=== PATIENT | male | born 1950 | race African-American/Black ===

== ENCOUNTER 2020-10-02 03:08 | Inpatient (IN) | payer OTHER, SELFPAY ==
--- OUTSIDE RECORDS SUMMARY | 2020-10-02 03:11 | XMS REPORT | Continuity of Care Document ---
:1950 Author Organization [facility] t Address [address] [place] [address] Care Team Providers Name Role Phone MD MIK Primary Care Physician Roger ANDREWS Attending Clinician Unavailable Doctor Unassigned, Name Attending Clinician Unavailable Torrie BLANCO Attending Clinician Urvashi SIERRA Attending Clinician Jabari SIERRA, K Attending Clinician Tavo SIERRA, C Attending Clinician Dominguez SIERRA, Nargis Attending Clinician Danyell SIERRA Attending Clinician Urvashi SIERRA Admitting Clinician Problems Condition Condition Condition Status Onset Resolution Last Treating Co mments Source Name Details Category Date Date Treatment Clinician Date Contusion Problem Active ALEX [facility] - Patient [facility] Allergies, Adverse Reactions, Alerts This patient has no known allergies or adverse reactions. Social History Social Habit Start Date Stop Date Quantity Comments Source Sex Assigned At [birth year] Male ALEX Arango. Roger ukes - 00:00:00 00:00:00 Patients [facility] Medications This patient has no known medications. Vital Signs Vital Name Observation Time Observation Value Comments Source Oxygen saturation by 2020-07-12 22:54:00 100 /min ALEX Fung - Pulse oximetry Patients [facility] Weight 2020-07-12 20:29:00 172 [lb_av] [facility] - Patients [facility] BMI (Body Mass 2020-07-12 20:29:00 26.2 kg/m2 [facility] - Index) Patients [facility] Procedures Procedure Date / Time Performed Performing Clinician Kallie e Computed tomography of 2020-07-12 00:00:00 ALEX Flannery - brain without Patients [facility] radi[facility]aque contrast [facility] Plan of Care Planned Activity Planned Date Details Comments Source Instructions Concussion/Head Injury [facility] Chelo Flannery - - Adult Patients [facility] Encounters Start End Encounter Admission Attending Care Care Encounter Source Date/Time Date/Time Type Type Clinicians Facility Department ID 2020-07-12 2020-07-12 [id number] 20:30:00 23:58:00 Emergency AARON Patients 78 Chandana es - Room [facility] 2020-05-23 2020-05-23 Orders Doctor GURWINDER [id number] 00:00:00 00:00:00 Only Unassigned, KAMALJIT [id number] [facility] 4.2.7.2.686 [id number] 2020-05-09 2020-05-09 Transition Tito Brownlee [id number] 00:00:00 00:00:00 of Care Yamileth Beltre [id number] [place] [id number] [id number] 2020-04-15 2020-05-08 [facility] 1.2.840. 114 [id number] 17:20:00 18:01:00 Encounter Sharri Barbozay 350.1.13 .10 Keith Vo [facility] 4.2.7.2.68 6 Sirena Mix [id number] 2020-04-21 2020-04-21 Multidisci Darinel Child [id number] 00:00:00 00:00:00 plinary KAMALJIT [id number] [facility] [id number] Results Test Description Test Time Test Comments Results Result Sour e Comments CT BRAIN WO 2020-07-12 21:38:00 [facility] : 1950 Sex: M [facility] [address] [place] [address] Patient Name: TROY FITZGERALD MR #: [id number] : 1950 Age/Sex: 70/M Req #: [id number] Adm Physician: Ordered by: AARON ANDREWS MD Report #: [id number] Location: Room/Bed: Procedure: [id number] CT/CT BRAIN WO Exam Date: 07/12/20 Exam Time: 2103 REPORT STATUS: Signed Exam: Head CT without contrast History: Trauma, fall Comparison studies: None Technique: Axial images were obtained from the skull base to the vertex. Coronal and sagittal images reconstructed from the axial data. Dose modulation, iterative reconstruction, and/or weight based adjustment of the mA/kV was utilized to reduce the radiation dose to as low as reasonably achievable. Radiation dose: Total DLP: 947 mGy*cm. Estimated effective dose: DLP x 0.015 Intravenous contrast: None Findings: Scalp and bones: Surgical changes of prior right parietal craniotomy. No acute fracture. Destructive lytic lesion. Confluent sclerotic changes with associated elbow expansion present within the bilateral sphenoid bones which extend along the mcrae of the sphenoid sinuses and sphenoid sinus septum, middle cranial fossa and into the basisphenoid clivus. Similar sclerotic changes are also present along the mcrae of the partially imaged maxillary sinuses. Brain sulci: Moderately prominent. Ventricles: Moderate compensatory dilatation. No hydrocephalus. Extra-axial spaces: No masses, no fluid collection. Parenchyma: Ill-defined and mildly confluent hypodensities in the supratentorial white matter are nonspecific but are most compatible with chronic microvascular ischemic changes. No masses, acute hemorrhage, acute or chronic vascular insults. Sellar/suprasellar region: No abnormalities. Craniocervical junction: Patent foramen magnum. No Chiari one malformation. Incidental findings: Atherosclerotic calcifications in the carotid siphons. IMPRESSION: No acute abnormalities. Chronic findings: 1. Moderate generalized parenchymal volume loss. 2. Mildly confluent supratentorial microvascular ischemic changes. 3. Prior right parietal craniotomy. 4. Confluent sclerotic changes in the central and middle skull base and partially imaged maxillae. Differential includes osseous metastatic disease or possibly fibrous dysplasia. In the absence of prior imaging for comparison to document stability, recommend nuclear medicine bone scan to further evaluate. Signed by: Dr. Agus Turner M.D. on 07/12/2020 9:56 PM Dictated By: AGUS TURNER MD 55 Transcribed By: FARZANEH on 07/12/202155 COPY TO: AARON ANDREWS MD
[2020-10-02 04:09] LABS: Absolute Lymphocytes (CBC) 1.7 K/uL (0.7-4.9); Basophils % 1.3 % (0-1.3); Hematocrit 35.5 % (39.6-49.0); MPV 8.6 fL (7.6-11.3); RBC Red Blood Cell Count 4.47 M/uL (4.33-5.43)
[2020-10-02 04:38] LABS: Protime INR 1.3
[2020-10-02 04:45] LABS: BUN Blood Urea Nitrogen 19 mg/dL (7-18); Bicarbonate 32 mmol/L (21-32); Glucose Level 190 mg/dL (74-106); Potassium 3.5 mmol/L (3.5-5.1); Sodium Level 135 mmol/L (136-145)
[2020-10-02] MEDS ORDERED: NA CHLORIDE 0.9% 1,000 ML ONE (04:49)
--- NOTE | 2020-10-02 05:29 | ER ---
Nurse's Notes [facility] Name: Abilio Torrez Jr Age: 70 yrs Sex: Male : 1950 Arrival Date: 10/02/2020 Time: 03:09 Bed 6 Private MD: Diagnosis: Pneumonia, unspecified organism-Multifocal Presentation: 10/02 03:12 Chief complaint: Patient states: Sent from [facility] for bleeding around sf his tracheostomy. No other complaints. Coronavirus screen: Client denies travel out of the [place] in the last 14 days. At this time, the client does not indicate any symptoms associated with coronavirus-19. Ebola Screen: Patient negative for fever greater than or equal to 101.5 degrees Fahrenheit, and additional compatible Ebola Virus Disease symptoms Patient denies exposure to infectious person. Patient denies travel to an Ebola-affected area in the 21 days before illness onset. No symptoms or risks identified at this time. Initial Sepsis Screen: Does the patient meet any 2 criteria? HR > 90 bpm. No. Patient's initial sepsis screen is negative. Does the patient have a suspected source of infection? Yes: Productive cough/pneumonia. Risk Assessment: Do you want to hurt yourself or someone else? Patient reports no desire to harm self or others. Onset of symptoms was October 02, 2020. 03:12 Method Of Arrival: EMS: [facility] 03:12 Acuity: STEFANI 3 sf Triage Assessment: 03:12 General: Appears in no apparent distress. comfortable, unkempt, Behavior is calm, sf cooperative. Pain: Denies pain. EENT: No signs and/or symptoms were reported regarding the EENT system. Neuro: No deficits noted. Level of Consciousness is awake, alert, Oriented to person, place, time, situation. Cardiovascular: No deficits noted. Patient's skin is warm and dry. Respiratory: Reports cough that is productive, Airway via trache Trachea midline Respiratory effort is even, unlabored, Respiratory pattern is regular, symmetrical. GI: No signs and/or symptoms were reported involving the gastrointestinal system. : No signs and/or symptoms were reported regarding the genitourinary system. Historical: - Allergies: 03:26 No Known Allergies; sf - Home Meds: 03:26 acetaminophen 325 mg Oral tab 2 tabs every 8 hours as needed [Active]; acetylcysteine sf 200 mg/mL (20 %) miscellaneous soln 3 mL 3 times per day [Active]; doxazosin 4 mg oral tab 1 tab once daily [Active]; famotidine 20 mg Oral tab 1 tab every 12 hours [Active]; guaifenesin 100 mg/5 mL Oral liqd 10 mL every 4 hours [Active]; DuoNeb 0.5 mg-3 mg(2.5 mg base)/3 mL Inhl nebu 3 mL every 4 hours as needed [Active]; Miralax 17 gram/dose Oral powd once daily [Active]; multivitamin oral tab daily [Active]; scopolamine transdermal transdermal 1 patch every 72 hours [Active]; senna 8.6 mg oral tab 1 tabs twice a day [Active]; sodium chloride 7 % inhalation nebu 4 mL twice a day [Active]; - PMHx: 03:26 Laryngeal CA; Squamous cell carcinoma; BPH; COPD; Hypertension; Cirrhosis; sf - PSHx: 03:26 Unable to obtain; sf - Immunization history:: Adult Immunizations up to date. - Social history:: Smoking status: Patient/guardian denies using tobacco, Patient/guardian denies using alcohol, street drugs, IV drugs. - Family history:: not pertinent. - Hospitalizations: : No recent hospitalization is reported. Screenin:12 Abuse screen: Denies threats or abuse. Nutritional screening: No deficits noted. ea Tuberculosis screening: No symptoms or risk factors identified. Fall Risk None identified. Assessment: 03:12 Reassessment: SEE TRIAGE ASSESSMENT. sf 04:10 Reassessment: Patient appears in no apparent distress at this time. No changes from sf previously documented assessment. Patient and/or family updated on plan of care and expected duration. Pain level reassessed. Patient is alert, oriented x 3, equal unlabored respirations, skin warm/dry/pink. 05:00 Reassessment: Patient appears in no apparent distress at this time. No changes from sf previously documented assessment. Patient and/or family updated on plan of care and expected duration. Pain level reassessed. Patient is alert, oriented x 3, equal unlabored respirations, skin warm/dry/pink. Patient denies pain at this time. 05:32 Reassessment: Patient appears in no apparent distress at this time. No changes from sf previously documented assessment. Patient and/or family updated on plan of care and expected duration. Pain level reassessed. Patient is alert, oriented x 3, equal unlabored respirations, skin warm/dry/pink. Patient denies pain at this time. 05:37 Reassessment: Called lab to add on Liver Function test to blood already in lab. sf 06:10 Reassessment: Patient appears in no apparent distress at this time. No changes from previously documented assessment. Patient and/or family updated on plan of care and expected duration. Pain level reassessed. Patient is alert, oriented x 3, equal unlabored respirations, skin warm/dry/pink. 07:00 Reassessment: Patient appears in no apparent distress at this time. Patient and/or hb family updated on plan of care and expected duration. Pain level reassessed. Patient is alert, oriented x 3, equal unlabored respirations, skin warm/dry/pink. 08:00 Reassessment: Patient appears in no apparent distress at this time. Patient and/or hb family updated on plan of care and expected duration. Pain level reassessed. Patient is alert, oriented x 3, equal unlabored respirations, skin warm/dry/pink. 09:00 Reassessment: Patient appears in no apparent distress at this time. Patient and/or hb family updated on plan of care and expected duration. Pain level reassessed. Patient is alert, oriented x 3, equal unlabored respirations, skin warm/dry/pink. Vital Signs: 03:10 BP 95 / 61; Pulse 96; Resp 18; Pulse Ox 93% ; sf 03:12 Pulse 106; Resp 18; Temp 98.8; Pulse Ox 98% ; Weight 82.55 kg; Height 6 ft. 0 in. sf (182.88 cm); Pain 0/10; 04:00 BP 89 / 65; Pulse 89; Resp 18; Pulse Ox 99% ; sf 04:04 BP 93 / 71; sf 04:20 BP 87 / 67; Pulse 89; Resp 18; Pulse Ox 98% ; sf 04:55 BP 98 / 69; Pulse 95; Resp 18; Pulse Ox 96% ; sf 05:00 BP 117 / 83; Pulse 82; Resp 18; Pulse Ox 99% ; sf 05:20 BP 107 / 62; Pulse 78; Resp 18; Pulse Ox 100% ; sf 07:30 BP 106 / 74; Pulse 90; Resp 18; Pulse Ox 97% ; hb 08:30 BP 106 / 70; Pulse 82; Resp 17; Pulse Ox 97% on R/A; hb 09:20 BP 104 / 66; Pulse 77; Resp 16; Temp 97.9; Pulse Ox 98% on R/A; Pain 0/10; hb 10:00 BP 106 / 67; ss 10:34 BP 103 / 68; Pulse 77; Resp 16; Pulse Ox 97% on R/A; hb 03:12 Body Mass Index 24.68 (82.55 kg, 182.88 cm) sf 10:34 post sterile trach suctioning, 50mL white/yellow/thick sputum removed, pt reports "feel hb better". ED Course: 03:09 Patient arrived in ED. cl3 03:10 Max Cornell MD is Attending Physician. rn 03:11 Jaison Rubio, FRANCIS is Primary Nurse. sf 03:12 Patient has correct armband on for positive identification. Placed in gown. Bed in low sf position. Call light in reach. Side rails up X2. Pulse ox on. NIBP on. Door closed. Noise minimized. Visitors limited. Lights dimmed. Verbal reassurance given. 03:13 Arm band placed on right wrist. Patient placed in an exam room, on a stretcher, on ea pulse oximetry. 03:14 Triage completed. sf 03:30 X-ray(s) taken. sf 03:34 XRAY Chest (1 view) Sent. sf 03:35 Suctioned via trachea - moderate amount thick yellow sputum by respiratory. sf 03:45 Initial lab(s) drawn, by ia, sent to lab. First set of blood cultures drawn by ia, Respiratory culture obtained via tracheostomy suctioning by respiratory and sent to lab. Inserted saline lock: 20 gauge in left forearm, using aseptic technique. Blood collected. 03:47 XRAY Chest (1 view) In Process Unspecified. EDMS 04:00 CBC with Diff Sent. sf 04:00 Basic Metabolic Panel Sent. sf 04:15 Second set of blood cultures drawn by ia. Inserted saline lock: 20 gauge in right sf forearm, using aseptic technique. Blood collected. 04:29 Blood Culture Adult (2) Sent. sf 04:34 CT Chest Wo Con Sent. sf 05:00 CT Chest Wo Con In Process Unspecified. EDMS 05:00 COVID-19 : Document "Date of Symptom Onset" if Symptomatic. Sent. sf 05:00 COVID swab sent to lab. sf 05:26 No provider procedures requiring assistance completed. Patient admitted, IV remains in sf place. 05:28 Bam Lincoln DO is Hospitalizing Provider. rn 07:11 Report given to FRANCIS Rodgers and FRANCIS Jackson. sf Administered Medications: 04:34 Drug: Sodium Chloride 0.9% 1000 ml Route: IVPB; Site: left forearm; sf 05:32 Follow up: IV Status: Completed infusion; IV Intake: 1000ml sf 05:32 Follow up: Response: No adverse reaction sf 05:36 Drug: LevaQUIN 750 mg Volume: 150 ml; Route: IVPB; Infused Over: 90 mins; Site: left sf forearm; 07:08 Follow up: IV Status: Completed infusion; IV Intake: 150ml sf Intake: 05:32 IV: 1000ml; Total: 1000ml. sf 07:08 IV: 150ml; Total: 1150ml. sf Outcome: 05:28 Decision to Hospitalize by Provider. rn 10:37 Patient left the ED. ss Signatures: Dispatcher [employer] EDMS Max Cornell MD MD rn Smirch, Shelby, RN RN Ana Maria Lucas RN RN hb Antunez, Elena, RN RN ea Lewis, Charde cl3 Jaison Rubio RN RN sf Corrections: (The following items were deleted from the chart) 04:09 03:12 BP 149 / 132; Pulse 106bpm; Resp 18bpm; Pulse Ox 98%; Temp 98.8F; 82.55 kg; sf Height 6 ft. 0 in.; BMI: 24.6; Pain 0/10; sf 05:39 05:38 IV Status: Completed infusion; IV Intake: 1000ml [facility] 05:39 05:38 Response: No adverse reaction sf 09:45 09:39 BP 104 / 66; Pulse 77bpm; Resp 16bpm; Pulse Ox 98% RA; Temp 97.9F; Pain 0/10; hb hb
--- NOTE | 2020-10-02 05:29 | EDPHYS ---
Physician Documentation [facility] Name: Abilio Torrez Jr Age: 70 yrs Sex: Male : 1950 Arrival Date: 10/02/2020 Time: 03:09 Bed 6 Private MD: ED Physician Max Cornell HPI: 10/02 03:20 This 70 yrs old Black Male presents to ER via EMS with complaints of cough. rn 03:20 The patient or guardian reports cough, that is intermittent, described as mild, with rn productive sputum, that is white. Onset: The symptoms/episode began/occurred just prior to arrival. Severity of symptoms: At their worst the symptoms were mild, in the emergency department the symptoms have improved. Modifying factors: The symptoms are alleviated by nothing, the symptoms are aggravated by nothing. The patient has experienced similar episodes in the past. The patient has not recently seen a physician. Per EMS report, senior living noted blood and mucous from tracheostomy, EMS suctioned and patient improved, no further bleeding noted. Per report was small amount. NO fever. Patient reports now feels fine. No recent change or manipulation of tracheostomy tube. No known trauma. Patient denies pain.. Historical: - Allergies: 03:26 No Known Allergies; sf - Home Meds: 03:26 acetaminophen 325 mg Oral tab 2 tabs every 8 hours as needed [Active]; acetylcysteine sf 200 mg/mL (20 %) miscellaneous soln 3 mL 3 times per day [Active]; doxazosin 4 mg oral tab 1 tab once daily [Active]; famotidine 20 mg Oral tab 1 tab every 12 hours [Active]; guaifenesin 100 mg/5 mL Oral liqd 10 mL every 4 hours [Active]; DuoNeb 0.5 mg-3 mg(2.5 mg base)/3 mL Inhl nebu 3 mL every 4 hours as needed [Active]; Miralax 17 gram/dose Oral powd once daily [Active]; multivitamin oral tab daily [Active]; scopolamine transdermal transdermal 1 patch every 72 hours [Active]; senna 8.6 mg oral tab 1 tabs twice a day [Active]; sodium chloride 7 % inhalation nebu 4 mL twice a day [Active]; - PMHx: 03:26 Laryngeal CA; Squamous cell carcinoma; BPH; COPD; Hypertension; Cirrhosis; sf - PSHx: 03:26 Unable to obtain; sf - Immunization history:: Adult Immunizations up to date. - Social history:: Smoking status: Patient/guardian denies using tobacco, Patient/guardian denies using alcohol, street drugs, IV drugs. - Family history:: not pertinent. - Hospitalizations: : No recent hospitalization is reported. ROS: 03:20 Constitutional: Negative for fever, chills Eyes: Negative for injury, pain, redness, rn and discharge, ENT: Negative for injury, pain, and discharge, Neck: Negative for injury, pain, and swelling, Cardiovascular: Negative for chest pain, palpitations, and edema, Respiratory: Negative for shortness of breath,wheezing, and pleuritic chest pain, Abdomen/GI: Negative for abdominal pain, nausea, vomiting, diarrhea, and constipation, Back: Negative for injury and pain, MS/Extremity: Negative for injury and deformity, Skin: Negative for injury, rash, and discoloration, Neuro: Negative for headache, weakness, numbness, tingling, and seizure. Exam: 03:20 Constitutional: Thin male, no acute distress Head/Face: Normocephalic, atraumatic. rn Neck: + midline tracheostomy tube, clear/white sputum, no blood, no active bleeding at site. Cardiovascular: Regular rate and rhythm. No pulse deficits. Respiratory: No increased work of breathing, no retractions or nasal flaring. Abdomen/GI: soft, non-tender Skin: Warm, dry MS/ Extremity: Pulses equal, no cyanosis. Neuro: Awake and alert, GCS 15 Vital Signs: 03:10 BP 95 / 61; Pulse 96; Resp 18; Pulse Ox 93% ; sf 03:12 Pulse 106; Resp 18; Temp 98.8; Pulse Ox 98% ; Weight 82.55 kg; Height 6 ft. 0 in. sf (182.88 cm); Pain 0/10; 04:00 BP 89 / 65; Pulse 89; Resp 18; Pulse Ox 99% ; sf 04:04 BP 93 / 71; sf 04:20 BP 87 / 67; Pulse 89; Resp 18; Pulse Ox 98% ; sf 04:55 BP 98 / 69; Pulse 95; Resp 18; Pulse Ox 96% ; sf 05:00 BP 117 / 83; Pulse 82; Resp 18; Pulse Ox 99% ; sf 05:20 BP 107 / 62; Pulse 78; Resp 18; Pulse Ox 100% ; sf 07:30 BP 106 / 74; Pulse 90; Resp 18; Pulse Ox 97% ; hb 08:30 BP 106 / 70; Pulse 82; Resp 17; Pulse Ox 97% on R/A; hb 09:20 BP 104 / 66; Pulse 77; Resp 16; Temp 97.9; Pulse Ox 98% on R/A; Pain 0/10; hb 10:00 BP 106 / 67; ss 10:34 BP 103 / 68; Pulse 77; Resp 16; Pulse Ox 97% on R/A; hb 03:12 Body Mass Index 24.68 (82.55 kg, 182.88 cm) sf 10:34 post sterile trach suctioning, 50mL white/yellow/thick sputum removed, pt reports "feel hb better". MDM: 03:10 Patient medically screened. rn 04:15 ED course: Virtual radiology rpeorts right line on cxr possibly pneumothorax vs skin rn fold, recommend further imaging, ordered ct scan of chest. . 05:18 Differential Diagnosis: Bronchitis Upper Respiratory Infection Viral Syndrome rn Pneumonia. Data reviewed: vital signs, nurses notes, lab test result(s), radiologic studies, CT scan, plain films, and as a result, I will admit patient. Counseling: I had a detailed discussion with the patient and/or guardian regarding: the historical points, exam findings, and any diagnostic results supporting the discharge/admit diagnosis, lab results, radiology results, the need for further work-up and treatment in the hospital. Admission orders: after a detailed discussion of the patient's condition and case, the admit orders are written by me. ED course: Pt with likely early pneumonia, increased secretions, borderline BP. CT does not show pneumothorax so likely just skin fold on CXR. Will obs to hospitalist service. . 10/02 03:11 Order name: CBC with Diff rn 10/02 03:11 Order name: Basic Metabolic Panel rn 10/02 03:11 Order name: Protime (+inr); Complete Time: 04:42 rn 10/02 03:11 Order name: Ptt, Activated; Complete Time: 04:42 rn 10/02 03:11 Order name: Procalcitonin; Complete Time: 05:33 rn 10/02 03:11 Order name: CBC with Automated Diff; Complete Time: 04:35 EDMS 10/02 03:11 Order name: Basic Metabolic Panel EDMS 10/02 03:12 Order name: Blood Culture Adult (2) rn 10/02 03:12 Order name: Sputum Culture rn 10/02 03:12 Order name: Blood Culture EDMS 10/02 04:36 Order name: COVID-19 : Document "Date of Symptom Onset" if Symptomatic. rn 10/02 05:37 Order name: Liver (Hepatic) Function EDMS 10/02 03:10 Order name: XRAY Chest (1 view) rn 10/02 03:11 Order name: IV Start; Complete Time: 04:00 rn 10/02 03:12 Order name: Suction; Complete Time: 03:36 rn 10/02 04:06 Order name: CT Chest Wo Con rn 10/02 06:16 Order name: SARS-COV-2 RT PCR EDMS Administered Medications: 04:34 Drug: Sodium Chloride 0.9% 1000 ml Route: IVPB; Site: left forearm; sf 05:32 Follow up: IV Status: Completed infusion; IV Intake: 1000ml sf 05:32 Follow up: Response: No adverse reaction sf 05:36 Drug: LevaQUIN 750 mg Volume: 150 ml; Route: IVPB; Infused Over: 90 mins; Site: left sf forearm; 07:08 Follow up: IV Status: Completed infusion; IV Intake: 150ml sf Disposition: 10/02/20 05:28 Hospitalization ordered by Bam Lincoln for Inpatient Admission. Preliminary diagnosis is Pneumonia, unspecified organism - Multifocal. - Bed requested for Telemetry/MedSurg (Inpatient). - Status is Inpatient Admission. ss - Condition is Stable. - Problem is new. - Symptoms have improved. Signatures: Dispatcher [employer] EDDE Max Cornell MD MD rn Martinez, Eric em1 Renetta Perrin RN RN ss Blayne Alvarez, AIR TABLE OPERATOR-C AIR TABLE OPERATOR-Cla1 Nelson Strickland, FRANCIS RN Jaison Cat RN RN sf Corrections: (The following items were deleted from the chart) 05:16 04:37 CORONAVIRUS ordered. EDDE EDMS 05:36 05:34 HEPATIC FUNCTION+C.LAB.BRZ ordered. EDDE EDMS 07:16 05:28 Hospitalization Ordered by Bam Lincoln DO for Inpatient Admission. Preliminary em1 diagnosis is Pneumonia, unspecified organism - Multifocal. Bed requested for Telemetry/MedSurg (Inpatient). Status is Inpatient Admission. Condition is Stable. Problem is new. Symptoms have improved. rn 09:00 07:16 10/02/2020 05:28 Hospitalization Ordered by Bam Lincoln DO for Inpatient ja1 Admission. Preliminary diagnosis is Pneumonia, unspecified organism - Multifocal. Bed requested for [facility] ER HOLD. Status is Inpatient Admission. Condition is Stable. Problem is new. Symptoms have improved. em1 10:37 09:00 10/02/2020 05:28 Hospitalization Ordered by Bam Lincoln DO for Inpatient ss Admission. Preliminary diagnosis is Pneumonia, unspecified organism - Multifocal. Bed requested for Telemetry/MedSurg (Inpatient). Status is Inpatient Admission. Condition is Stable. Problem is new. Symptoms have improved. ja1
--- NOTE | 2020-10-02 05:36 | P.HP ---
Certification for Inpatient Patient admitted to: Observation With expected LOS: <2 Midnights Patient will require the following post-hospital care: None Practitioner: I am a practitioner with admitting privileges, knowledge of patient current condition, hospital course, and medical plan of care. Services: Services provided to patient in accordance with Admission requirements found in Title 42 Section 412.3 of the Code of Federal Regulations Patient History Date of Service: 10/02/20 Primary Care Provider: residential physician Reason for admission: Multifocal pneumonia, hypotension History of Present Illness: 70-year-old male with history of laryngeal cancer status post tracheostomy and PEG tube, hypertension, cirrhosis, COPD presents emergency department for low blood pressure and difficulty breathing. Patient with copious secretions from tracheostomy tube requiring frequent suctioning and blood pressure of 80/40 at the custodial, blood pressure has remained relatively low throughout ED course. Labs significant for white blood cell count 6.6 sodium 135 glucose [address] chest significant for emphysema with superimposed multifocal pneumonia with greatest burden of the right lower lobe, mucus plugging present in the posterior right basal bronchials and intermediate pulmonary nodules present interspersed with infiltrate up to 1 cm could be related to infection recommend noncontrast CT at 3-[address] noncontrast at 18-24 months and nodules do not resolve. Patient remains relatively hypotensive with copious secretions from tracheostomy site, ED provider wishes to admit for pneumonia. Allergies No Known Allergies Allergy (Unverified 08/28/14 15:19) - Past Medical/Surgical History -: Laryngeal cancer status post tracheostomy/PEG tube -: Hypertension -: Cirrhosis of the liver -: COPD -: Tracheostomy -: PEG tube Psychosocial/ Personal History: Patient currently resides in [facility]ial - Family History Father Notes: Extremely difficult understand patient, unable to obtain at this time. - Social History Smoking Status: Former smoker Alcohol use: No CD- Drugs: No Caffeine use: No Place of Residence: [facility] Review of Systems 10-point ROS is otherwise unremarkable Respiratory: Cough, Shortness of Breath, Sputum, As per HPI Physical Examination - Physical Exam General: Alert, In no apparent distress, Oriented x3 HEENT: Atraumatic, Normocephalic, Other (Mucous membranes dry) Respiratory: Clear to auscultation bilaterally, Diminished, Crackles/rales Cardiovascular: Regular rate/rhythm, Normal S1 S2 Capillary refill: <2 Seconds Gastrointestinal: Normal bowel sounds, Soft and benign Musculoskeletal: No contractures, No erythema, No tenderness Integumentary: No significant lesion, No tenderness/swelling, No erythema Neurological: Normal tone, Sensation intact, Cranial nerves 3-12 intact - Studies Laboratory Data (last 24 hrs) 10/02/20 03:45: PT 15.0 H, INR 1.30, APTT 49.4 H 10/02/20 03:45: Sodium 135 L, Potassium 3.5, BUN 19 H, Creatinine 0.65, Glucose 190 H 10/02/20 03:45: WBC 6.60, Hgb 11.2 L, Hct 35.5 L, Plt Count 343 Assessment and Plan - Plan Assessment Dyspnea, increased sputum production related to multifocal pneumonia complicated by history of laryngeal cancer with tracheostomy Dysphagia status post PEG tube placement Hypertension History of cirrhosis COPD Plan Dyspnea, increased sputum production related to multifocal pneumonia complicated by history of laryngeal cancer with tracheostomy: Blood and sputum cultures obtained, continue with IV Levaquin at this time. Patient requiring frequent suctioning from tracheostomy tube, will provide this as necessary. COVID test pending at this time. DVT prophylaxis Lovenox 40 mg subcutaneous once daily. Dysphagia status post PEG tube placement: Continue tube feedings, site appears healthy without redness swelling or drainage. Will consult dietary. Hypertension: Obtain and continue home meds History of cirrhosis: LFTs pending at this time. COPD: Documented history of COPD, patient unaware of diagnosis. Will provide patient with nebs/steroids. Discharge Plan: Home Plan to discharge in: 24 Hours - Advance Directives Does patient have a Living Will: No Does patient have a Durable POA for Healthcare: No - Code Status/Comfort Care Code Status Assessed: Yes (Full code) Critical Care: No Time Spent Managing Pts Care (In Minutes): 55
[2020-10-02] MEDS ORDERED: Levofloxacin 750mg IV 750 MG/150 ML BAG IV ONE (05:47)
[2020-10-02 05:49] LABS: ALT/SGPT 31 U/L (12-78); AST/SGOT 25 U/L (15-37); Albumin 2.6 g/dL (3.4-5.0); Alkaline Phosphatase 76 U/L (45-117); Bilirubin Direct 0.1 mg/dL (0-0.2); Bilirubin Total 0.3 mg/dL (0.2-1.0); Protein, Total 8.1 g/dL (6.4-8.2)
--- NOTE | 2020-10-02 10:11 | RAD REPORT ---
EXAM DESCRIPTION: CT - Thorax Wo Jose - 10/02/2020 6:01 am COMPARISON: Chest radiograph October 02, 2020 CLINICAL HISTORY: [facility] MAIN questionable pneumothorax on cxr TECHNIQUE: CT images through the chest without IV contrast. Multiplanar reformats. Automated expos ure control was utilized on this examination as a dose lowering technique. CT CHEST FINDINGS: Heart and mediastinum: Heart size is normal. Moderate multivessel calcified atherosclerosi s. Chronically calcified hilar and mediastinal lymph nodes are noted. Thyroid gland: Visualized portions are normal. Lungs: Emphysema is present. There are superimposed tree-in-bud nodularity and groundglass opacities in the posterior right upper, right middle, and in the lower lobes. A few chronic calcified granuloma s are noted. Pulmonary nodular opacities measure up to 1.0 cm (right upper lobe on series 201 image 3 0). This are indeterminate and could be related to the acute infection. Airways: Tracheostomy tube in place. Mucous plugging is noted in the posterior right basal bronchiole s. No bronchiectasis. Pleura: No pneumothorax. No significant pleural effusion. Subphrenic structures: Calcified granulomas are noted in the liver and spleen. A PEG tube is in place . Musculoskeletal and soft tissues: Thoracic spondylosis is present. Chronic posterior left eighth rib fracture. IMPRESSION: 1. Emphysema with superimposed multifocal pneumonia with the greatest burden in the righ t lower lobe. Imaging features can be seen with COVID-19 pneumonia, though are nonspecific and can oc cur with a variety of infectious and noninfectious processes 2. Mucous plugging is present in the posterior right basal bronchioles. 3. Indeterminate pulmonary nodules are present, interspersed with infiltrate. These measure up to 1.0 cm and could be related to infection. Recommend a non-contrast Chest CT at 3-6 months, then another non-contrast Chest CT at 18-24 months if nodules do not resolve. 4. Moderate atherosclerosis. Electronically signed by: Albert Melissa MD 10/02/2020 5:17 AM CDT Due to temporary technical issues with the PACS/Fluency reporting system, reports are being signed by the in house radiologists without review as a courtesy to insure prompt reporting. The interpreting radiologist is fully responsible for the content of the report.
--- NOTE | 2020-10-02 10:13 | RAD REPORT ---
EXAM DESCRIPTION: RAD - Chest Single View - 10/02/2020 3:47 am ADDENDUM #1 THIS REPORT CONTAINS FINDINGS THAT MAY BE CRITICAL TO PATIENT CARE: The findings were communicated via telephone conference with Dr. Cornell on 10/02/2020 4:15 AM CDT. The r esults were acknowledged and understood. lectronically signed by: Albert Melissa MD 10/02/2020 4:15 AM CDT End of Addendum EXAM DESCRIPTION: Chest Radiography COMPARISON: Chest radiograph April 15, 2020 report only CLINICAL HISTORY: [facility] MAIN COUGH FINDINGS: A single AP view of the chest demonstrates a normal cardiomediastinal silhouette. Tracheos mikhail tube in place. No pleural effusion. There is a line along the right lateral pleura. Mild bilateral perihilar opaciti es are present. Degenerative changes of the shoulders. IMPRESSION: 1. A line along the right lateral pleural could represent small pneumothorax, skin folds , or overlying sheets. Recommend repeat radiograph. 2. Mild bilateral perihilar opacities favor early infection or mild edema. Electronically signed by: Albert Melissa MD 10/02/2020 3:58 AM CDT Due to temporary technical issues with the PACS/Fluency reporting system, reports are being signed by the in house radiologists without review as a courtesy to insure prompt reporting. The interpreting radiologist is fully responsible for the content of the report.
[2020-10-02] MEDS ORDERED: ONDANSETRON 4 MG/2 ML VIAL IV PRN (11:01)
[2020-10-02] MEDS: IPRATROPIUM BROM 0.5MG/2.5ML NEB SCH ×3 (11:01→20:20)
[2020-10-02] MEDS: ALBUTEROL 2.5 MG/3 ML NEB SOL NEB SCH ×3 (11:01→20:20)
[2020-10-02] MEDS: NA CHLORIDE 0.9% 1,000 ML IV SCH ×2 (11:20→21:15)
[2020-10-02] MEDS: METHYLPREDNISOLONE 40 MG INJ IV SCH ×2 (11:26→16:53)
[2020-10-02] MEDS: ENOXAPARIN 40 MG/0.4 ML SQ SCH (11:26)
[2020-10-02 12:10] VITALS: BMI 16.9
--- NOTE | 2020-10-02 13:56 | P.CNS ---
Date of Consult: 10/02/20 Primary Care Provider: [facility] physician Chief Complaint: Multifocal pneumonia, hypotension History of Present Illness: Patient is 70 years of age with a history of laryngeal cancer status post tracheostomy and a PEG tube multiple other medical problems including hypertension cirrhosis COPD admitted with low pressure difficulty breathing copious secretions admitted with the possibility of pneumonia he is doing a little better still less some cough congestion Allergies No Known Allergies Allergy (Verified 10/02/20 11:29) - Past Medical/Surgical History Diabetic: No -: Laryngeal cancer status post tracheostomy/PEG tube -: Hypertension -: Cirrhosis of the liver -: COPD -: Tracheostomy -: PEG tube Psychosocial/ Personal History: Patient currently resides in [facility] - Family History Father Notes: Extremely difficult understand patient, unable to obtain at this time. - Social History Smoking Status: Current every day smoker Alcohol use: No CD- Drugs: No Caffeine use: No Place of Residence: [facility] Review of Systems General: Weakness Respiratory: Cough, Shortness of Breath Physical Examination Temp Pulse Resp BP Pulse Ox 97.6 F 84 16 107/59 L 95 10/02/20 12:00 10/02/20 12:00 10/02/20 12:00 10/02/20 12:00 10/02/20 12:00 General: Alert, Moderate distress Respiratory: Expiratory wheezes Cardiovascular: No edema, Regular rate/rhythm Gastrointestinal: Normal bowel sounds, Soft and benign Laboratory Data (last 24 hrs) 10/02/20 05:34: Total Bilirubin Cancelled, AST Cancelled, ALT Cancelled, Alkaline Phosphatase Cancelled 10/02/20 03:45: PT 15.0 H, INR 1.30, APTT 49.4 H 10/02/20 03:45: Sodium 135 L, Potassium 3.5, BUN 19 H, Creatinine 0.65, Glucose 190 H, Total Bilirubin 0.3, AST 25, ALT 31, Alkaline Phosphatase 76 10/02/20 03:45: WBC 6.60, Hgb 11.2 L, Hct 35.5 L, Plt Count 343 - Problems (1) Pneumonia Current Visit: Yes Status: Acute Plan: Patient is 70 years of age multiple medical problems laryngeal cancer tracheostomy PEG tube admitted with shortness of breath hypotension as currently stable final signs are all stable minimal changes on the CT scan in the right lower lobe mild microcytosis probably the worsening of his COPD the add steroids bronchodilator change can have antibiotics via PEG tube stable evaluate for discharge tomorrow room-air saturation is satisfactory I am not sure what bronchodilators is on at home in her home medication and is CA nebulize bronchodilators he poly needs a long-acting bronchodilator at home benefit from [facility] Qualifiers: Pneumonia type: due to unspecified organism
--- NOTE | 2020-10-02 15:08 | P.PN ---
Subjective Date of Service: 10/02/20 Primary Care Provider: [facility] physician Chief Complaint: Multifocal pneumonia, hypotension Subjective: Improving Physical Examination - Vital Signs Temperature: 97.6 F Blood Pressure: 107/59 Pulse: 84 Respirations: 16 Pulse Ox (%): 95 - Studies Laboratory Data (last 24 hrs) 10/02/20 05:34: Total Bilirubin Cancelled, AST Cancelled, ALT Cancelled, Alkaline Phosphatase Cancelled 10/02/20 03:45: PT 15.0 H, INR 1.30, APTT 49.4 H 10/02/20 03:45: Sodium 135 L, Potassium 3.5, BUN 19 H, Creatinine 0.65, Glucose 190 H, Total Bilirubin 0.3, AST 25, ALT 31, Alkaline Phosphatase 76 10/02/20 03:45: WBC 6.60, Hgb 11.2 L, Hct 35.5 L, Plt Count 343 Microbiology Data (last 24 hrs): 10/02/20 03:45 Sputum Sputum Gram Stain - Final Assessment & Plan Discharge Plan: [facility] Plan to discharge in: Greater than 2 days Physician Review Additional Text: Physical exam: Patient alert. Cooperative. Heart: Regular rate and rhythm Lungs: With increase wheezing. Copious amounts of sputum production from trac heostomy. Abdomen: Soft nontender nondistended Extremities: Muscle wasting noted. Assessment Dyspnea, increased sputum production related to multifocal pneumonia complicated by history of laryngeal cancer with tracheostomy Dysphagia status post PEG tube placement Hypertension History of cirrhosis COPD Plan Dyspnea, increased sputum production related to multifocal pneumonia complicated by history of laryngeal cancer with tracheostomy: Continue IV antibiotic therapy. Continue with pulmonology recommendations. We will add medication for COPD. Continue IV steroids. Continue frequent suctioning from tracheostomy. Continue snf medication. DVT prophylaxis in place. Anticipate improvement over the next 48 hours. Dysphagia status post PEG tube placement: Continue tube feedings, site appears healthy without redness swelling or drainage. Will consult dietary to address daily needs. Hypertension: We will verify snf medication History of cirrhosis: LFTs unremarkable. We will monitor this closely.. COPD: Pulmonology recommends that the patient will require COPD medication at discharge. Continue with current plan of care. Time Spent Managing Pts Care (In Minutes): 55
[2020-10-02] MEDS ORDERED: DOCUSATE NA/SENNA CONC 1 TAB PO PRN (15:48)
[2020-10-02] MEDS ORDERED: SCOPOLAMINE HYDROBROMIDE PATCH TD SCH (16:00)
[2020-10-02] MEDS: ACETYLCYST 20% 4 ML VIAL IH SCH (20:00)
[2020-10-02] MEDS: ARFORMOTEROL TARTRATE 15 MCG/2 ML VIAL.NEB NEB SCH (20:20)
[2020-10-02] MEDS ORDERED: DOCUSATE SODIUM PO SCH (21:00)
[2020-10-02] MEDS ORDERED: SENNOSIDES PO SCH (21:00)
[2020-10-02] MEDS ORDERED: ACETYLCYSTEINE 200 MG/ML NEB SCH (21:00)
[2020-10-03] MEDS: METHYLPREDNISOLONE 40 MG INJ IV SCH ×2 (00:59→09:28)
[2020-10-03] MEDS: JEVITY 1.5 CAL LIQUID 1,000 ML BOT FT SCH ×3 (00:59→12:00)
[2020-10-03] MEDS: ALBUTEROL 2.5 MG/3 ML NEB SOL NEB SCH ×2 (01:30→07:22)
[2020-10-03] MEDS: IPRATROPIUM BROM 0.5MG/2.5ML NEB SCH ×2 (01:30→07:22)
[2020-10-03 05:48] LABS: Absolute Lymphocytes (CBC) 0.9 K/uL (0.7-4.9); Basophils % 0.4 % (0-1.3); Hematocrit 34.3 % (39.6-49.0); Lymphocytes % 12.8 % (15.3-44.8); MPV 8.2 fL (7.6-11.3); RBC Red Blood Cell Count 4.32 M/uL (4.33-5.43)
[2020-10-03] MEDS ORDERED: Levofloxacin500mg IV 500 MG/100 ML BAG IV SCH (06:00)
[2020-10-03 07:17] LABS: ALT/SGPT 23 U/L (12-78); AST/SGOT 18 U/L (15-37); Albumin 2.3 g/dL (3.4-5.0); Alkaline Phosphatase 62 U/L (45-117); BUN Blood Urea Nitrogen 17 mg/dL (7-18); Bicarbonate 31 mmol/L (21-32); Bilirubin Total 0.3 mg/dL (0.2-1.0); Ferritin 843.7 ng/mL (26-388); Glucose Level 104 mg/dL (74-106); HDL Cholesterol 63 mg/dL (40-60); LDL Cholesterol, Calculated 88 (<130); Magnesium 2.1 mg/dL (1.8-2.4); Potassium 4.3 mmol/L (3.5-5.1); Protein, Total 7.3 g/dL (6.4-8.2); Sodium Level 139 mmol/L (136-145); Transferrin 193 mg/dL (200-360)
[2020-10-03] MEDS: ACETYLCYST 20% 4 ML VIAL IH SCH (07:22)
[2020-10-03] MEDS: ARFORMOTEROL TARTRATE 15 MCG/2 ML VIAL.NEB NEB SCH (07:22)
[2020-10-03 08:36] VITALS: O2SAT 92
--- NOTE | 2020-10-03 08:37 | RAD REPORT ---
EXAM DESCRIPTION: RAD - Chest Pa And Lat (2 Views) - 10/03/2020 7:10 am CLINICAL HISTORY: follow up pneumonia COMPARISON: CT chest October 02, portable chest October 02 TECHNIQUE: Frontal and lateral views of the chest were obtained. FINDINGS: The lungs are extensively fibrotic as a baseline. Flattened diaphragm and increased retro sternal space noted. Patient has a trach tube in place. Increased interstitial opacification at each lung base consistent with superimposed pneumonia. Pattern is not substantially different from compari son imaging. Heart size is normal and central vasculature is within normal limits. No pleural effusi on or pneumothorax seen. No acute bony finding noted. No aortic abnormality. IMPRESSION: Lung base pneumonia superimposed on prominent COPD. Chest findings are not substantially different from prior day imaging.
[2020-10-03] MEDS ORDERED: HOME MED 1 EA UNK (Multivitamin [Multivitamin] Tablet) PO SCH (09:00)
[2020-10-03] MEDS ORDERED: MULTIVITAMIN TAB PO SCH (09:00)
[2020-10-03] MEDS ORDERED: POLYETHYL GLY 3350 17 GM/DOSE PO SCH (09:00)
[2020-10-03] MEDS ORDERED: DOXAZOSIN 4 MG TAB PO SCH (09:00)
--- NOTE | 2020-10-03 09:09 | P.DS ---
Admission Date: 10/02/20 Discharge Date: 10/03/20 Primary Care Provider: custodial physician Disposition: TRANSFER TO [facility] Discharge Condition: GOOD Reason for Admission: Multifocal pneumonia, hypotension Consultations: Pulmonary-Dr. Graham Procedures: COVID: Negative CT scan: FINDINGS: Heart and mediastinum: Heart size is normal. Moderate multivessel calcified atherosclerosis. Chronically calcified hilar and mediastinal lymph nodes are noted. Thyroid gland: Visualized portions are normal. Lungs: Emphysema is present. There are superimposed tree-in-bud nodularity and groundglass opacities in the posterior right upper, right middle, and in the lower lobes. A few chronic calcified granulomas are noted. Pulmonary nodular opacities measure up to 1.0 cm (right upper lobe on series 201 image 30). This are indeterminate and could be related to the acute infection. Airways: Tracheostomy tube in place. Mucous plugging is noted in the posterior right basal bronchioles. No bronchiectasis. Pleura: No pneumothorax. No significant pleural effusion. Subphrenic structures: Calcified granulomas are noted in the liver and spleen. A PEG tube is in place. Musculoskeletal and soft tissues: Thoracic spondylosis is present. Chronic posterior left eighth rib fracture. IMPRESSION: 1. Emphysema with superimposed multifocal pneumonia with the greatest burden in the right lower lobe. Imaging features can be seen with COVID-19 pneumonia, though are nonspecific and can occur with a variety of infectious and noninfectious processes 2. Mucous plugging is present in the posterior right basal bronchioles. 3. Indeterminate pulmonary nodules are present, interspersed with infiltrate. These measure up to 1.0 cm and could be related to infection. Recommend a non- contrast Chest CT at 3-6 months, then another non-contrast Chest CT at 18-24 months if nodules do not resolve. 4. Moderate atherosclerosis. Follow up CXR: COMPARISON: CT chest October 02, portable chest October 02 TECHNIQUE: Frontal and lateral views of the chest were obtained. FINDINGS: The lungs are extensively fibrotic as a baseline. Flattened diaphragm and increased retrosternal space noted. Patient has a trach tube in place. Increased interstitial opacification at each lung base consistent with superimposed pneumonia. Pattern is not substantially different from comparison imaging. Heart size is normal and central vasculature is within normal limits. No pleural effusion or pneumothorax seen. No acute bony finding noted. No aortic abnormality. IMPRESSION: Lung base pneumonia superimposed on prominent COPD. Chest findings are not substantially different from prior day imaging. Medical Problem List: Dyspnea, increased sputum production related to multifocal pneumonia complicated by history of laryngeal cancer with tracheostomy and COPD Dysphagia status post PEG tube placement CT scan showing indeterminate pulmonary nodules History of cirrhosis GERD Mild protein malnutrition BPH Brief History of Present Illness: 70-year-old male with history of laryngeal cancer status post tracheostomy and PEG tube, hypertension, cirrhosis, COPD presents emergency department for low blood pressure and difficulty breathing. Patient with copious secretions from tracheostomy tube requiring frequent suctioning and blood pressure of 80/40 at the skilled nursing, blood pressure has remained relatively low throughout ED course. Labs significant for white blood cell count 6.6 sodium 135 glucose [address] chest significant for emphysema with superimposed multifocal pneumonia with greatest burden of the right lower lobe, mucus plugging present in the posterior right basal bronchials and intermediate pulmonary nodules present interspersed with infiltrate up to 1 cm could be related to infection. Patient was admitted for further evaluation and treatment. Hospital Course: Patient presented with dyspnea, increased sputum production. Patient found to have multifocal pneumonia with greatest burden in the right lower lobe. Mucus plugging also noted to the posterior right basal bronchials. Indeterminate pulmonary nodules noted on CT scan. Patient responded well to IV antibiotic therapy and steroids. Pulmonology was consulted. Frequent suctioning from the tracheostomy was performed. Patient with history of laryngeal cancer now with tracheostomy in place. Sputum culture obtained. Blood culture so far negative. Repeat chest x-ray shows no significant changes. Patient does not require any oxygen currently. COPD medication was started. At discharge the patient will continue with Levaquin 500 mg daily for 7 days. Sputum cultures will need to be followed up on. At discharge for his COPD, the patient may continue with Trelegy one puff daily, albuterol/Atrovent 1 unit dose every 4 hours as needed for shortness of breath, and acetylcystiene 1 unit dose 3 times a day. Patient also may continue with scopolamine patch every 72 hours. The patient will also continue with prednisone 20 mg 1 pill twice daily for 7 days then 1 pill once daily for 7 days. At discharge will need to make sure that his tracheostomy is suctioned frequently at the skilled nursing. Recommend follow-up with pulmonology in 1 week to follow-up his hospitalization. Recommend to recheck chest x-ray in 2 to 4 weeks to monitor resolution. It is also recommended that the patient have a repeat CT chest in 3 to 6 months to monitor the pulmonary nodules. Patient with history of cirrhosis. This appears stable. This can be followed as an outpatient. Patient likely with GERD. At discharge patient may continue with Pepcid 20 mg twice daily. Patient patient with history of dysphagia. Now with PEG tube. This is likely related to his laryngeal cancer. At discharge patient may continue with his current PEG tube feedsJevity 1.5. 237 mL every 6 hours. Patient is n.p.o. Patient with mild protein malnutrition. Will recommend thiamine 100 mg daily and folic acid 1 mg daily to be started at discharge. Patient may continue with his multivitamin daily. Will recommend dietary to further monitor and adjust his PEG tube feeds to make sure patient gets adequate nutrition. This can be done and followed at the skilled nursing. Patient with BPH. At discharge he will continue with his current medicationCardura 4 mg daily. Vital Signs/Physical Exam: Temp Pulse Resp BP Pulse Ox 98.5 F 93 H 16 103/53 L 97 10/03/20 08:00 10/03/20 08:00 10/03/20 08:00 10/03/20 08:00 10/03/20 08:00 General: Alert, In no apparent distress, Oriented x3, Cooperative HEENT: Atraumatic Neck: Supple Respiratory: Expiratory wheezes (Occasional), Other (Better air movement bilateral.) Cardiovascular: Normal pulses, Regular rate/rhythm Gastrointestinal: Normal bowel sounds, Soft and benign, Non-distended, No tenderness, No masses, No rebound, No guarding Neurological: Normal speech, Normal strength at 5/5 x4 extr, Normal tone, Normal affect Laboratory Data at Discharge: WBC 6.90 K/uL (4.3-10.9) 10/03/20 05:29 Hgb 10.9 g/dL (13.6-17.9) L 10/03/20 05:29 Hct 34.3 % (39.6-49.0) L 10/03/20 05:29 Plt Count 355 K/uL (152-406) 10/03/20 05:29 PT 15.0 SECONDS (9.5-12.5) H 10/02/20 03:45 INR 1.30 10/02/20 03:45 APTT 49.4 SECONDS (24.3-36.9) H 10/02/20 03:45 Sodium 139 mmol/L (136-145) 10/03/20 05:29 Potassium 4.3 mmol/L (3.5-5.1) 10/03/20 05:29 BUN 17 mg/dL (7-18) 10/03/20 05:29 Creatinine 0.59 mg/dL (0.55-1.3) 10/03/20 05:29 Glucose 104 mg/dL (74-106) 10/03/20 05:29 Magnesium 2.1 mg/dL (1.8-2.4) 10/03/20 05:29 Total Bilirubin 0.3 mg/dL (0.2-1.0) 10/03/20 05:29 AST 18 U/L (15-37) 10/03/20 05:29 ALT 23 U/L (12-78) 10/03/20 05:29 Alkaline Phosphatase 62 U/L (45-117) 10/03/20 05:29 Triglycerides 58 mg/dL (<150) 10/03/20 05:29 Cholesterol 163 mg/dL (<200) 10/03/20 05:29 HDL Cholesterol 63 mg/dL (40-60) H 10/03/20 05:29 Cholesterol/HDL Ratio 2.59 10/03/20 05:29 Home Medications: RX: Acetaminophen 650 mg FT BID PRN 10/02/20 RX: Acetylcysteine 3 ml NEB TID 10/02/20 RX: Doxazosin [Cardura*] 4 mg FT DAILY 10/02/20 RX: Famotidine 20 mg FT Q12H 10/02/20 RX: Guaifenesin [Cough Syrup] 10 ml FT Q4HP PRN 10/02/20 RX: Ipratropium/Albuterol Sulfate [Iprat-Albut 0.5-3(2.5) mg/3 ml] 3 ml IH Q4HP PRN 10/02/20 RX: Multivitamin 1 tab FT DAILY 10/02/20 RX: Polyethylene Glycol 3350 [Miralax] 17 gm FT DAILYPRN PRN 10/02/20 RX: Scopolamine [Transderm-Scop] 1 patch TD Q72H 10/02/20 RX: Sennosides/Docusate Sodium [Senna Plus 8.6-50 mg Softgel] 8.6 mg FT Q12HP PRN 10/02/20 RX: Sodium Chloride For Inhalation [Hyper-Kana] 4 ml IH BID 10/02/20 Fluticasone/Umeclidin/Vilanter [Trelegy Ellipta 100-62.5-25] 1 each IH DAILY #1 blst.w.dev 10/03/20 Levofloxacin [Levaquin] 500 mg FT DAILY #7 tablet 10/03/20 RX: Folic Acid 1 mg FT DAILY #90 tablet 10/03/20 RX: Thiamine HCl 100 mg FT DAILY #90 tablet 10/03/20 RX: predniSONE [Prednisone*] 20 mg FT SEECOM #21 tab 10/03/20 New Medications: RX: Folic Acid 1 mg FT DAILY #90 tablet Levofloxacin [Levaquin] 500 mg FT DAILY #7 tablet RX: predniSONE [Prednisone*] 20 mg FT SEECOM #21 tab RX: Thiamine HCl 100 mg FT DAILY #90 tablet Fluticasone/Umeclidin/Vilanter [Trelegy Ellipta 100-62.5-25] 1 each IH DAILY #1 blst.w.dev Physician Discharge Instructions: Patient presented with dyspnea, increased sputum production. Patient found to have multifocal pneumonia with greatest burden in the right lower lobe. Mucus plugging also noted to the posterior right basal bronchials. Indeterminate pulmonary nodules noted on CT scan. Patient responded well to IV antibiotic therapy and steroids. Pulmonology was consulted. Frequent suctioning from the tracheostomy was performed. Patient with history of laryngeal cancer now with tracheostomy in place. Sputum culture obtained. Blood culture so far negative. Repeat chest x-ray shows no significant changes. Patient does not require any oxygen currently. COPD medication was started. At discharge the patient will continue with Levaquin 500 mg daily for 7 days. Sputum cultures will need to be followed up on. At discharge for his COPD, the patient may continue with Trelegy one puff daily, albuterol/Atrovent 1 unit dose every 4 hours as needed for shortness of breath, and acetylcystiene 1 unit dose 3 times a day. Patient also may continue with scopolamine patch every 72 hours. The patient will also continue with prednisone 20 mg 1 pill twice daily for 7 days then 1 pill once daily for 7 days. At discharge will need to make sure that his tracheostomy is suctioned frequently at the skilled nursing. Recommend follow-up with pulmonology in 1 week to follow-up his hospitalization. Recommend to recheck chest x-ray in 2 to 4 weeks to monitor resolution. It is also recommended that the patient have a repeat CT chest in 3 to 6 months to monitor the pulmonary nodules. Patient with history of cirrhosis. This appears stable. This can be followed as an outpatient. Patient likely with GERD. At discharge patient may continue with Pepcid 20 mg twice daily. Patient patient with history of dysphagia. Now with PEG tube. This is likely related to his laryngeal cancer. At discharge patient may continue with his current PEG tube feedsJevity 1.5. 237 mL every 6 hours. Patient is n.p.o. Patient with mild protein malnutrition. Will recommend thiamine 100 mg daily and folic acid 1 mg daily to be started at discharge. Patient may continue with his multivitamin daily. Will recommend dietary to further monitor and adjust his PEG tube feeds to make sure patient gets adequate nutrition. This can be done and followed at the skilled nursing. Patient with BPH. At discharge he will continue with his current medicationCardura 4 mg daily. Diet: PEG feeds Activity: Fall precautions Followup: Unknown,U [Primary Care Provider] - Time spent managing pt's care (in minutes): 55
[2020-10-03] MEDS: NA CHLORIDE 0.9% 1,000 ML IV SCH (09:27)
[2020-10-03] MEDS: ENOXAPARIN 40 MG/0.4 ML SQ SCH (09:28)
[2020-10-03] MEDS ORDERED: DOXAZOSIN 2 MG TAB ONE (09:37)
[2020-10-03 13:27] VITALS: BP 99/64
[2020-10-03 13:53] VITALS: TEMP 98
== END 2020-10-03 14:48 | DRG 194 ==
LOC: ER 03:08 → ERHOLD 05:38 → 2ND 09:46 → OBSVTOIN 11:43
PROVIDERS: ADMIT Family Medicine; ATTEND Family Medicine
DX: J18.9 Pneumonia, unspecified organism (principal); J44.0 Chronic obstructive pulmonary disease with (acute) lower respiratory infection; E44.1 Mild protein-calorie malnutrition; Z68.1 Body mass index [BMI] 19.9 or less, adult; K21.9 Gastro-esophageal reflux disease without esophagitis; I10 Essential (primary) hypertension; N40.0 Benign prostatic hyperplasia without lower urinary tract symptoms; Z79.899 Other long term (current) drug therapy; Z93.0 Tracheostomy status; Z87.891 Personal history of nicotine dependence; Z79.52 Long term (current) use of systemic steroids; Z85.21 Personal history of malignant neoplasm of larynx; Z20.822 Contact with and (suspected) exposure to COVID-19
CPT/HCPCS: 36415; 71045; 71046; 71250; 80048; 80053; 80061; 80076; 82607; 82728; 83036; 83540; 83735; 84145; 84439; 84443; 84466; 85025; 85610; 85730; 87040; 87070; 87077; 87186; 87205; 94640; 96365; 96367; 99284; G0378; J1650; J2920; J7030; J7605; U0003

== ENCOUNTER 2020-10-24 11:12 | Inpatient (IN) | payer OTHER, SELFPAY ==
--- OUTSIDE RECORDS SUMMARY | 2020-10-24 11:14 | XMS REPORT | Continuity of Care Document ---
:1950 Author Organization [facility] t Address [address] [place] [address] Care Team Providers Name Role Phone MD MIK Primary Care Physician Roger ANDREWS Attending Clinician Unavailable Doctor Unassigned, Name Attending Clinician Unavailable Torrie BLANCO Attending Clinician Urvashi SIERRA Attending Clinician Jabari SIERRA, K Attending Clinician Tavo SIERRA, C Attending Clinician Nargis Mix MD Attending Clinician Danyell SIERRA Attending Clinician Urvashi SIERRA Admitting Clinician Problems Condition Condition Condition Status Onset Resolution Last Treating Co mments Source Name Details Category Date Date Treatment Clinician Date Contusion Problem Active [facility] Patient [facility] Allergies, Adverse Reactions, Alerts This patient has no known allergies or adverse reactions. Social History Social Habit Start Date Stop Date Quantity Comments Source Sex Assigned At [address] [facility] - 00:00:00 00:00:00 Patients [facility] Medications This patient has no known medications. Vital Signs Vital Name Observation Time Observation Value Comments Source Oxygen saturation by 2020-07-12 22:54:00 100 /min [facility] - Pulse oximetry Patients [facility] Weight 2020-07-12 20:29:00 172 [lb_av] [facility] - Patients [facility] BMI (Body Mass 2020-07-12 20:29:00 26.2 kg/m2 [facility] - Index) Patients [facility] Procedures Procedure Date / Time Performed Performing Clinician Kallie mcmillan Computed tomography of 2020-07-12 00:00:00 [facility] - brain without Patients Medical radiopaque contrast Center Plan of Care Planned Activity Planned Date Details Comments Source Instructions Concussion/Head Injury [facility] - - Adult Patients [facility] Encounters Start End Encounter Admission Attending Care Care Encounter Source Date/Time Date/Time Type Type Clinicians Facility Department ID 2020-07-12 2020-07-12 Departed 1 DARRYL [facility] [id number] [facility] 20:30:00 23:58:00 Emergency AARON Patients [address] - Room [facility] 2020-05-23 2020-05-23 Orders Doctor GURWINDER [id number] 00:00:00 00:00:00 Only Unassigned, KAMALJIT [id number] [facility] [id number] [id number] 2020-05-09 2020-05-09 Transition Tito Brownlee [id number] 00:00:00 00:00:00 of Care Yamileth Beltre [id number] [place] [id number] [id number] 2020-04-15 2020-05-08 [facility] Suhail Landin 1.2.840. 114 [id number] 17:20:00 18:01:00 Encounter Jabari Sharrihillary Hernandezy [id number] .10 [facility] 4.2.7[facility]2.68 6 Sirena Mix [id number] 2020-04-21 2020-04-21 Multidisci Darinel Child [id number] 00:00:00 00:00:00 plinary KAMALJIT [id number] [facility] [id number] [id number] Results Test Description Test Time Test Comments Results Result Sourc e Comments CT BRAIN WO 2020-07-12 21:38:00 [facility] : 1950 Sex: M [facility] [address] [place] [address] Patient Name: TROY FITZGERALD MR #: [id number] : 1950 Age/Sex: 70/M Req #: [id number] Adm Physician: Ordered by: AARON ANDREWS MD Report #: [id number] Location: Room/Bed: Procedure: [id number] CT/CT BRAIN WO Exam Date: 07/12/20 Exam [...]
--- NOTE | 2020-10-24 11:58 | EDPHYS ---
Physician Documentation [facility] Name: Abilio Torrez Jr Age: 70 yrs Sex: Male : 1950 Arrival Date: 10/24/2020 Time: 11:12 Bed 14 Private MD: ED Physician Ajith Jerome HPI: 10/24 11:28 This 70 yrs old Black Male presents to ER via EMS with complaints of Shortness Of diane Breath. 11:28 The patient has shortness of breath at rest. Onset: The symptoms/episode began/occurred diane 2 day(s) ago. Duration: The symptoms are continuous, and are steadily getting worse. The patient's shortness of breath is aggravated by coughing, supine position, is alleviated by elevating head, nebulizer treatment, rest, sitting up, application of supplemental oxygen. Associated signs and symptoms: Pertinent positives: productive cough. Severity of symptoms: At their worst the symptoms were moderate in the emergency department the symptoms are worse. The patient has experienced similar episodes in the past, multiple times. Historical: - Allergies: : No Known Allergies; bp - Home Meds: : acetaminophen 325 mg Oral tab 2 tabs every 8 hours as needed [Active]; acetylcysteine bp 200 mg/mL (20 %) miscellaneous soln 3 mL 3 times per day [Active]; doxazosin 4 mg Oral tab 1 tab once daily [Active]; famotidine 20 mg Oral tab 1 tab every 12 hours [Active]; senna 8.6 mg Oral tab 1 tabs twice a day [Active]; DuoNeb 0.5 mg-3 mg(2.5 mg base)/3 mL Inhl nebu 3 mL every 4 hours as needed [Active]; scopolamine transdermal 1 patch every 72 hours [Active]; Miralax 17 gram/dose Oral powd once daily [Active]; - PMHx: : Laryngeal CA; squamous cell carcinoma; Hypertension; COPD; Cirrhosis; BPH; bp - Immunization history:: Adult Immunizations up to date. - Social history:: Smoking status: unknown. - Family history:: not pertinent. ROS: 11:28 Constitutional: Negative for fever, chills, and weight loss, Eyes: Negative for injury, diane pain, redness, and discharge, ENT: Negative for injury, pain, and discharge, Neck: Negative for injury, pain, and swelling, Cardiovascular: Negative for chest pain, palpitations, and edema, Abdomen/GI: Negative for abdominal pain, nausea, vomiting, diarrhea, and constipation, Back: Negative for injury and pain, : Negative for injury, bleeding, discharge, and swelling, MS/Extremity: Negative for injury and deformity, Skin: Negative for injury, rash, and discoloration, Neuro: Negative for headache, weakness, numbness, tingling, and seizure, Psych: Negative for depression, anxiety, suicide ideation, homicidal ideation, and hallucinations, Allergy/Immunology: Negative for hives, rash, and allergies, Endocrine: Negative for neck swelling, polydipsia, polyuria, polyphagia, and marked weight changes. 11:28 Respiratory: Positive for cough, shortness of breath, at rest. Exam: 11:28 Constitutional: This is a well developed, well nourished patient who is awake, alert, diane and in no acute distress. Head/Face: Normocephalic, atraumatic. Eyes: Pupils equal round and reactive to light, extra-ocular motions intact. Lids and lashes normal. Conjunctiva and sclera are non-icteric and not injected. Cornea within normal limits. Periorbital areas with no swelling, redness, or edema. Neck: Trachea midline, no thyromegaly or masses palpated, and no cervical lymphadenopathy. Supple, full range of motion without nuchal rigidity, or vertebral point tenderness. No Meningismus. Chest/axilla: Normal chest wall appearance and motion. Nontender with no deformity. No lesions are appreciated. Cardiovascular: Regular rate and rhythm with a normal S1 and S2. No gallops, murmurs, or rubs. Normal PMI, no JVD. No pulse deficits. Abdomen/GI: Soft, non-tender, with normal bowel sounds. No distension or tympany. No guarding or rebound. No evidence of tenderness throughout. Back: No spinal tenderness. No costovertebral tenderness. Full range of motion. Skin: Warm, dry with normal turgor. Normal color with no rashes, no lesions, and no evidence of cellulitis. MS/ Extremity: Pulses equal, no cyanosis. Neurovascular intact. Full, normal range of motion. Neuro: Awake and alert, GCS 15, oriented to person, place, time, and situation. Cranial nerves II-XII grossly intact. Motor strength 5/5 in all extremities. Sensory grossly intact. Cerebellar exam normal. Normal gait. Psych: Awake, alert, with orientation to person, place and time. Behavior, mood, and affect are within normal limits. 11:28 ENT: Posterior pharynx: Airway: normal, no evidence of obstruction, trach with secretions, heavy. 12:47 ECG was reviewed by the Attending Physician. [facility] Vital Signs: 11:13 BP 98 / 60; Pulse 100; Resp 24; Temp 98.9; Pulse Ox 89% on 3 lpm NC; bp MDM: 11:19 Patient medically screened. diane 11:31 Differential diagnosis: Anemia asthma, Bronchitis CHF exacerbation, Chronic Obstructive diane Pulmonary Disease pneumonia. Antibiotic administration: zosyn and vancomycin. The patient's Wells Deep Vein Thrombosis Score was calculated as follows: Imm/Surg in last 4 wks (1.5 Pts) Total Score: 0-2 Pts- Low Risk. The patient's pulmonary embolism risk score was calculated as follows: patient has experienced immobilization or surgery in the last four weeks (1.5 Pts) Total Score: 0-2 points. This patient was found to be at low risk for a pulmonary embolism by using the Well's assessment criteria. Immunization status: Pneumococcal vaccine: Influenza vaccine: Data reviewed: vital signs, nurses notes, lab test result(s), EKG, radiologic studies, plain films. Data interpreted: case monitor: rate is 100 beats/min, rhythm is regular, Pulse oximetry: on 50% oxygen by face mask, is 89 %. Test interpretation: by ED physician or midlevel provider: ECG, plain radiologic studies. Counseling: I had a detailed discussion with the patient and/or guardian regarding: the historical points, exam findings, and any diagnostic results supporting the discharge/admit diagnosis, lab results, radiology results, the need for further work-up and treatment in the hospital. 10/24 11:28 Order name: Basic Metabolic Panel; Complete Time: 13:58 [facility] 10/24 11:28 Order name: CBC with Diff; Complete Time: 13:32 [facility] 10/24 11:28 Order name: LFT's; Complete Time: 13:58 [facility] 10/24 11:28 Order name: Magnesium; Complete Time: 13:58 [facility] 10/24 11:28 Order name: NT PRO-BNP; Complete Time: 13:58 [facility] 10/24 11:28 Order name: PT-INR; Complete Time: 13:58 [facility] 10/24 11:28 Order name: Troponin (emerg Dept Use Only); Complete Time: 13:58 10/24 11:28 Order name: Blood Culture Adult (2) 10/24 11:28 Order name: Sputum Culture [facility] 10/24 11:28 Order name: Lactate; Complete Time: 13:58 [facility] 10/24 13:00 Order name: SARS-COV-2 RT PCR; Complete Time: 13:07 EDKS 10/24 13:01 Order name: Comprehensive Metabolic Panel EDKS 10/24 13:01 Order name: Comprehensive Metabolic Panel EDKS 10/24 11:28 Order name: XRAY Chest (1 view); Complete Time: 12:35 [facility] 10/24 13:01 Order name: Lipid Profile [facility] 10/24 13:01 Order name: Lipid Profile [facility] 10/24 13:01 Order name: Magnesium EDMS 10/24 13:01 Order name: Magnesium EDMS 10/24 13:01 Order name: NT PRO-BNP EDKS 10/24 13:01 Order name: NT PRO-BNP EDKS 10/24 13:01 Order name: Protime (+INR) EDMS 10/24 13:01 Order name: Protime (+INR) EDMS 10/24 13:01 Order name: PTT, Activated Partial Thromb EDMS 10/24 13:01 Order name: PTT, Activated Partial Thromb EDMS 10/24 13:02 Order name: CBC with Automated Diff EDMS 10/24 13:02 Order name: CBC with Automated Diff EDMS 10/24 11:28 Order name: EKG; Complete Time: 11:29 10/24 11:28 Order name: Cardiac monitoring; Complete Time: 11:50 10/24 11:28 Order name: EKG - Nurse/Tech; Complete Time: 12:45 10/24 11:28 Order name: IV Saline Lock; Complete Time: 12:45 10/24 11:28 Order name: Labs collected and sent; Complete Time: 12:45 10/24 11:28 Order name: O2 Per Protocol; Complete Time: 11:50 10/24 11:28 Order name: O2 Sat Monitoring; Complete Time: 11:50 [facility] 10/24 13:01 Order name: Heart Healthy EDMS EC:47 Rate is 112 beats/min. Rhythm is regular. QRS [place] is Normal. CA interval is normal. diane QRS interval is normal. QT interval is normal. No Q waves. T waves are Normal. No ST changes noted. Clinical impression: Sinus tachycardia and No evidence of ischemia. Interpreted by me. Reviewed by me. Administered Medications: 12:00 Drug: NS 0.9% 1000 ml Route: IV; Rate: 125 ml/hr; Site: right forearm; bp 12:00 Drug: Zosyn 3.375 grams Route: IVPB; Infused Over: 60 mins; Site: right forearm; bp 13:19 Follow up: IV Status: Completed infusion bp 12:00 Drug: Xopenex (levalbuterol) 3.75 mg Route: Inhalation; bp 12:00 Drug: AtroVENT (ipratropium) Aerosol 0.5 mg Route: Inhalation; bp 12:00 Drug: Pepcid (famotidine) 20 mg Route: IVP; Site: right forearm; bp 13:19 Follow up: Response: No adverse reaction bp 13:00 Drug: vancoMYCIN 1 grams Route: IVPB; Infused Over: 2 hrs; Site: right forearm; bp 14:02 Drug: NS 0.9% 1000 ml Route: IV; Rate: 1 bolus; Site: right forearm; bp Disposition: 10/24/20 11:57 Hospitalization ordered by Josephine Ceja for Inpatient Admission. Preliminary diagnosis are Dyspnea, Tracheostomy status, Tracheostomy complications, Hypoxemia, Pneumonia, unspecified organism - aspiration, Chronic obstructive pulmonary disease, unspecified. - Bed requested for Telemetry/MedSurg (Inpatient). - Status is Inpatient Admission. bp - Condition is Fair. - Problem is new. - Symptoms have worsened. Signatures: Dispatcher [employer] EDKS Violette Sommer RN RN Ajith Conti MD MD cha Peltier, Brian, RN RN bp Corrections: (The following items were deleted from the chart) 12:08 11:29 CORONAVIRUS+.LAB.BRZ ordered. [facility] 14:14 11:57 Hospitalization Ordered by Josephine Ceja MD for Inpatient Admission. Preliminary dw diagnosis is Dyspnea; Tracheostomy status; Tracheostomy complications; Hypoxemia; Pneumonia, unspecified organism - aspiration; Chronic obstructive pulmonary disease, unspecified. Bed requested for Telemetry/MedSurg (Inpatient). Status is Inpatient Admission. Condition is Fair. Problem is new. Symptoms have worsened. diane 15:08 14:14 10/24/2020 11:57 Hospitalization Ordered by Josephine Ceja MD for Inpatient bp Admission. Preliminary diagnosis is Dyspnea; Tracheostomy status; Tracheostomy complications; Hypoxemia; Pneumonia, unspecified organism - aspiration; Chronic obstructive pulmonary disease, unspecified. Bed requested for Telemetry/MedSurg (Inpatient). Status is Inpatient Admission. Condition is Fair. Problem is new. Symptoms have worsened. dw
--- NOTE | 2020-10-24 11:58 | ER ---
Nurse's Notes [facility] Name: Abilio Torrez Jr Age: 70 yrs Sex: Male : 1950 Arrival Date: 10/24/2020 Time: 11:12 Bed 14 Private MD: Diagnosis: Dyspnea;Tracheostomy status;Tracheostomy complications;Hypoxemia;Pneumonia, unspecified organism-aspiration;Chronic obstructive pulmonary disease, unspecified Presentation: 10/24 11:13 Chief complaint: EMS states: [facility] STATES SECRETIONS ARE THICKER THAN NORMAL. bp Coronavirus screen: At this time, the client does not indicate any symptoms associated with coronavirus-19. Ebola Screen: No symptoms or risks identified at this time. Initial Sepsis Screen: Does the patient meet any 2 criteria? HR > 90 bpm. No. Patient's initial sepsis screen is negative. Does the patient have a suspected source of infection? Yes: Productive cough/pneumonia. Risk Assessment: Do you want to hurt yourself or someone else? Patient reports no desire to harm self or others. Onset of symptoms is unknown. 11:13 Method Of Arrival: EMS: [facility] bp 11:13 Acuity: STEFANI 3 bp Triage Assessment: :23 General: Appears in no apparent distress. comfortable, slender, Behavior is bp cooperative, appropriate for age, anxious, drowsy. Pain:. EENT: Tympanic membrane TRACH WITH TRACH COLLAR TO 3L O2. Neuro: Level of Consciousness is awake, obeys commands, Oriented to Appropriate for age. Cardiovascular: Rhythm is sinus rhythm. Respiratory: Breath sounds are diminished in right middle lobe and right lower lobe. GI: No signs and/or symptoms were reported involving the gastrointestinal system. : No signs and/or symptoms were reported regarding the genitourinary system. Derm: No deficits noted. Musculoskeletal: No deficits noted. Historical: - Allergies: : No Known Allergies; bp - Home Meds: : acetaminophen 325 mg Oral tab 2 tabs every 8 hours as needed [Active]; acetylcysteine bp 200 mg/mL (20 %) miscellaneous soln 3 mL 3 times per day [Active]; doxazosin 4 mg Oral tab 1 tab once daily [Active]; famotidine 20 mg Oral tab 1 tab every 12 hours [Active]; senna 8.6 mg Oral tab 1 tabs twice a day [Active]; DuoNeb 0.5 mg-3 mg(2.5 mg base)/3 mL Inhl nebu 3 mL every 4 hours as needed [Active]; scopolamine transdermal 1 patch every 72 hours [Active]; Miralax 17 gram/dose Oral powd once daily [Active]; - PMHx: 11:23 Laryngeal CA; squamous cell carcinoma; Hypertension; COPD; Cirrhosis; BPH; bp - Immunization history:: Adult Immunizations up to date. - Social history:: Smoking status: unknown. - Family history:: not pertinent. Screenin:23 Abuse screen: Denies threats or abuse. Denies injuries from another. Nutritional bp screening: No deficits noted. Tuberculosis screening: No symptoms or risk factors identified. Fall Risk None identified. Assessment: 11:23 General: SEE TRIAGE NOTE. bp Vital Signs: 11:13 BP 98 / 60; Pulse 100; Resp 24; Temp 98.9; Pulse Ox 89% on 3 lpm NC; bp ED Course: 11:12 Patient arrived in ED. ds1 11:13 Pete Nagel, FRANCIS is Primary Nurse. bp 11:14 Triage completed. bp 11:19 Ajith Jerome MD is Attending Physician. diane 11:23 Patient has correct armband on for positive identification. Bed in low position. Call bp light in reach. Side rails up X2. 11:36 Arm band placed on. Antipyretics given from triage as ordered by an ER provider. bp 11:55 Josephine Ceja MD is Hospitalizing Provider. diane 12:03 XRAY Chest (1 view) In Process Unspecified. EDMS 14:39 No provider procedures requiring assistance completed. Patient admitted, IV remains in bp place. Administered Medications: 12:00 Drug: NS 0.9% 1000 ml Route: IV; Rate: 125 ml/hr; Site: right forearm; bp 12:00 Drug: Zosyn 3.375 grams Route: IVPB; Infused Over: 60 mins; Site: right forearm; bp 13:19 Follow up: IV Status: Completed infusion bp 12:00 Drug: Xopenex (levalbuterol) 3.75 mg Route: Inhalation; bp 12:00 Drug: AtroVENT (ipratropium) Aerosol 0.5 mg Route: Inhalation; bp 12:00 Drug: Pepcid (famotidine) 20 mg Route: IVP; Site: right forearm; bp 13:19 Follow up: Response: No adverse reaction bp 13:00 Drug: vancoMYCIN 1 grams Route: IVPB; Infused Over: 2 hrs; Site: right forearm; bp 14:02 Drug: NS 0.9% 1000 ml Route: IV; Rate: 1 bolus; Site: right forearm; bp Outcome: 11:57 Decision to Hospitalize by Provider. diane 14:40 Admitted to Tele accompanied by tech, via wheelchair, with chart, Report called to bp ROSAMARIA BLANCO 14:40 Condition: stable 14:40 Instructed on the need for admit. 15:08 Patient left the ED. bp Signatures: Dispatcher [employer] Ajith Bobo MD MD cha Sanford, Demi ds1 Pete Nagel, RN RN bp
[2020-10-24] MEDS ORDERED: ALBUTEROL 2.5 MG/3 ML NEB SOL ONE ×2 (12:18→15:10)
[2020-10-24] MEDS ORDERED: LEVALBUTEROL 1.25 MG/3 ML NEB ONE (12:18)
[2020-10-24] MEDS ORDERED: NA CHLORIDE 0.9% 1,000 ML ONE (12:19)
[2020-10-24] MEDS ORDERED: FAMOTIDINE 20 MG/2 ML VIAL IV ONE (12:19)
[2020-10-24] MEDS ORDERED: PIPER/TAZO/NS 3.375gm 3.375 GM/100 ML BAG ONE (12:19)
[2020-10-24] MEDS ORDERED: IPRATROPIUM BROM 0.5MG/2.5ML ONE ×2 (12:19→15:10)
--- NOTE | 2020-10-24 12:22 | RAD REPORT ---
EXAM DESCRIPTION: Ramon Single View10/24/2020 12:03 pm CLINICAL HISTORY: Cough COMPARISON: October 03, 2020 FINDINGS: Worsening in right basilar lung opacities. Additional bilateral interstitial opacities probably are mostly chronic. The heart is normal size. Tr acheostomy tube noted. Heart is normal size IMPRESSION: Worsening in right basilar lung opacities likely pneumonia
[2020-10-24] MEDS ORDERED: ACETAMINOPHEN 500 MG TAB PO PRN (12:58)
[2020-10-24] MEDS ORDERED: ONDANSETRON 4 MG/2 ML VIAL IV PRN (12:58)
[2020-10-24] MEDS ORDERED: VANCOMYCIN/NS 1 gm 1 GM/250 ML BAG IVPB ONE (13:00)
[2020-10-24] MEDS: NA CHLORIDE 0.9% 1,000 ML IV SCH (13:00)
[2020-10-24 13:21] LABS: Absolute Lymphocytes (CBC) 1.6 K/uL (0.7-4.9); Basophils % 0.5 % (0-1.3); Hematocrit 40.1 % (39.6-49.0); Lymphocytes % 16.8 % (15.3-44.8); MPV 8.7 fL (7.6-11.3); RBC Red Blood Cell Count 4.95 M/uL (4.33-5.43)
[2020-10-24 13:31] LABS: Protime INR 1.25
[2020-10-24 13:40] LABS: ALT/SGPT 41 U/L (12-78); AST/SGOT 21 U/L (15-37); Albumin 2.7 g/dL (3.4-5.0); Alkaline Phosphatase 71 U/L (45-117); BUN Blood Urea Nitrogen 18 mg/dL (7-18); Bicarbonate 30 mmol/L (21-32); Bilirubin Direct 0.2 mg/dL (0-0.2); Bilirubin Total 0.5 mg/dL (0.2-1.0); Glucose Level 107 mg/dL (74-106); Magnesium 2.2 mg/dL (1.8-2.4); NT PRO-BNP 216 pg/mL (<125); Potassium 3.7 mmol/L (3.5-5.1); Protein, Total 7.7 g/dL (6.4-8.2); Sodium Level 137 mmol/L (136-145); Troponin (Emerg Dept Use Only) < 0.02 ng/mL (0.0-0.045)
[2020-10-24] MEDS ORDERED: AZITHROMYCIN IV 500 MG in NA CHLORIDE 0.9% 250 ML IVPB SCH ×4 (14:00)
[2020-10-24] MEDS: IPRATROPIUM BROM 0.5MG/2.5ML NEB SCH ×2 (14:50→21:35)
[2020-10-24] MEDS: ALBUTEROL 2.5 MG/3 ML NEB SOL NEB SCH ×2 (14:50→21:35)
[2020-10-24] MEDS ORDERED: CEFTRIAXONE/SWI 1gm 1 GM/10 ML SYR IVP SCH ×2 (15:00→21:00)
--- NOTE | 2020-10-24 15:11 | P.HP ---
Certification for Inpatient Patient admitted to: Inpatient With expected LOS: >2 Midnights Patient will require the following post-hospital care: None Practitioner: I am a practitioner with admitting privileges, knowledge of patient current condition, hospital course, and medical plan of care. Services: Services provided to patient in accordance with Admission requirements found in Title 42 Section 412.3 of the Code of Federal Regulations Patient History Date of Service: 10/24/20 Reason for admission: Nosocomial acquired pneumonia History of Present Illness: Pt is a 70-year-old gentleman who [facility] at the [facility]. He came into the emergency room because he has been coughing & congestion. Patient lives at a [facility]. He has laryngeal cancer and status post tracheostomy. Patient has continued to lose some weight. He has recently been admitted for similar issues about a week and half ago. She was start on IV antibiotic therapy. Cl inically he is not improving. He came into the emergency room for further evaluation. Allergies No Known Allergies Allergy (Verified 10/02/20 11:29) Home Medications: Acetaminophen 650 mg FT BID PRN 10/02/20 Acetylcysteine 3 ml NEB TID 10/02/20 Doxazosin [Cardura*] 4 mg FT DAILY 10/02/20 Famotidine 20 mg FT Q12H 10/02/20 Guaifenesin [Cough Syrup] 10 ml FT Q4HP PRN 10/02/20 Ipratropium/Albuterol Sulfate [Iprat-Albut 0.5-3(2.5) mg/3 ml] 3 ml IH Q4HP PRN 10/02/20 Multivitamin 1 tab FT DAILY 10/02/20 Polyethylene Glycol 3350 [Miralax] 17 gm FT DAILYPRN PRN 10/02/20 Scopolamine [Transderm-Scop] 1 patch TD Q72H 10/02/20 Sennosides/Docusate Sodium [Senna Plus 8.6-50 mg Softgel] 8.6 mg FT Q12HP PRN 10/02/20 Sodium Chloride For Inhalation [Hyper-Kana] 4 ml IH BID 10/02/20 Fluticasone/Umeclidin/Vilanter [Trelegy Ellipta 100-62.5-25] 1 each IH DAILY #1 blst.w.dev 10/03/20 Folic Acid 1 mg FT DAILY #90 tablet 10/03/20 Levofloxacin [Levaquin] 500 mg FT DAILY #7 tablet 10/03/20 Thiamine HCl 100 mg FT DAILY #90 tablet 10/03/20 predniSONE [Prednisone*] 20 mg FT SEECOM #21 tab 10/03/20 - Past Medical/Surgical History Has patient received pneumonia vaccine in the past: Yes Diabetic: No -: Laryngeal cancer status post tracheostomy/PEG tube -: Hypertension -: Cirrhosis of the liver -: COPD -: Tracheostomy -: PEG tube Psychosocial/ Personal History: Patient currently resides in [facility] - Family History Father Notes: Extremely difficult understand patient, unable to obtain at this time. - Social History Alcohol use: No CD- Drugs: No Caffeine use: No Review of Systems 10-point ROS is otherwise unremarkable Physical Examination - Vital Signs Temperature: 101 F Blood Pressure: 100/60 Pulse: 80 Respirations: 22 Pulse Ox (%): 90 - Physical Exam General: Alert, In no apparent distress, Oriented x3 HEENT: Atraumatic, Normocephalic Neck: Other (Trach in place with secretions) Respiratory: Diminished, Expiratory wheezes Cardiovascular: Regular rate/rhythm, Normal S1 S2, No murmurs Gastrointestinal: Normal bowel sounds, Soft and benign, Non-distended Musculoskeletal: No clubbing, No swelling Neurological: Normal gait, Sensation intact, Cranial nerves 3-12 intact, Abnormal strength Lymphatics: No axilla or inguinal lymphadenopathy - Studies Laboratory Data (last 24 hrs) 10/24/20 12:15: PT 14.4 H, INR 1.25 10/24/20 12:15: WBC 9.80, Hgb 12.6 L, Hct 40.1, Plt Count 363 10/24/20 12:15: Sodium 137, Potassium 3.7, BUN 18, Creatinine 0.62, Glucose 107 H, Magnesium 2.2, Total Bilirubin 0.5, AST 21, ALT 41, Alkaline Phosphatase 71 Assessment & Plan - Problems (Diagnosis) (1) Nosocomial pneumonia Current Visit: Yes Status: Acute (2) Laryngeal cancer Current Visit: Yes Status: Acute (3) HTN (hypertension) Current Visit: Yes Status: Acute (4) Cirrhosis of liver Current Visit: Yes Status: Acute - Plan 1. Continue with IV antibiotics 2. Awaiting sputum and blood culture 3. Repeat chest x-ray 4. Will proceed with CT scan of the chest if pneumonia 5. Trach collar 6. Continue with nebs as needed 7. O2 per protocol 8. Continue with gentle hydration 9. Repeat labs including CBC and renal function in a.m. 10. GI and DVT prophylaxis Discharge Plan: Home Plan to discharge in: Greater than 2 days - Advance Directives Does patient have a Living Will: No Does patient have a Durable POA for Healthcare: No - Code Status/Comfort Care Code Status Assessed: Yes Code Status: Full Code Critical Care: No Time Spent Managing PTS Care (In Minutes): 45
[2020-10-24] MEDS: Levofloxacin500mg IV 500 MG/100 ML BAG IV SCH (17:58)
[2020-10-24] MEDS: PIPER/TAZO/NS 3.375gm 3.375 GM/100 ML BAG IVPB SCH (17:58)
[2020-10-24] MEDS: ENOXAPARIN 40 MG/0.4 ML SQ SCH (17:58)
[2020-10-24] MEDS ORDERED: PNEUMOCOCCAL VACCINE 0.5 ML IMVAC ONE (20:00)
[2020-10-24] MEDS ORDERED: POTASSIUM CL SA 10 MEQ TAB PO ONE (21:00)
[2020-10-24] MEDS: SMZ./TMP. 800/160 MG TABLET PO SCH (21:06)
[2020-10-25] MEDS: PIPER/TAZO/NS 3.375gm 3.375 GM/100 ML BAG IVPB SCH ×3 (01:07→17:03)
[2020-10-25] MEDS: IPRATROPIUM BROM 0.5MG/2.5ML NEB SCH ×4 (02:03→20:00)
[2020-10-25] MEDS: ALBUTEROL 2.5 MG/3 ML NEB SOL NEB SCH ×4 (02:03→20:00)
[2020-10-25 06:00] LABS: Absolute Lymphocytes (CBC) 0.9 K/uL (0.7-4.9); Basophils % 0.2 % (0-1.3); Hematocrit 36.6 % (39.6-49.0); Lymphocytes % 5.8 % (15.3-44.8); MPV 8.4 fL (7.6-11.3); RBC Red Blood Cell Count 4.58 M/uL (4.33-5.43)
[2020-10-25 06:10] LABS: Protime INR 1.61
[2020-10-25 06:18] LABS: ALT/SGPT 31 U/L (12-78); AST/SGOT 14 U/L (15-37); Albumin 2.5 g/dL (3.4-5.0); Alkaline Phosphatase 70 U/L (45-117); BUN Blood Urea Nitrogen 14 mg/dL (7-18); Bicarbonate 30 mmol/L (21-32); Bilirubin Total 0.7 mg/dL (0.2-1.0); Glucose Level 96 mg/dL (74-106); HDL Cholesterol 70 mg/dL (40-60); LDL Cholesterol, Calculated 82 (<130); NT PRO-BNP 515 pg/mL (<125); Potassium 4.6 mmol/L (3.5-5.1); Protein, Total 7.1 g/dL (6.4-8.2); Sodium Level 140 mmol/L (136-145)
--- NOTE | 2020-10-25 07:58 | EKG ---
Test Date: 2020-10-24 Test Time: 12:36:12 Educational Adviser: BP MEASUREMENT RESULTS: Intervals: Rate: 112 TN: QRSD: 100 QT: 378 QTc: 515 [place]: P: TN: QRS: -70 T: 67 INTERPRETIVE STATEMENTS: Accelerated Junctional rhythm with occasional premature ventricular complexes Left axis deviation Abnormal ECG Compared to ECG 08/28/2014 13:50:20 Accelerated junctional rhythm now present Ventricular premature complex(es) now present Left-axis deviation now present Sinus rhythm no longer present Left anterior fascicular block no longer present Electronically Signed On 10-25-20 07:56:41 CDT by Romel Benitez
[2020-10-25] MEDS: NA CHLORIDE 0.9% 1,000 ML IV SCH (09:00)
[2020-10-25 09:28] LABS: Blood Morphology Comment NOT SEEN (NOT SEEN); Platelet Estimate ADEQ
[2020-10-25] MEDS: ENOXAPARIN 40 MG/0.4 ML SQ SCH (10:00)
[2020-10-25] MEDS: SMZ./TMP. 800/160 MG TABLET PO SCH ×2 (10:00→21:03)
[2020-10-25] MEDS ORDERED: HYDROCORTISONE SUC 100 MG INJ IV ONE (14:05)
--- NOTE | 2020-10-25 14:06 | P.PN ---
Subjective Date of Service: 10/25/20 Patient clinically doing well with no new complaints. Symptoms are improved. Still with a lot of congestion. Review of Systems 10-point ROS is otherwise unremarkable Physical Examination - Vital Signs Temperature: 97.0 F Blood Pressure: 105/58 Pulse: 81 Respirations: 16 Pulse Ox (%): 99 - Physical Exam General: Alert, In no apparent distress HEENT: Atraumatic, PERRLA, EOMI Neck: Supple, JVD not distended Respiratory: Clear to auscultation bilaterally, Normal air movement Cardiovascular: Regular rate/rhythm, Normal S1 S2 Gastrointestinal: Normal bowel sounds, No tenderness Musculoskeletal: No tenderness Integumentary: No rashes Neurological: Normal speech, Normal tone, Normal affect Lymphatics: No axilla or inguinal lymphadenopathy - Studies Medications List Reviewed: Yes Assessment & Plan - Problems (Diagnosis) (1) Nosocomial pneumonia Current Visit: Yes Status: Acute (2) Laryngeal cancer Current Visit: Yes Status: Acute (3) HTN (hypertension) Current Visit: Yes Status: Acute (4) Cirrhosis of liver Current Visit: Yes Status: Acute - Plan 1. Continue with IV antibiotics 2. Awaiting sputum and blood culture 3. Repeat chest x-ray 4. Will proceed with CT scan of the chest if pneumonia 5. Trach collar 6. Continue with nebs as needed 7. O2 per protocol 8. Continue with gentle hydration 9. Repeat labs including CBC and renal function in a.m. 10. GI and DVT prophylaxis - Advance Directives Does patient have a Living Will: No Does patient have a Durable POA for Healthcare: No - Code Status/Comfort Care Code Status: Full Code
[2020-10-25] MEDS ORDERED: SCOPOLAMINE HYDROBROMIDE PATCH TD ONE (15:00)
[2020-10-25 16:23] VITALS: BMI 14.2
[2020-10-25] MEDS: Levofloxacin500mg IV 500 MG/100 ML BAG IV SCH (17:02)
[2020-10-26] MEDS: PIPER/TAZO/NS 3.375gm 3.375 GM/100 ML BAG IVPB SCH ×3 (00:45→19:43)
[2020-10-26] MEDS: IPRATROPIUM BROM 0.5MG/2.5ML NEB SCH ×4 (01:45→20:18)
[2020-10-26] MEDS: ALBUTEROL 2.5 MG/3 ML NEB SOL NEB SCH ×4 (01:45→20:18)
[2020-10-26] MEDS: NA CHLORIDE 0.9% 1,000 ML IV SCH (04:59)
[2020-10-26 06:16] LABS: Absolute Lymphocytes (CBC) 1.2 K/uL (0.7-4.9); Basophils % 0.1 % (0-1.3); Hematocrit 35.6 % (39.6-49.0); Lymphocytes % 10.9 % (15.3-44.8); MPV 8.4 fL (7.6-11.3); RBC Red Blood Cell Count 4.42 M/uL (4.33-5.43)
[2020-10-26 06:21] LABS: BUN Blood Urea Nitrogen 12 mg/dL (7-18); Bicarbonate 28 mmol/L (21-32); Glucose Level 75 mg/dL (74-106); Magnesium 2.2 mg/dL (1.8-2.4); NT PRO-BNP 775 pg/mL (<125); Phosphorus 3.4 mg/dL (2.5-4.9); Potassium 4.6 mmol/L (3.5-5.1); Sodium Level 140 mmol/L (136-145)
--- NOTE | 2020-10-26 08:33 | RAD REPORT ---
EXAM DESCRIPTION: Ramon Single View10/26/2020 6:50 am CLINICAL HISTORY: Chest pain COMPARISON: October 24 FINDINGS: Worsening left basilar opacities. No significant change right lung opacities. Dextrocardia. Heart is normal size. Tracheostomy tube place IMPRESSION: Worsening in left basilar no significant change in right pulmonary opacities likely pne umonia
[2020-10-26] MEDS: SMZ./TMP. 800/160 MG TABLET PO SCH ×2 (09:48→21:36)
[2020-10-26] MEDS: ENOXAPARIN 40 MG/0.4 ML SQ SCH (09:48)
[2020-10-26] MEDS ORDERED: HYDROCORTISONE SUC 100 MG INJ IV ONE (15:40)
[2020-10-26] MEDS ORDERED: NA CHLORIDE 0.9% 500 ML IV ONE (15:40)
[2020-10-26] MEDS: Levofloxacin500mg IV 500 MG/100 ML BAG IV SCH (18:19)
[2020-10-27] MEDS: PIPER/TAZO/NS 3.375gm 3.375 GM/100 ML BAG IVPB SCH ×2 (00:29→09:00)
[2020-10-27] MEDS: NA CHLORIDE 0.9% 1,000 ML IV SCH (00:30)
[2020-10-27] MEDS: IPRATROPIUM BROM 0.5MG/2.5ML NEB SCH ×4 (02:00→20:50)
[2020-10-27] MEDS: ALBUTEROL 2.5 MG/3 ML NEB SOL NEB SCH ×4 (02:00→20:50)
--- NOTE | 2020-10-27 06:30 | P.PN ---
Date of Service: 10/26/20 Subjective Patient continued to improve with no new complaints. Blood pressure is a little on the low side. Review of Systems 10-point ROS is otherwise unremarkable Physical Examination - Vital Signs Reviewed - Physical Exam General: Alert, In no apparent distress Respiratory: Clear to auscultation bilaterally, Normal air movement Cardiovascular: Regular rate/rhythm, Normal S1 S2 Gastrointestinal: Normal bowel sounds, No tenderness Neurological: Normal speech, Normal tone, Normal affect Assessment & Plan - Problems (Diagnosis) (1) Nosocomial pneumonia Current Visit: Yes Status: Acute (2) Laryngeal cancer Current Visit: Yes Status: Acute (3) HTN (hypertension) Current Visit: Yes Status: Acute (4) Cirrhosis of liver Current Visit: Yes Status: Acute - Plan Continue with plan of care as mentioned below: 1. Continue with IV antibiotics 2. Awaiting sputum and blood culture 3. Repeat chest x-ray 4. Will proceed with CT scan of the chest if pneumonia 5. Trach collar 6. Continue with nebs as needed 7. O2 per protocol 8. Continue with gentle hydration 9. Repeat labs including CBC and renal function in a.m. 10. GI and DVT prophylaxis - Advance Directives Does patient have a Living Will: No Does patient have a Durable POA for Healthcare: No - Code Status/Comfort Care Code Status: Full Code
[2020-10-27 06:48] LABS: Absolute Lymphocytes (CBC) 1.3 K/uL (0.7-4.9); Basophils % 0.6 % (0-1.3); Hematocrit 32.5 % (39.6-49.0); Lymphocytes % 14.6 % (15.3-44.8); MPV 8.8 fL (7.6-11.3); RBC Red Blood Cell Count 4.06 M/uL (4.33-5.43)
[2020-10-27 06:49] LABS: BUN Blood Urea Nitrogen 13 mg/dL (7-18); Bicarbonate 25 mmol/L (21-32); Glucose Level 86 mg/dL (74-106); NT PRO-BNP 532 pg/mL (<125); Potassium 4.2 mmol/L (3.5-5.1); Sodium Level 140 mmol/L (136-145)
--- NOTE | 2020-10-27 08:48 | RAD REPORT ---
EXAM DESCRIPTION: RAD - Chest Single View - 10/27/2020 6:33 am CLINICAL HISTORY: pneumonia Chest pain. COMPARISON: Chest Single View dated 10/26/2020; Chest Single View dated 10/24/2020; Chest Pa And Lat ( 2 Views) dated 10/03/2020; Chest Single View dated 10/02/2020 FINDINGS: Portable technique limits examination quality. Emphysematous changes are present throughout the lungs with little overall change in the right lung b ase opacity. Mild improvement in the left lung base infiltrate is seen. The heart is upper limit norm al in size with a tortuous thoracic aorta. Tracheostomy tube is stable in position approximately 2 cm above the level of the aortic arch. IMPRESSION: Mild to moderate improvement in left lung base pneumonia.
[2020-10-27] MEDS: SMZ./TMP. 800/160 MG TABLET PO SCH ×2 (09:00→22:04)
[2020-10-27] MEDS: ENOXAPARIN 40 MG/0.4 ML SQ SCH (09:00)
[2020-10-27 09:03] LABS: Anisocytosis 1+; Blood Morphology Comment NOTED (NOT SEEN); Platelet Estimate ADEQ
[2020-10-27] MEDS ORDERED: DOCUSATE NA/SENNA CONC 1 TAB FT PRN (13:13)
--- NOTE | 2020-10-27 13:21 | P.PN ---
Subjective Date of Service: 10/27/20 Primary Care Provider: care home Chief Complaint: Nosocomial acquired pneumonia Subjective: Improving Physical Examination - Vital Signs Temperature: 97.8 F Blood Pressure: 106/52 Pulse: 80 Respirations: 20 Pulse Ox (%): 93 - Studies Medications List Reviewed: Yes Assessment & Plan Discharge Plan: Jail Plan to discharge in: 24 Hours Physician Review Additional Text: Physical exam: Patient alert, cooperative. Neck: Trach appears stable. Heart: Regular rate and rhythm Lungs: Slight crackles to the left base. Patient does not appear in any distress. Abdomen: Soft nontender nondistended. PEG tube in place. 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 Continue with Bactrim as this was sensitive in the past. Culture positive for Acinotobacter on October 02. Will consult pulmonology for further recommendation. Chest x-ray shows improvement. Continue to monitor the patient closely. Suspect aspiration pneumonia with dysphagia. We will keep the patient n.p.o. at this time. We will have speech evaluate swallowing. Dietary consulted to address daily needs. Advance care minutes addressed in detail. Patient will go back to the detention at discharge. Patient full code. Home medications reviewed and restarted. Patient continues to show improvement. Likely discharge as early as tomorrow back to the detention. Time Spent Managing Pts Care (In Minutes): 55
[2020-10-27] MEDS: ACETYLCYST 20% 4 ML VIAL IH SCH ×2 (14:23→20:50)
[2020-10-27] MEDS: D5 0.9 NS 1,000 ML IV SCH (14:27)
[2020-10-27] MEDS ORDERED: SCOPOLAMINE HYDROBROMIDE PATCH TD ONE (15:00)
[2020-10-27] MEDS: SODIUM CHLORIDE FOR INHALATION IH SCH (21:00)
[2020-10-27] MEDS: [UNRECOGNIZED DRUG - OTHER] IH SCH (21:00)
[2020-10-27] MEDS: FAMOTIDINE 20 MG TAB FT SCH (22:04)
[2020-10-28] MEDS: IPRATROPIUM BROM 0.5MG/2.5ML NEB SCH ×2 (02:20→07:46)
[2020-10-28] MEDS: ALBUTEROL 2.5 MG/3 ML NEB SOL NEB SCH ×2 (02:20→07:46)
[2020-10-28 06:02] LABS: Absolute Lymphocytes (CBC) 1.5 K/uL (0.7-4.9); Basophils % 0.6 % (0-1.3); Hematocrit 34.3 % (39.6-49.0); Lymphocytes % 28.6 % (15.3-44.8); MPV 8.3 fL (7.6-11.3); RBC Red Blood Cell Count 4.23 M/uL (4.33-5.43)
[2020-10-28 06:04] LABS: BUN Blood Urea Nitrogen 8 mg/dL (7-18); Bicarbonate 26 mmol/L (21-32); Glucose Level 77 mg/dL (74-106); Potassium 3.9 mmol/L (3.5-5.1); Sodium Level 141 mmol/L (136-145)
[2020-10-28] MEDS: ACETYLCYST 20% 4 ML VIAL IH SCH (07:46)
[2020-10-28] MEDS ORDERED: DOXAZOSIN 2 MG TAB ONE (08:00)
[2020-10-28] MEDS: SMZ./TMP. 800/160 MG TABLET PO SCH (08:41)
[2020-10-28] MEDS: ENOXAPARIN 40 MG/0.4 ML SQ SCH (08:44)
[2020-10-28] MEDS: FAMOTIDINE 20 MG TAB FT SCH (08:44)
[2020-10-28 08:45] VITALS: BP 112/63
[2020-10-28] MEDS: [UNRECOGNIZED DRUG - OTHER] IH SCH (08:45)
[2020-10-28] MEDS: SODIUM CHLORIDE FOR INHALATION IH SCH (08:45)
[2020-10-28] MEDS ORDERED: THIAMINE HCL 100 MG TABLET FT SCH (09:00)
[2020-10-28] MEDS ORDERED: Fluticasone/Umeclidin/Vilanter [Trelegy Ellipta 100-62.5-25] Blst.W.Dev IH SCH (09:00)
[2020-10-28] MEDS ORDERED: MULTIVITAMIN TAB PO SCH (09:00)
[2020-10-28] MEDS ORDERED: POTASSIUM 25 MEQ EFFERV TAB PO ONE (09:00)
[2020-10-28] MEDS ORDERED: FOLIC ACID 1 MG TABLET FT SCH (09:00)
[2020-10-28] MEDS ORDERED: DOXAZOSIN 4 MG TAB FT SCH (09:00)
[2020-10-28] MEDS: D5 0.9 NS 1,000 ML IV SCH (10:00)
[2020-10-28 10:46] VITALS: TEMP 97
[2020-10-28 11:39] VITALS: O2SAT 87
--- NOTE | 2020-10-28 11:49 | P.DS ---
Admission Date: 10/24/20 Discharge Date: 10/28/20 Primary Care Provider: [facility] Disposition: TRANSFER TO PRISON Discharge Condition: GOOD Reason for Admission: Cough, congestion Consultations: Pulmonary-Dr. Graham Procedures: COVID: Negative Follow up CXR: FINDINGS: Portable technique limits examination quality. Emphysematous changes are present throughout the lungs with little overall change in the right lung base opacity. Mild improvement in the left lung base infiltrate is seen. The heart is upper limit normal in size with a tortuous thoracic aorta. Tracheostomy tube is stable in position approximately 2 cm above the level of the aortic arch. IMPRESSION: Mild to moderate improvement in left lung base pneumonia. MDS: Patient exhibited gross, silent aspiration. Recommendation is for the patient to remain n.p.o. Continue with PEG tube nutrition only. 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 Patient presented with increased cough, congestion. Patient with history of laryngeal cancer status post tracheostomy. Tube in place. Patient was admitted recently for similar issues. Patient admitted for IV antibiotic therapy and treatment. Hospital Course: Patient presented with cough, congestion. This was secondary to left base pneumonia. Recurrent aspiration was noted. Patient was treated with IV antibiotic therapy. Patient with prior history of aspiration with prior sputum culture positive for Citrobacter. Patient was evaluated during the course of his stay. This included pulmonology and speech. Dysphagia was suspected. Modified barium swallow showed gross silent aspiration. It was recommended remain n.p.o. Patient will continue with PEG tube feeds only. Pulmonology reviewed recent sputum which showed Pseudomonas and Acintobacter. Pulmonology felt this was colonization of bacteria. The patient was not septic. Pulmonology felt no need for continued antibiotic therapy. This can be monitored closely as an outpatient. If the patient worsens and requires antibiotics patient will require IV antibiotic. At discharge patient will continue with PEG tube feeds as directed. Patient to remain n.p.o. to prevent future aspiration. Recommend recheck chest x-ray in 2 to 4 weeks to monitor resolution. Patient may follow-up with pulmonology as an outpatient in 2 to 4 weeks to follow-up hospitalization. Aspiration precaution in place. Patient with underlying COPD. At discharge patient will continue with oxygen to maintain sats above 93%. Patient on trach collar. Patient will continue with COPD medications including Trelegy 1 puff daily, Atrovent nebs 3 times a day as needed for shortness of breath, Mucomyst nebs 3 times a day, saline nebs 3 times a day. Patient with oxygen per trach collar. Patient with moderate protein malnutrition. Patient will continue with current PEG tube feeds-TwoCal 4 cans/day. As mentioned above patient remains n.p.o. to prevent future aspiration. All nutrition will go through the PEG tube. Dietary at intermediate can continue to follow patient and make further recommendations to ensure adequate nutrition. Patient will continue with multivitamin daily, folic acid daily, and thiamine daily. Patient with BPH. Patient will continue with his current medication Cardura 4 mg daily.. Vital Signs/Physical Exam: Temp Pulse Resp BP Pulse Ox 97 F 81 20 112/63 91 10/28/20 08:00 10/28/20 08:41 10/28/20 08:00 10/28/20 08:41 10/28/20 08:00 General: Alert, In no apparent distress, Oriented x3, Cooperative HEENT: Atraumatic Neck: Supple, Other (Trach in proper alignment) Respiratory: Clear to auscultation bilaterally Cardiovascular: Normal pulses, Regular rate/rhythm Gastrointestinal: Normal bowel sounds, No masses, No rebound, No guarding, Other (PEG tube in place) Neurological: Normal speech, Normal strength at 5/5 x4 extr, Normal tone, Normal affect Laboratory Data at Discharge: WBC 5.30 K/uL (4.3-10.9) D 10/28/20 05:13 Hgb 11.4 g/dL (13.6-17.9) L 10/28/20 05:13 Hct 34.3 % (39.6-49.0) L 10/28/20 05:13 Plt Count 332 K/uL (152-406) D 10/28/20 05:13 PT 18.6 SECONDS (9.5-12.5) H 10/25/20 05:30 INR 1.61 10/25/20 05:30 APTT 47.7 SECONDS (24.3-36.9) H 10/25/20 05:30 Sodium 141 mmol/L (136-145) 10/28/20 05:00 Potassium 3.9 mmol/L (3.5-5.1) 10/28/20 05:00 BUN 8 mg/dL (7-18) 10/28/20 05:00 Creatinine 0.58 mg/dL (0.55-1.3) 10/28/20 05:00 Glucose 77 mg/dL (74-106) 10/28/20 05:00 Phosphorus 3.4 mg/dL (2.5-4.9) 10/26/20 05:43 Magnesium 2.0 mg/dL (1.8-2.4) 10/28/20 05:00 Total Bilirubin 0.7 mg/dL (0.2-1.0) 10/25/20 05:30 AST 14 U/L (15-37) L 10/25/20 05:30 ALT 31 U/L (12-78) 10/25/20 05:30 Alkaline Phosphatase 70 U/L (45-117) 10/25/20 05:30 Triglycerides 61 mg/dL (<150) 10/25/20 05:30 Cholesterol 164 mg/dL (<200) 10/25/20 05:30 HDL Cholesterol 70 mg/dL (40-60) H 10/25/20 05:30 Cholesterol/HDL Ratio 2.34 10/25/20 05:30 Home Medications: Acetaminophen 650 mg FT BID PRN 10/02/20 Acetylcysteine 3 ml NEB TID 10/02/20 Doxazosin [Cardura*] 4 mg FT DAILY 10/02/20 Famotidine 20 mg FT Q12H 10/02/20 Ipratropium/Albuterol Sulfate [Iprat-Albut 0.5-3(2.5) mg/3 ml] 3 ml IH Q4HP PRN 10/02/20 Multivitamin 1 tab FT DAILY 10/02/20 Scopolamine [Transderm-Scop] 1 patch TD Q72H 10/02/20 Sennosides/Docusate Sodium [Senna Plus 8.6-50 mg Softgel] 8.6 mg FT Q12HP PRN 10/02/20 Sodium Chloride For Inhalation [Hyper-Kana] 4 ml IH BID 10/02/20 Fluticasone/Umeclidin/Vilanter [Trelegy Ellipta 100-62.5-25] 1 each IH DAILY #1 blst.w.dev 10/03/20 Folic Acid 1 mg FT DAILY #90 tablet 10/03/20 Thiamine HCl 100 mg FT DAILY #90 tablet 10/03/20 Physician Discharge Instructions: Patient presented with cough, congestion. This was secondary to left base pneumonia. Recurrent aspiration was noted. Patient was treated with IV antibiotic therapy. Patient with prior history of aspiration with prior sputum culture positive for Citrobacter. Patient was evaluated during the course of his stay. This included pulmonology and speech. Dysphagia was suspected. Modified barium swallow showed gross silent aspiration. It was recommended remain n.p.o. Patient will continue with PEG tube feeds only. Pulmonology reviewed recent sputum which showed Pseudomonas and Acintobacter. Pulmonology felt this was colonization of bacteria. The patient was not septic. Pulmonology felt no need for continued antibiotic therapy. This can be monitored closely as an outpatient. If the patient worsens and requires antibiotics patient will require IV antibiotic. At discharge patient will continue with PEG tube feeds as directed. Patient to remain n.p.o. to prevent future aspiration. Recommend recheck chest x-ray in 2 to 4 weeks to monitor resolution. Patient may follow-up with pulmonology as an outpatient in 2 to 4 weeks to follow-up hospitalization. Aspiration precaution in place. Patient with underlying COPD. At discharge patient will continue with oxygen to maintain sats above 93%. Patient on trach collar. Patient will continue with COPD medications including Trelegy 1 puff daily, Atrovent nebs 3 times a day as needed for shortness of breath, Mucomyst nebs 3 times a day, saline nebs 3 times a day. Patient with oxygen per trach collar. Patient with moderate protein malnutrition. Patient will continue with current PEG tube feeds-TwoCal 4 cans/day. As mentioned above patient remains n.p.o. to prevent future aspiration. All nutrition will go through the PEG tube. Dietary at intermediate can continue to follow patient and make further recommendations to ensure adequate nutrition. Patient will continue with multivitamin daily, folic acid daily, and thiamine daily. Patient with BPH. Patient will continue with his current medication Cardura 4 mg daily.. Diet: PEG Activity: Ad lety Followup: MANDA MCMANUS [Primary Care Provider] - Time spent managing pt's care (in minutes): 55
--- NOTE | 2020-10-28 12:29 | RAD REPORT ---
EXAM DESCRIPTION: RAD - Barium Swallow Modified - 10/28/2020 12:13 pm CLINICAL HISTORY: speech recommendation COMPARISON: None. TECHNIQUE: The patient was given liquid, semi-solid and solid forms of barium. Lateral view fluorosc opic imaging was performed in conjunction with speech pathology service. FINDINGS: Cineloop acquisitions: Fluoro time: 7 minutes 1 second Laryngeal penetration: Cleared with nectar by cup sip at end of study Aspiration: No cough With: thin, honey, pudding, and magy cracker. Vallecular residue was moderate with all consistencies. Reduced with multipule swallows but did not c lear completely. Pyriform residue was moderate with all consistencies; severe with honey; reduced with multiple swallo ws, but did not clear completely. Posterior wall residue was mild with all consistencies. Reduced Hyolaryngeal excursion; No epiglottic inversion, 2 in trach tube, Severely delayed swallow (2 -3 sec) IMPRESSION: Modified barium swallow as summarized above and fully detailed on speech pathology repor delmy
--- NOTE | 2020-10-28 12:38 | P.CNS ---
Date of Consult: 10/28/20 Reason for Consult: Possible aspiration pneumonia Primary Care Provider: correction Chief Complaint: Cough, congestion sputum positive with resistant bacteria History of Present Illness: Patient is 70 years of age lives in a [facility]ci has a tracheostomy came to the emergency room with coughing and congestion he has had a tracheostomy due to laryngeal cancer continues to lose weight has a PEG tube apparently still eating the area swallow showed aspiration Otherwise is alert cooperative the room shows multiple resistant organism Allergies No Known Allergies Allergy (Verified 10/02/20 11:29) Home Medications: Acetaminophen 650 mg FT BID PRN 10/02/20 Acetylcysteine 3 ml NEB TID 10/02/20 Doxazosin [Cardura*] 4 mg FT DAILY 10/02/20 Famotidine 20 mg FT Q12H 10/02/20 Ipratropium/Albuterol Sulfate [Iprat-Albut 0.5-3(2.5) mg/3 ml] 3 ml IH Q4HP PRN 10/02/20 Multivitamin 1 tab FT DAILY 10/02/20 Scopolamine [Transderm-Scop] 1 patch TD Q72H 10/02/20 Sennosides/Docusate Sodium [Senna Plus 8.6-50 mg Softgel] 8.6 mg FT Q12HP PRN 10/02/20 Sodium Chloride For Inhalation [Hyper-Kana] 4 ml IH BID 10/02/20 Fluticasone/Umeclidin/Vilanter [Trelegy Ellipta 100-62.5-25] 1 each IH DAILY #1 blst.w.dev 10/03/20 Folic Acid 1 mg FT DAILY #90 tablet 10/03/20 Thiamine HCl 100 mg FT DAILY #90 tablet 10/03/20 - Past Medical/Surgical History Diabetic: No -: Laryngeal cancer status post tracheostomy/PEG tube -: Hypertension -: Cirrhosis of the liver -: COPD -: bph -: dysphagia -: Tracheostomy -: PEG tube Psychosocial/ Personal History: Patient currently resides in [facility] - Family History Father Notes: Extremely difficult understand patient, unable to obtain at this time. - Social History Smoking Status: Unknown if ever smoked Alcohol use: No CD- Drugs: No Caffeine use: No Place of Residence: [place] Review of Systems General: Weakness Respiratory: Cough, Shortness of Breath Physical Examination Temp Pulse Resp BP Pulse Ox 97 F 81 20 112/63 91 10/28/20 08:00 10/28/20 08:41 10/28/20 08:00 10/28/20 08:41 10/28/20 08:00 General: Alert, Cooperative Respiratory: Clear to auscultation bilaterally, Diminished Cardiovascular: No edema, Normal S1 S2 - Problems (1) Pneumonia Current Visit: No Status: Acute Plan: Patient is 70 years of age admitted with cough congestion he has a tracheostomy a couple resistant organisms isolated from the trachea there is no evidence of sepsis is chest x-rays clear some volume loss on the right side this sick really aspirating he should be NPO patient has a PEG tube no evidence of sepsis white any antibiotics stable for discharge patient has nebulizers and bronchodilators at home Qualifiers: Pneumonia type: due to unspecified organism Laterality: unspecified laterality Lung location: unspecified part of lung Qualified Code(s): J18.9 - Pneumonia, unspecified organism
[2020-10-30] MEDS ORDERED: SCOPOLAMINE HYDROBROMIDE PATCH TD SCH (09:00)
== END 2020-10-28 13:55 | DRG 177 ==
LOC: ER 11:12 → ERHOLD 12:58 → 2ND 14:41
PROVIDERS: ADMIT Hospitalist; ATTEND Family Medicine
DX: J69.0 Pneumonitis due to inhalation of food and vomit (principal); J96.01 Acute respiratory failure with hypoxia; E44.1 Mild protein-calorie malnutrition; Z68.1 Body mass index [BMI] 19.9 or less, adult; I10 Essential (primary) hypertension; C32.9 Malignant neoplasm of larynx, unspecified; N40.0 Benign prostatic hyperplasia without lower urinary tract symptoms; K74.60 Unspecified cirrhosis of liver; J44.9 Chronic obstructive pulmonary disease, unspecified; B96.5 Pseudomonas (aeruginosa) (mallei) (pseudomallei) as the cause of diseases classified elsewhere; Z93.0 Tracheostomy status; Z79.52 Long term (current) use of systemic steroids; Z93.1 Gastrostomy status; Z79.899 Other long term (current) drug therapy; Z85.21 Personal history of malignant neoplasm of larynx; Z20.822 Contact with and (suspected) exposure to COVID-19
CPT/HCPCS: 36415; 71045; 74230; 80048; 80053; 80061; 80076; 82947; 83605; 83735; 83880; 84100; 84145; 84484; 85025; 85610; 85730; 87040; 87070; 87077; 87186; 87205; 92523; 92610; 92611; 93005; 94640; 94760; 96365; 96375; 99285; J0456; J1650; J1720; J2543; J3370; J7030; J7042; J7050; U0003

== ENCOUNTER 2020-11-16 06:10 | Inpatient (IN) | payer OTHER ==
--- OUTSIDE RECORDS SUMMARY | 2020-11-16 06:13 | XMS REPORT | Continuity of Care Document ---
:[address] [facility] t Address [address] [place] [address] Care Team Providers Name Role Phone MD MIK Primary Care Physician Simone SIERRA Attending Clinician Roger ANDREWS Attending Clinician Unavailable Doctor Unassigned, Name Attending Clinician Unavailable Torrie BLANCO Attending Clinician Urvashi SIERRA Attending Clinician Jabari SIERRA, Ramesh Attending Clinician Tavo SIERRA, C Attending Clinician Nargis Mix MD Attending Clinician Danyell SIERRA Attending Clinician Urvashi SIERRA Admitting Clinician Problems Condition Condition Condition Status Onset Resolution Last Treating Co mments Source Name Details Category Date Date Treatment Clinician Date Contusion Problem Active [facility] Al[facility] Delia - Patient [facility] Center Allergies, Adverse Reactions, Alerts This patient has no known allergies or adverse reactions. Social History Social Habit Start Date Stop Date Quantity Comments Source Sex Assigned At [address] [facility] - 00:00:00 00:00:00 Patients [facility] Medications This patient has no known medications. Vital Signs Vital Name Observation Time Observation Value Comments Source Oxygen saturation by 2020-07-12 22:54:00 100 /min [facility] - Pulse oximetry Patients [facility] Weight 2020-07-12 20:29:00 172 [lb_av] [facility] - Patients [facility] BMI (Body Mass 2020-07-12 20:29:00 26.2 kg/m2 [facility] - Index) Patients [facility] Procedures Procedure Date / Time Performed Performing Clinician Kallie mcmillan Computed tomography of 2020-07-12 00:00:00 [facility] - brain without Patients Medical radiopaque contrast Center Plan of Care Planned Activity Planned Date Details Comments Source Instructions Concussion/Head Injury [facility] - - Adult Patients [facility] Encounters Start End Encounter Admission Attending Care Care Encounter Source Date/Time Date/Time Type Type Clinicians Facility Department ID 2020-11-08 2020-11-08 Emergency [facility] [id number] 06:49:00 09:28:00 Maximo Mullins [id number] [place] [id number] [place] [id number] 2020-07-12 2020-07-12 Departed 1 DARRYL [facility] A00 [id number] [facility]. 20:30:00 23:58:00 Emergency AARON Patients 79 [address] - Room [facility] 2020-05-23 2020-05-23 Orders Doctor GURWINDER [id number] 00:00:00 00:00:00 Only Unassigned, KAMALJIT [id number] [place] [facility] [id number] [id number] 2020-05-09 2020-05-09 Transition Tito Brownlee [id number] 00:00:00 00:00:00 of Care Yamileth Beltre [id number] [place] [id number] 2020-04-15 2020-05-08 [facility] Suhail Landin [id number] 17:20:00 18:01:00 Encounter Sharri Barboza [id number] Keith Vo [facility] 4.2.7.2.68 6 Sirena Mix [id number] 2020-04-21 2020-04-21 [facility] [id number] 00:00:00 00:00:00 heide MARI [id number] [facility] [id number] Results Test Description Test Time Test Comments Results Result Sourc e Comments CT BRAIN WO 2020-07-12 21:38:00 [facility] : 1950 Sex: M [facility] [address] [place] [address] Patient Name: TROY FITZGERALD MR #: [id number] : 1950 Age/Sex: 70/M Req #: [id number] Adm Physician: Ordered by: AARON ANDREWS MD Report #: [id number] Location: Room/Bed: Procedure: [id number] CT/CT BRAIN WO Exam Date: 07/12/20 Exam [...] to further evaluate. Signed by: Dr. Agus Hester M.D. on 07/12/2020 9:56 PM Dictated By: AGUS HESTER MD 55 Transcribed By: FARZANEH on 07/12/202155 COPY TO: AARON ANDREWS MD
--- NOTE | 2020-11-16 06:54 | ER ---
Nurse's Notes [facility] Name: Abilio Torrez Jr Age: 70 yrs Sex: Male : 1950 Arrival Date: 11/16/2020 Time: 06:13 Bed 2 Private MD: Diagnosis: Tracheostomy status;Tracheostomy complications;Pneumonia, unspecified organism-aspiration;Chronic obstructive pulmonary disease with (acute) exacerbation Presentation: 11/16 06:14 Chief complaint: EMS states: Called for patient with bleeding from trach noticed at lp1 0400 today by nurse; nurse reports patient with alzheimer's and sometimes sticks things in trach; Patient noted to have wet cough. Coronavirus screen: Client denies travel out of the [place] in the last 14 days. At this time, the client does not indicate any symptoms associated with coronavirus-19. Ebola Screen: No symptoms or risks identified at this time. Initial Sepsis Screen: Does the patient meet any 2 criteria? No. Patient's initial sepsis screen is negative. Does the patient have a suspected source of infection? No. Patient's initial sepsis screen is negative. Risk Assessment: Do you want to hurt yourself or someone else? Patient reports no desire to harm self or others. Onset of symptoms was November 16, 2020. 06:14 Method Of Arrival: EMS: [facility] lp1 06:14 Acuity: STEFANI 3 lp1 Historical: - Allergies: 06:22 No Known Allergies; lp1 - Home Meds: 06:38 doxazosin 4 mg Oral tab 1 tab once daily [Active]; famotidine 20 mg Oral tab 1 tab lp1 every 12 hours [Active]; folic acid 1 mg Oral tab 1 tab once daily [Active]; guaifenesin 100 mg/5 mL Oral liqd 10 mL every 4 hours [Active]; Miralax 17 gram/dose Oral powd once daily [Active]; scopolamine transdermal 1 patch every 72 hours [Active]; senna 8.6 mg Oral tab 1 tabs twice a day [Active]; thiamine HCl (vitamin B1) 100 mg Oral tab daily [Active]; trelegy ellipta [Active]; prednisone 20 mg Oral tab once daily [Active]; acetylcysteine 200 mg/mL (20 %) miscellaneous soln 3 mL 3 times per day [Active]; DuoNeb 0.5 mg-3 mg(2.5 mg base)/3 mL Inhl nebu 3 mL every 4 hours as needed [Active]; - PMHx: 06:22 BPH; Cirrhosis; COPD; Hypertension; Laryngeal CA; squamous cell carcinoma; lp1 - Immunization history:: Adult Immunizations up to date. - Social history:: Smoking status: unknown. - Family history:: not pertinent. Screenin:22 Abuse screen: Denies threats or abuse. Denies injuries from another. Nutritional lp1 screening: No deficits noted. Tuberculosis screening: No symptoms or risk factors identified. Fall Risk Total Berger Fall Scale indicates High Risk Score (45 or more points). Fall prevention measures have been instituted. Side Rails Up X 2 Family Present and informed to notify staff if the need to leave the bedside As available patient and family educated on Fall Prevention Program and Strategies. Assessment: 06:30 General: Appears in no apparent distress. Behavior is cooperative. Pain: Denies pain. lp1 Neuro: Level of Consciousness is awake, alert, obeys commands, Oriented to person, place. Cardiovascular: Patient's skin is warm and dry. Respiratory: Airway is patent Trachea midline Respiratory effort is even, Respiratory pattern is regular, tracheostomy noted, reddish color noted to trach tube, mucus Breath sounds with crackles bilaterally. GI: Abdomen is flat. : No signs and/or symptoms were reported regarding the genitourinary system. EENT: No signs and/or symptoms were reported regarding the EENT system. Derm: Skin is intact, is thin, Skin is dry, Skin is normal. Musculoskeletal: No signs and/or symptoms reported regarding the musculoskeletal system. 07:00 Reassessment: RECD REPORT FROM FIDELINA BLANCO. 70YO BM P/W EXCESSIVE TRACH SECRETIONS. bp 07:36 Reassessment: PHLEBOTOMY CONTACTED FOR 2ND BLOOD CX. bp 08:00 Reassessment: 2ND BLOOD CX COMPLETED. RT CONTACTED FOR DEEP SUCTIONING, PT DESAT. bp 08:25 Reassessment: DEEP SUCTIONING BY RT. SP02 IMPROVED, PT STATES S/S IMPROVEMENT. bp Respiratory: Airway is patent Trachea midline Respiratory effort is even, labored, Respiratory pattern is regular, Breath sounds with crackles bilaterally. 10:00 Reassessment: No changes from previously documented assessment. Patient and/or family bp updated on plan of care and expected duration. Pain level reassessed. HOSPITALIST AT B/S. 11:14 Reassessment: PT ON ER HOLD. SEE [facility]. bp Vital Signs: 06:14 BP 106 / 69; Pulse 93; Resp 18; Temp 97.9(O); Pulse Ox 95% on 15% Non-rebreather mask; lp1 Weight 68.04 kg (R); 08:00 BP 112 / 60; Pulse 83; Resp 27; Pulse Ox 79% on 15% Simple Mask; bp 08:26 BP 105 / 69; Pulse 80; Resp 25; Pulse Ox 99% ; bp 10:00 BP 108 / 65; Pulse 76; Resp 23; Pulse Ox 100% ; bp 10:53 Height 6 ft. 0 in. (182.88 cm) (R); bp 11:00 BP 103 / 67; Pulse 93; Resp 24; Pulse Ox 98% ; bp 11:55 BP 96 / 67; Pulse 91; Resp 26; Pulse Ox 99% ; bp 10:53 Body Mass Index 20.34 (68.04 kg, 182.88 cm) bp ED Course: 06:13 Patient arrived in ED. lp1 06:18 Triage completed. lp1 06:18 Arm band placed on. lp1 06:19 Ajith Jerome MD is Attending Physician. diane 06:30 Linda Garland, FRANCIS is Primary Nurse. lp1 06:52 Earl Cornell MD is Hospitalizing Provider. diane 06:56 XRAY Chest (1 view) In Process Unspecified. EDMS 07:00 Patient has correct armband on for positive identification. Bed in low position. Call bp light in reach. Side rails up X2. 07:00 No provider procedures requiring assistance completed. bp 07:12 Inserted saline lock: in left antecubital area, using aseptic technique. Blood oe collected. 07:[address] In Process Unspecified. EDMS 10:19 Primary Nurse role handed off by Linda Garland, FRANCIS bp 10:19 Pete Nagel, FRANCIS is Primary Nurse. bp 11:15 Patient admitted, IV remains in place. bp Administered Medications: 06:56 Drug: SOLU-Medrol (methylPrednisoLONE) 125 mg Route: IVP; Site: left forearm; lp1 10:20 Follow up: Response: No adverse reaction bp 06:56 Drug: AtroVENT (ipratropium) Aerosol 0.5 mg Route: Inhalation; lp1 06:56 Drug: Pepcid (famotidine) 20 mg Route: IVP; Site: left forearm; lp1 07:08 Follow up: Response: No adverse reaction bp 06:57 Drug: Xopenex (levalbuterol) 3.75 mg Route: Inhalation; lp1 08:00 Drug: Zosyn (piperacillin-tazobactam) 3.375 grams Route: IVPB; Infused Over: 60 mins; bp Site: left forearm; 10:20 Follow up: IV Status: Completed infusion; IV Intake: 100ml bp 10:00 Drug: vancoMYCIN 1 grams Route: IVPB; Infused Over: 2 hrs; Site: left forearm; bp 11:15 Follow up: IV Status: Completed infusion; IV Intake: 250ml bp Intake: 10:20 IV: 100ml; Total: 100ml. bp 11:15 IV: 250ml; Total: 350ml. bp Outcome: 06:54 Decision to Hospitalize by Provider. diane 11:14 Admitted to ER Hold. Please see [facility] for further documentation. bp 11:14 Condition: stable 11:14 Instructed on the need for admit. 12:47 Patient left the ED. bp Signatures: Dispatcher [employer] EDMS Ajith Jerome MD MD cha Pena, Laura, RN RN lp1 Rohit Kelly Brian, RN RN bp Corrections: (The following items were deleted from the chart) 08:26 08:00 Pulse 80bpm; Resp 25bpm; Pulse Ox 99%; bp bp
--- NOTE | 2020-11-16 06:54 | EDPHYS ---
Physician Documentation [facility] Name: Abilio Torrez Jr Age: 70 yrs Sex: Male : 1950 Arrival Date: 11/16/2020 Time: 06:13 Bed 2 Private MD: ED Physician Ajith eJrome HPI: 11/16 06:42 This 70 yrs old Black Male presents to ER via EMS with complaints of dyspnea and trach diane issues. 06:42 The patient has shortness of breath at rest. Onset: The symptoms/episode began/occurred diane 2 day(s) ago. Duration: The symptoms are continuous, and are steadily getting worse. The patient's shortness of breath is aggravated by coughing, light activity, is alleviated by elevating head, application of supplemental oxygen. The patient or guardian reports cough, described as moderate, difficulty breathing. Onset: The symptoms/episode began/occurred. Modifying factors: The symptoms are alleviated by changing position, elevating head, the symptoms are aggravated by activity, lying flat. Associated signs and symptoms: Pertinent positives: productive cough. Severity of symptoms: At their worst the symptoms were mild moderate in the emergency department the symptoms are unchanged. Associated signs and symptoms: Pertinent positives: rhinorrhea. Historical: - Allergies: 06:22 No Known Allergies; lp1 - Home Meds: 06:38 doxazosin 4 mg Oral tab 1 tab once daily [Active]; famotidine 20 mg Oral tab 1 tab lp1 every 12 hours [Active]; folic acid 1 mg Oral tab 1 tab once daily [Active]; guaifenesin 100 mg/5 mL Oral liqd 10 mL every 4 hours [Active]; Miralax 17 gram/dose Oral powd once daily [Active]; scopolamine transdermal 1 patch every 72 hours [Active]; senna 8.6 mg Oral tab 1 tabs twice a day [Active]; thiamine HCl (vitamin B1) 100 mg Oral tab daily [Active]; trelegy ellipta [Active]; prednisone 20 mg Oral tab once daily [Active]; acetylcysteine 200 mg/mL (20 %) miscellaneous soln 3 mL 3 times per day [Active]; DuoNeb 0.5 mg-3 mg(2.5 mg base)/3 mL Inhl nebu 3 mL every 4 hours as needed [Active]; - PMHx: 06:22 BPH; Cirrhosis; COPD; Hypertension; Laryngeal CA; squamous cell carcinoma; lp1 - Immunization history:: Adult Immunizations up to date. - Social history:: Smoking status: unknown. - Family history:: not pertinent. ROS: 06:42 Constitutional: Negative for fever, chills, and weight loss, Eyes: Negative for injury, diane pain, redness, and discharge, Neck: Negative for injury, pain, and swelling, Cardiovascular: Negative for chest pain, palpitations, and edema, Respiratory: Negative for shortness of breath, cough, wheezing, and pleuritic chest pain, Abdomen/GI: Negative for abdominal pain, nausea, vomiting, diarrhea, and constipation, Back: Negative for injury and pain, : Negative for injury, bleeding, discharge, and swelling, MS/Extremity: Negative for injury and deformity, Skin: Negative for injury, rash, and discoloration, Neuro: Negative for headache, weakness, numbness, tingling, and seizure, Psych: Negative for depression, anxiety, suicide ideation, homicidal ideation, and hallucinations, Allergy/Immunology: Negative for hives, rash, and allergies, Endocrine: Negative for neck swelling, polydipsia, polyuria, polyphagia, and marked weight changes, Hematologic/Lymphatic: Negative for swollen nodes, abnormal bleeding, and unusual bruising. 06:42 ENT: Positive for rhinorrhea, sinus congestion. 06:42 Neck: Positive for swelling, trach secretions. 06:42 Respiratory: Positive for cough, shortness of breath, wheezing, expiratory. Exam: 06:42 Constitutional: This is a well developed, well nourished patient who is awake, alert, diane and in no acute distress. Head/Face: Normocephalic, atraumatic. Eyes: Pupils equal round and reactive to light, extra-ocular motions intact. Lids and lashes normal. Conjunctiva and sclera are non-icteric and not injected. Cornea within normal limits. Periorbital areas with no swelling, redness, or edema. Neck: Trachea midline, no thyromegaly or masses palpated, and no cervical lymphadenopathy. Supple, full range of motion without nuchal rigidity, or vertebral point tenderness. No Meningismus. Chest/axilla: Normal chest wall appearance and motion. Nontender with no deformity. No lesions are appreciated. Cardiovascular: Regular rate and rhythm with a normal S1 and S2. No gallops, murmurs, or rubs. Normal PMI, no JVD. No pulse deficits. Abdomen/GI: Soft, non-tender, with normal bowel sounds. No distension or tympany. No guarding or rebound. No evidence of tenderness throughout. Back: No spinal tenderness. No costovertebral tenderness. Full range of motion. Male : Normal genitalia with no discharge or lesions. Skin: Warm, dry with normal turgor. Normal color with no rashes, no lesions, and no evidence of cellulitis. MS/ Extremity: Pulses equal, no cyanosis. Neurovascular intact. Full, normal range of motion. Neuro: Awake and alert, GCS 15, oriented to person, place, time, and situation. Cranial nerves II-XII grossly intact. Motor strength 5/5 in all extremities. Sensory grossly intact. Cerebellar exam normal. Normal gait. Psych: Awake, alert, with orientation to person, place and time. Behavior, mood, and affect are within normal limits. 06:42 ENT: Posterior pharynx: Airway: normal, no evidence of obstruction. 06:42 Neck: C-spine: appears grossly normal, no acute changes, ROM/movement: no acute changes, trach secretions, thick , bloody , minimally. 07:01 ECG was reviewed by the Attending Physician. [facility] Vital Signs: 06:14 BP 106 / 69; Pulse 93; Resp 18; Temp 97.9(O); Pulse Ox 95% on 15% Non-rebreather mask; lp1 Weight 68.04 kg (R); 08:00 BP 112 / 60; Pulse 83; Resp 27; Pulse Ox 79% on 15% Simple Mask; bp 08:26 BP 105 / 69; Pulse 80; Resp 25; Pulse Ox 99% ; bp 10:00 BP 108 / 65; Pulse 76; Resp 23; Pulse Ox 100% ; bp 10:53 Height 6 ft. 0 in. (182.88 cm) (R); bp 11:00 BP 103 / 67; Pulse 93; Resp 24; Pulse Ox 98% ; bp 11:55 BP 96 / 67; Pulse 91; Resp 26; Pulse Ox 99% ; bp 10:53 Body Mass Index 20.34 (68.04 kg, 182.88 cm) bp MDM: 06:19 Patient medically screened. [facility] 06:47 Differential diagnosis: asthma, Bronchitis obstructed airway, tracheal injury, dinae bronchitis, flu, URI. Antibiotic administration: zosyn/ vancomycin. The patient's Wells Deep Vein Thrombosis Score was calculated as follows: Hemoptysis (1.0 Pts). The patient's pulmonary embolism risk score was calculated as follows: hemoptysis (1.0 Pts) malignancy Total Score: 0-2 points. This patient was found to be at low risk for a pulmonary embolism by using the Well's assessment criteria. Immunization status: Pneumococcal vaccine: Influenza vaccine: Data reviewed: vital signs, nurses notes, lab test result(s), EKG, radiologic studies, plain films. Data interpreted: library monitor: rate is 93 beats/min, rhythm is regular, Pulse oximetry: on room air is 95 %. Test interpretation: by ED physician or midlevel provider: ECG, plain radiologic studies. Counseling: I had a detailed discussion with the patient and/or guardian regarding: the historical points, exam findings, and any diagnostic results supporting the discharge/admit diagnosis, lab results. 11/16 06:41 Order name: Basic Metabolic Panel [facility] 11/16 06:41 Order name: CBC with Diff [facility] 11/16 06:41 Order name: LFT's [facility] 11/16 06:41 Order name: Magnesium [facility] 11/16 06:41 Order name: NT PRO-BNP [facility] 11/16 06:41 Order name: PT-INR; Complete Time: 07:28 [facility] 11/16 06:41 Order name: Troponin (emerg Dept Use Only); Complete Time: 07:28 [facility] 11/16 06:41 Order name: Basic Metabolic Panel; Complete Time: 07:28 [facility] 11/16 06:41 Order name: CBC with Automated Diff; Complete Time: 07:28 [facility] 11/16 06:41 Order name: Liver (Hepatic) Function; Complete Time: 07:28 [facility] 11/16 06:41 Order name: Magnesium; Complete Time: 07:28 [facility] 11/16 06:41 Order name: NT PRO-BNP; Complete Time: 07:28 [facility] 11/16 06:41 Order name: XRAY Chest (1 view) [facility] 11/16 06:41 Order name: EKG; Complete Time: 06:42 [facility] 11/16 06:41 Order name: Cardiac monitoring; Complete Time: 06:57 [facility] 11/16 06:41 Order name: EKG - Nurse/Tech; Complete Time: 06:57 [facility] 11/16 06:41 Order name: IV Saline Lock; Complete Time: 06:57 [facility] 11/16 06:41 Order name: Labs collected and sent; Complete Time: 06:57 [facility] 11/16 06:46 Order name: Sputum Culture [facility] 11/16 07:08 Order name: Blood Culture Adult (2) bp 11/16 07:09 Order name: Chest Wo Con CT em1 11/16 08:56 Order name: COVID-19/FLU A+B [facility] 11/16 06:41 Order name: O2 Per Protocol; Complete Time: 06:57 [facility] 11/16 06:41 Order name: O2 Sat Monitoring; Complete Time: 06:57 [facility] EC:01 Rate is 92 beats/min. Rhythm is regular. QRS [place] is Normal. SC interval is normal. QRS diane interval is normal. QT interval is normal. No Q waves. T waves are Normal. No ST changes noted. Clinical impression: NSR w/ Non-specific ST/T Changes and No evidence of ischemia. Interpreted by me. Reviewed by me. Administered Medications: 06:56 Drug: SOLU-Medrol (methylPrednisoLONE) 125 mg Route: IVP; Site: left forearm; lp1 10:20 Follow up: Response: No adverse reaction bp 06:56 Drug: AtroVENT (ipratropium) Aerosol 0.5 mg Route: Inhalation; lp1 06:56 Drug: Pepcid (famotidine) 20 mg Route: IVP; Site: left forearm; lp1 07:08 Follow up: Response: No adverse reaction bp 06:57 Drug: Xopenex (levalbuterol) 3.75 mg Route: Inhalation; lp1 08:00 Drug: Zosyn (piperacillin-tazobactam) 3.375 grams Route: IVPB; Infused Over: 60 mins; bp Site: left forearm; 10:20 Follow up: IV Status: Completed infusion; IV Intake: 100ml bp 10:00 Drug: vancoMYCIN 1 grams Route: IVPB; Infused Over: 2 hrs; Site: left forearm; bp 11:15 Follow up: IV Status: Completed infusion; IV Intake: 250ml bp Disposition: 11/16/20 06:54 Hospitalization ordered by Earl Cornell for Inpatient Admission. Preliminary diagnosis are Tracheostomy status, Tracheostomy complications, Pneumonia, unspecified organism - aspiration, Chronic obstructive pulmonary disease with (acute) exacerbation. - Bed requested for Telemetry/MedSurg (Inpatient). - Status is Inpatient Admission. bp - Condition is Fair. - Problem is new. - Symptoms have improved. Signatures: Dispatcher [employer] [facility] Ajith Jerome MD MD cha Martinez, Eric em1 Linda Garland, RN RN 1 Pete Nagel RN RN bp Corrections: (The following items were deleted from the chart) 08:17 06:42 CORONAVIRUS+MR.LAB.BRZ ordered. EDNC EDMS 08:18 06:42 Influenza Screen (A \T\ B)+BA.LAB.BRZ ordered. [facility] EDNC 11:13 06:54 Hospitalization Ordered by Earl Cornell MD for Inpatient Admission. Preliminary bp diagnosis is Tracheostomy status; Tracheostomy complications; Pneumonia, unspecified organism - aspiration; Chronic obstructive pulmonary disease with (acute) exacerbation. Bed requested for Telemetry/MedSurg (Inpatient). Status is Inpatient Admission. Condition is Fair. Problem is new. Symptoms have improved. [facility] 11:38 11:13 11/16/2020 06:54 Hospitalization Ordered by Earl Cornell MD for Inpatient em1 Admission. Preliminary diagnosis is Tracheostomy status; Tracheostomy complications; Pneumonia, unspecified organism - aspiration; Chronic obstructive pulmonary disease with (acute) exacerbation. Bed requested for [facility] ER HOLD. Status is Inpatient Admission. Condition is Fair. Problem is new. Symptoms have improved. bp 11:39 11:38 11/16/2020 06:54 Hospitalization Ordered by Earl Cornell MD for Inpatient em1 Admission. Preliminary diagnosis is Tracheostomy status; Tracheostomy complications; Pneumonia, unspecified organism - aspiration; Chronic obstructive pulmonary disease with (acute) exacerbation. Bed requested for Telemetry/MedSurg (Inpatient). Status is Inpatient Admission. Condition is Fair. Problem is new. Symptoms have improved. em1 12:47 11:39 11/16/2020 06:54 Hospitalization Ordered by Earl Cornell MD for Inpatient bp Admission. Preliminary diagnosis is Tracheostomy status; Tracheostomy complications; Pneumonia, unspecified organism - aspiration; Chronic obstructive pulmonary disease with (acute) exacerbation. Bed requested for Telemetry/MedSurg (Inpatient). Status is Inpatient Admission. Condition is Fair. Problem is new. Symptoms have improved. em1
[2020-11-16] MEDS ORDERED: METHYLPREDNISOLONE 125 MG INJ ONE (07:04)
[2020-11-16 07:05] LABS: Absolute Lymphocytes (CBC) 1.6 K/uL (0.7-4.9); Basophils % 0.5 % (0-1.3); Lymphocytes % 21.3 % (15.3-44.8); MPV 8.9 fL (7.6-11.3); Protime INR 1.43; RBC Red Blood Cell Count 4.79 M/uL (4.33-5.43)
[2020-11-16] MEDS ORDERED: FAMOTIDINE 20 MG/2 ML VIAL IV ONE (07:05)
[2020-11-16] MEDS ORDERED: IPRATROPIUM BROM 0.5MG/2.5ML ONE (07:05)
[2020-11-16] MEDS ORDERED: LEVALBUTEROL 1.25 MG/3 ML NEB ONE (07:05)
[2020-11-16 07:28] LABS: ALT/SGPT 41 U/L (12-78); AST/SGOT 28 U/L (15-37); Albumin 2.6 g/dL (3.4-5.0); Alkaline Phosphatase 94 U/L (45-117); BUN Blood Urea Nitrogen 13 mg/dL (7-18); Bicarbonate 30 mmol/L (21-32); Bilirubin Direct < 0.1 mg/dL (0-0.2); Bilirubin Total 0.3 mg/dL (0.2-1.0); Glucose Level 76 mg/dL (74-106); Magnesium 2.2 mg/dL (1.8-2.4); NT PRO-BNP 173 pg/mL (<125); Potassium 4.3 mmol/L (3.5-5.1); Protein, Total 8.7 g/dL (6.4-8.2); Sodium Level 137 mmol/L (136-145); Troponin (Emerg Dept Use Only) < 0.02 ng/mL (0.0-0.045)
--- NOTE | 2020-11-16 07:57 | RAD REPORT ---
EXAM DESCRIPTION: RAD - Chest Single View - 11/16/2020 6:57 am CLINICAL HISTORY: COUGH, bleeding or on trach tube, COPD, hypertension, laryngeal carcinoma COMPARISON: Portable October 27, portable October 26 TECHNIQUE: AP portable chest image was obtained 11/16/2020 6:57 am . FINDINGS: Interstitial and alveolar opacities in the right base have increased October 27 examination as residual or recurrent pneumonia. Interstitial markings appear overall to have increased slightly i n could be interstitial edema or infiltrate. Heart size is stable. cardiomediastinal silhouette is distorted by rotation. No change in positionin g of the trach tube. No measurable pleural effusion and no pneumothorax. No acute bony abnormality se en. No acute aortic findings suspected. IMPRESSION: Residual or recurrent right lung base pneumonia. Overall increase in interstitial opacification from edema or infiltrate.
--- NOTE | 2020-11-16 08:06 | RAD REPORT ---
EXAM DESCRIPTION: CT - Thorax Wo Con - 11/16/2020 7:41 am CLINICAL HISTORY: pneumothorax COMPARISON: Thorax Wo Con dated 10/02/2020; Chest Single View dated 11/16/2020 TECHNIQUE: Axial 5 mm thick images of the chest were obtained without IV contrast. All CT scans are performed using dose optimization technique as appropriate and may include automated exposure control or mA/KV adjustment according to patient size. FINDINGS: Patient has a baseline of prominent COPD. The hyper expanded lung moran pattern is not si gnificantly different. B spiculated 10 mm mass in the left lower lobe (image 34/69) has not significa ntly changed from the short interval October 22 study. No long-term comparison is available. This findi ng needs monitoring independent of the right lung field findings with CT imaging in 3-6 months. PET-C T imaging could be delayed; however, the right lung field findings could potentially cause underestim ation of the spiculated nodule activity. Interstitial thickening or opacification in the posterior right upper lobe has not significantly correa ged. Interstitial and alveolar opacification in the base of the right lower lobe and base of the righ t middle lobe worse than prior imaging. Areas of consolidation are present. There is partial opacific ation of the right-sided bronchi. The right-sided pneumonia pattern is not a classic presentation for COVID-19 pneumonia. Both viral and bacterial pneumonia is are possible. No pneumothorax or pleural e ffusion. Mediastinal assessment is limited in the absence of contrast. Nonspecific lymph nodes and granulomato us type calcifications are present similar to comparison. No gross dilatation of the aorta or pulmona ry arterial tree. No cardiomegaly or pericardial effusion. Trach tube is in place. No suspicious finding in the adjacent soft tissues. No chest wall mass or abnormal axillary lymphadenopathy. IMPRESSION: Right lower lobe and right middle lobe pneumonia pattern with lobar mucous plugging. Findings are superimposed on COPD. Both bacterial and viral pneumonias can have this presentation as well as some atypical pneumonia is. Spiculated 10 mm left lower lobe nodule is present and warrants monitoring independent from the infec tious findings. Repeat CT imaging in 3-6 months would be recommended. PET-CT imaging at this time may be misleading. The right lung field PET-CT activity associated with the pneumonia could result in un derestimation of any left lobe nodule activity.
[2020-11-16] MEDS ORDERED: PIPER/TAZO/NS 3.375gm 3.375 GM/100 ML BAG ONE (08:11)
[2020-11-16] MEDS ORDERED: VANCOMYCIN/NS 1 gm 1 GM/250 ML BAG IVPB ONE (08:15)
[2020-11-16 08:56] LABS: SARS-COV-2 RT PCR NEGATIVE (NEGATIVE)
[2020-11-16] MEDS ORDERED: VANCOMYCIN 1 GM/VIAL ONE (10:33)
[2020-11-16] MEDS ORDERED: NA CHLORIDE 0.9% 250 ML ONE (10:33)
[2020-11-16] MEDS ORDERED: VANCOMYCIN/NS 1 gm 1 GM/250 ML BAG IVPB SCH (10:45)
--- NOTE | 2020-11-16 11:03 | P.HP ---
Certification for Inpatient Patient admitted to: Observation With expected LOS: <2 Midnights Patient will require the following post-hospital care: None Practitioner: I am a practitioner with admitting privileges, knowledge of patient current condition, hospital course, and medical plan of care. Services: Services provided to patient in accordance with Admission requirements found in Title 42 Section 412.3 of the Code of Federal Regulations Patient History Date of Service: 11/16/20 Reason for admission: SOB History of Present Illness: Patient is a 70-year-old male a past medical history significant for BPH, Cirrhosis, COPD, Hypertension, Laryngeal CA, squamous cell carcinoma who presents with complaint of shortness of breath and cough. Patient is a resident of a assisted. retirement staff noted that patient had increased secretions from his tracheostomy. retirement staff observed that patient's O2 sat went down to 78% on room air. Symptoms have been ongoing for the past 2 days. Patient denies any other signs and symptoms. Symptoms are aggravated by exertion and relieved by nothing. Patient was brought to the ER due to worsening symptoms. Allergies No Known Allergies Allergy (Verified 10/02/20 11:29) Home Medications: Acetaminophen 650 mg FT BID PRN 10/02/20 Acetylcysteine 3 ml NEB TID 10/02/20 Doxazosin [Cardura*] 4 mg FT DAILY 10/02/20 Famotidine 20 mg FT Q12H 10/02/20 Ipratropium/Albuterol Sulfate [Iprat-Albut 0.5-3(2.5) mg/3 ml] 3 ml IH Q4HP PRN 10/02/20 Multivitamin 1 tab FT DAILY 10/02/20 Scopolamine [Transderm-Scop] 1 patch TD Q72H 10/02/20 Sennosides/Docusate Sodium [Senna Plus 8.6-50 mg Softgel] 8.6 mg FT Q12HP PRN 10/02/20 Fluticasone/Umeclidin/Vilanter [Trelegy Ellipta 100-62.5-25] 1 each IH DAILY #1 blst.w.dev 10/03/20 Folic Acid 1 mg FT DAILY #90 tablet 10/03/20 Thiamine HCl 100 mg FT DAILY #90 tablet 10/03/20 - Past Medical/Surgical History Diabetic: No -: Laryngeal cancer status post tracheostomy/PEG tube -: Hypertension -: Cirrhosis of the liver -: COPD -: bph -: dysphagia -: Tracheostomy -: PEG tube Psychosocial/ Personal History: Patient currently resides in assisted - Family History Father Notes: Extremely difficult understand patient, unable to obtain at this time. - Social History Smoking Status: Former smoker Alcohol use: No CD- Drugs: No Caffeine use: No Place of [facility]idence[facility] Review of Systems General: Unremarkable Eyes: Unremarkable ENT: Unremarkable Respiratory: Cough, Shortness of Breath Cardiovascular: Unremarkable Gastrointestinal: Unremarkable Genitourinary: Unremarkable Musculoskeletal: Unremarkable Integumentary: Unremarkable Neurological: Unremarkable Lymphatics: Unremarkable Physical Examination - Physical Exam General: Alert, Oriented x3, Acute distress HEENT: Atraumatic, PERRLA, Mucous membr. moist/pink, EOMI, Sclerae nonicteric Neck: Supple, 2+ carotid pulse no bruit, No LAD, Without JVD or thyroid abnormality Respiratory: Diminished, Crackles/rales Cardiovascular: No edema, Regular rate/rhythm, Normal S1 S2 Capillary refill: <2 Seconds Gastrointestinal: Normal bowel sounds, Non-distended, No tenderness Musculoskeletal: No clubbing, No swelling, No tenderness Integumentary: No rashes, No breakdown, No tenderness/swelling Neurological: Normal strength at 5/5 x4 extr, Normal affect Lymphatics: No axilla or inguinal lymphadenopathy External genitalia: Deferred Rectal: Deferred - Studies Laboratory Data (last 24 hrs) 11/16/20 06:30: PT 16.5 H, INR 1.43 11/16/20 06:30: WBC 7.60, Hgb 12.4 L, Hct 38.0 L, Plt Count 358 11/16/20 06:30: Sodium 137, Potassium 4.3, BUN 13, Creatinine 0.54 L, Glucose 76, Magnesium 2.2, Total Bilirubin 0.3, AST 28, ALT 41, Alkaline Phosphatase 94 Assessment and Plan - Plan --Pneumonia. As noted on CT imaging. Mucus plugging also noted on CT scan. Lab Technologist consulted. Patient placed on antibiotics, steroids and Neb treatment with Albuterol\Atrovent. Will keep patient NPO pending assessment by speech therapist to r\o possible aspiration. Further management per rack carrier. --Acute respiratory failure with hypoxia. Secondary to pneumonia. Continue current treatment regimen and O2 therapy.. --Acute on chronic COPD exacerbation. Continue current treatment regimen. --BPH. Continue home medication. --Liver cirrhosis. Stable. Continue supportive care. --Hypertension. Stable. Will continue to monitor BP. Continue home medication. --History of laryngeal cancer. Patient has a Hx of dysphagia. Patient has a trache and a peg tube Continue the trache care. Patient uses peg tube for medications. --DVT prophylaxis with Lovenox subQ Discharge Plan: Home Plan to discharge in: 48 Hours - Advance Directives Does patient have a Living Will: No Does patient have a Durable POA for Healthcare: No - Code Status/Comfort Care Code Status Assessed: Yes Code Status: Full Code Critical Care: No
[2020-11-16] MEDS ORDERED: ONDANSETRON 4 MG/2 ML VIAL IV PRN (13:53)
[2020-11-16] MEDS: IPRATROPIUM BROM 0.5MG/2.5ML NEB SCH ×2 (14:34→21:25)
[2020-11-16] MEDS: ENOXAPARIN 40 MG/0.4 ML SQ SCH (15:00)
[2020-11-16] MEDS: METHYLPREDNISOLONE 40 MG INJ IV SCH ×2 (15:54→17:54)
[2020-11-16] MEDS ORDERED: Meropenem 500 MG VIAL IV SCH (17:00)
[2020-11-16] MEDS: Meropenem 500 MG in NA CHLORIDE 0.9% 100 ML IV SCH (17:54)
[2020-11-16] MEDS ORDERED: VANCOMYCIN 1.75 GM in NA CHLORIDE 0.9% 500 ML IVPB ONE (21:00)
[2020-11-17] MEDS: METHYLPREDNISOLONE 40 MG INJ IV SCH ×4 (00:12→17:19)
[2020-11-17] MEDS: Meropenem 500 MG in NA CHLORIDE 0.9% 100 ML IV SCH ×3 (00:12→17:20)
[2020-11-17] MEDS: IPRATROPIUM BROM 0.5MG/2.5ML NEB SCH ×4 (01:50→21:00)
[2020-11-17 06:25] LABS: Arterial Blood Carboxyhemoglob 0.9 % (0-1.5); Blood Gas Oxyhemoglobin 82.4 % (94-97); Blood O2 Saturation 83.8 % (92-98.5)
[2020-11-17 06:25] LABS: Basophils % 0.3 % (0-1.3); Hematocrit 37.3 % (39.6-49.0); Lymphocytes % 6.4 % (15.3-44.8); MPV 8.7 fL (7.6-11.3); RBC Red Blood Cell Count 4.67 M/uL (4.33-5.43)
[2020-11-17 06:39] LABS: BUN Blood Urea Nitrogen 18 mg/dL (7-18); Bicarbonate 25 mmol/L (21-32); Glucose Level 133 mg/dL (74-106); Sodium Level 142 mmol/L (136-145)
--- NOTE | 2020-11-17 06:46 | P.CNS ---
Date of Consult: 11/17/20 I was called at approximately 0530 for dislodged tracheostomy tube. The patient has a history of laryngeal cancer and tracheotomy. He was admitted yesterday for aspiration pneumonia. He was noted during nursing/RT rounds to have the tracheotomy tube partially dislodged. Attempted replacement by RT and PCP team were unsuccessful. Urgent ENT consultation was requested. The patient was in NAD without stridor or retraction. He is cachetic. His cuffless tracheotomy tube is extruding about correction from the neck. The tube is removed completed and the patient re-positioned in a flat, supine posture with slight neck extension. The tracheotomy site is manually opened but applying retraction of the surrounding skin with two fingers. The site appears small but patent with a small amount of granulation tissue at the right superior aspect of the stoma. The tube is then gentle advanced through the opening and secured with velcro ties. Ties should be kept snug enough that two fingers barely fit between the neck and the ties to avoid accidental dislodgement with coughing, etc. Please call Dr Meyers with any further questions or problems.
--- NOTE | 2020-11-17 07:54 | RAD REPORT ---
EXAM DESCRIPTION: Ramon Single View11/17/2020 7:08 am CLINICAL HISTORY: Shortness of breath Evaluate the tracheostomy tube FINDINGS: The tip of the tracheostomy tube does not lie within the trachea. Patient's nurse Chito steve was notified 7:50 a.m. November 17, 2020
[2020-11-17 08:58] LABS: Blood Morphology Comment NOT SEEN (NOT SEEN); Platelet Estimate ADEQ; White Blood Cell Scan OK (OK)
[2020-11-17] MEDS: ENOXAPARIN 40 MG/0.4 ML SQ SCH (09:00)
--- NOTE | 2020-11-17 09:00 | RAD REPORT ---
EXAM DESCRIPTION: Ramon Single View11/17/2020 8:46 am CLINICAL HISTORY: Hypoxia COMPARISON: November 16, 2020 FINDINGS: Right basilar opacities unchanged Lungs are hyperaerated. Heart is normal size. Tracheostomy tube in place. The heart is normal size IMPRESSION: No change in right basilar opacities probably pneumonia
[2020-11-17] MEDS: VANCOMYCIN 1.25 GM in NA CHLORIDE 0.9% 250 ML IVPB SCH ×2 (09:44→21:34)
[2020-11-17 11:33] VITALS: BMI 20.3
--- NOTE | 2020-11-17 12:20 | P.CNS ---
Date of Consult: 11/17/20 Chief Complaint: SOB History of Present Illness: Patient is 70 years of age significant past medical history multiple medical problems does have a tracheostomy secondary to her laryngeal cancer longterm resident was admitted with worsening secretions hypoxemia this recently discha rged home Previous sputum culture shows Pseudomonas and Acinetobacter which was multiple resistant to all the antibiotic Allergies No Known Allergies Allergy (Verified 10/02/20 11:29) Home Medications: Acetaminophen 650 mg FT BID PRN 10/02/20 Acetylcysteine 3 ml NEB TID 10/02/20 Doxazosin [Cardura*] 4 mg FT DAILY 10/02/20 Famotidine 20 mg FT Q12H 10/02/20 Ipratropium/Albuterol Sulfate [Iprat-Albut 0.5-3(2.5) mg/3 ml] 3 ml IH Q4HP PRN 10/02/20 Multivitamin 1 tab FT DAILY 10/02/20 Scopolamine [Transderm-Scop] 1 patch TD Q72H 10/02/20 Sennosides/Docusate Sodium [Senna Plus 8.6-50 mg Softgel] 8.6 mg FT Q12HP PRN 10/02/20 Fluticasone/Umeclidin/Vilanter [Trelegy Ellipta 100-62.5-25] 1 each IH DAILY #1 blst.w.dev 10/03/20 Folic Acid 1 mg FT DAILY #90 tablet 10/03/20 Thiamine HCl 100 mg FT DAILY #90 tablet 10/03/20 - Past Medical/Surgical History Diabetic: No -: Laryngeal cancer status post tracheostomy/PEG tube -: Hypertension -: Cirrhosis of the liver -: COPD -: bph -: dysphagia -: Tracheostomy -: PEG tube Psychosocial/ Personal History: Patient currently resides in longterm - Family History Father Notes: Extremely difficult understand patient, unable to obtain at this time. - Social History Smoking Status: Unknown if ever smoked Alcohol use: No CD- Drugs: No Caffeine use: No Place of Residence: [facility] Review of Systems Respiratory: Cough, Shortness of Breath Physical Examination Temp Pulse Resp BP Pulse Ox 97.3 F 73 19 109/61 97 11/17/20 08:00 11/17/20 08:00 11/17/20 08:00 11/17/20 08:00 11/17/20 08:00 General: Alert, Mild distress Respiratory: Expiratory wheezes Cardiovascular: No edema, Normal S1 S2 Laboratory Data (last 24 hrs) 11/17/20 05:54: Sodium 142, Potassium 4.0, BUN 18, Creatinine 0.61, Glucose 133 H 11/17/20 05:54: WBC 15.80 H D, Hgb 11.9 L, Hct 37.3 L, Plt Count 362 11/16/20 14:20: Triglycerides 80, Cholesterol 192, HDL Cholesterol 59, Cholesterol/HDL Ratio 3.25 - Problems (1) Tracheobronchitis Current Visit: Yes Status: Acute Plan: Patient is 70 years of age admitted with tracheobronchitis Pseudomonas and Acinetobacter resistant to all antibiotics will repeat sputum cultures continue with meropenem and vancomycin for now white count is a little elevated labs reviewed vital signs stable copious secretions may have to consider nebulized antibiotics call us Tim tobramycin or amikacin possibly aztreonam
[2020-11-17] MEDS ORDERED: DOCUSATE SODIUM FT PRN (14:31)
[2020-11-17] MEDS ORDERED: SENNOSIDES FT PRN (14:31)
--- NOTE | 2020-11-17 14:45 | P.PN ---
Subjective Date of Service: 11/17/20 Chief Complaint: SOB Subjective: Other (o/n patient dislodged trach and became more hypoxic. RT and staff unable to re-insert. ENT consulted and replaced without complication. Patient still remained hypoxic and requiring more O2 afterward.) Review of Systems 10-point ROS is otherwise unremarkable Physical Examination - Vital Signs Temperature: 97.4 F Blood Pressure: 97/57 Pulse: 87 Respirations: 19 Pulse Ox (%): 91 - Studies Laboratory Data (last 24 hrs) 11/17/20 05:54: Sodium 142, Potassium 4.0, BUN 18, Creatinine 0.61, Glucose 133 H 11/17/20 05:54: WBC 15.80 H D, Hgb 11.9 L, Hct 37.3 L, Plt Count 362 11/16/20 14:20: Triglycerides 80, Cholesterol 192, HDL Cholesterol 59, Cholesterol/HDL Ratio 3.25 Assessment & Plan Physician Review Additional Text: Physical Exam: Gen: cachectic appearing HEENT: normal conjunctiva, sclera anicteric CV: regular rate/rhythm, no edema Pulm: diffuse crackles bilaterally, diminished at bases. copious secretions Abd: soft, NTND, PEG tube in place, no surrounding erythema/drainage Skin: no rash Neuro: AAOx3, difficult to understand due to trach and secretions Problem List acute hypoxic respiratory failure secondary to RLL/RML pneumonia, likely aspiration pneumonia acute on chronic COPD exacerbation h/o Silent aspiration / dysphagia Liver cirrhosis BPH HTN h/o laryngeal cancer s/p trach -continue broad spectrum antibiotics -pulmonology consulted, may need bronchoscopy if no significant improvement in oxygenation, has copious secretions and mucous plugging noted on CT -continue steroids -confirm home medications, restart -obtain tube feed orders patient was receiving at [facility], consult retail district manager and restart -was discharged last month with strict NPO orders, everything to go through PEG tube -prior sputum culture with significant MDR bacteria, cultures pending at this time -will consider consulting ID pending cultures / if worsening clinical status VTE: lovenox Code: full Dispo: anticipate dc back to [facility] in >48hrs Time Spent Managing Pts Care (In Minutes): 35
[2020-11-17] MEDS: FAMOTIDINE 20 MG TAB FT SCH ×2 (15:53→21:39)
[2020-11-17] MEDS: TWOCAL HN 1,000 ML BOT FT SCH ×2 (16:00→20:00)
[2020-11-18] MEDS: Meropenem 500 MG in NA CHLORIDE 0.9% 100 ML IV SCH ×3 (00:20→18:29)
[2020-11-18] MEDS: METHYLPREDNISOLONE 40 MG INJ IV SCH ×2 (00:20→09:00)
[2020-11-18] MEDS: IPRATROPIUM BROM 0.5MG/2.5ML NEB SCH ×4 (01:40→20:00)
[2020-11-18] MEDS: TWOCAL HN 1,000 ML BOT FT SCH ×3 (04:00→08:00)
[2020-11-18 05:52] LABS: Absolute Lymphocytes (CBC) 0.7 K/uL (0.7-4.9); Basophils % 0.1 % (0-1.3); Hematocrit 36.2 % (39.6-49.0); Lymphocytes % 5.4 % (15.3-44.8); MPV 8.5 fL (7.6-11.3); RBC Red Blood Cell Count 4.53 M/uL (4.33-5.43)
[2020-11-18 06:09] LABS: ALT/SGPT 57 U/L (12-78); AST/SGOT 47 U/L (15-37); Albumin 2.2 g/dL (3.4-5.0); Alkaline Phosphatase 82 U/L (45-117); BUN Blood Urea Nitrogen 24 mg/dL (7-18); Bicarbonate 30 mmol/L (21-32); Bilirubin Total 0.2 mg/dL (0.2-1.0); Glucose Level 109 mg/dL (74-106); Magnesium 2.2 mg/dL (1.8-2.4); Phosphorus 2.6 mg/dL (2.5-4.9); Potassium 4.2 mmol/L (3.5-5.1); Protein, Total 7.4 g/dL (6.4-8.2); Sodium Level 143 mmol/L (136-145)
--- NOTE | 2020-11-18 07:49 | RAD REPORT ---
EXAM DESCRIPTION: RAD - Chest Single View - 11/18/2020 5:50 am CLINICAL HISTORY: pneumonia COMPARISON: November 17 TECHNIQUE: AP portable chest image was obtained 11/18/2020 5:50 am . FINDINGS: Right base infiltrate changes have not progressed or resolved. Minimal medial left base op acification is questionably larger. No change to the trach tube. No failure or volume overload. Heart and vasculature are normal. No measurable pleural effusion and no pneumothorax. No acute bony abnorm ality seen. No acute aortic findings suspected. IMPRESSION: No change to the right base infiltrate from November 17. Questionable increased infiltrate medial left lung base.
[2020-11-18] MEDS: Fluticasone/Umeclidin/Vilanter [Trelegy Ellipta 100-62.5-25] Blst.W.Dev IH SCH (09:00)
[2020-11-18] MEDS: ENOXAPARIN 40 MG/0.4 ML SQ SCH (09:00)
[2020-11-18] MEDS: FOLIC ACID 1 MG TABLET FT SCH (11:18)
[2020-11-18] MEDS: FAMOTIDINE 20 MG TAB FT SCH ×2 (11:24→21:16)
[2020-11-18] MEDS: THIAMINE HCL 100 MG TABLET FT SCH (11:27)
[2020-11-18] MEDS: JEVITY 1.5 CAL LIQUID 1,000 ML BOT FT SCH ×4 (13:00→22:30)
--- NOTE | 2020-11-18 14:46 | P.PN ---
Subjective Date of Service: 11/18/20 Chief Complaint: SOB Patient with copious tracheal secretions. Afebrile. Physical Examination - Vital Signs Temperature: 97.8 F Blood Pressure: 100/52 Pulse: 51 Respirations: 20 Pulse Ox (%): 95 - Physical Exam General: Alert, In no apparent distress Neck: Other (Tracheostomy) Respiratory: Crackles/rales (Bilateral), Other (Upper airway transmitted sounds.) Cardiovascular: Regular rate/rhythm, Normal S1 S2 Gastrointestinal: Normal bowel sounds, Soft and benign, Non-distended, No tenderness Musculoskeletal: No swelling Neurological: Normal strength at 5/5 x4 extr Assessment And Plan Physician Review Additional Text: Problem List acute hypoxic respiratory failure secondary to RLL/RML pneumonia, likely aspiration pneumonia acute on chronic COPD exacerbation h/o Silent aspiration / dysphagia Liver cirrhosis BPH HTN h/o laryngeal cancer s/p trach -continue broad spectrum antibiotics -sputum Gram stain is pending. -pulmonology is following. He may need bronchoscopy if no significant improvement in oxygenation, has copious secretions and mucous plugging -continue steroids -continue home medications -dietitian consulted for tube feeding. -nothing by mouth. Medications, feeding strictly through PEG tube. -prior sputum culture with significant MDR bacteria, sputum cultures pending at this time VTE: lovenox Code: full
[2020-11-18] MEDS: predniSONE 10 MG TAB PO SCH (21:13)
[2020-11-18] MEDS: VANCOMYCIN 1.25 GM in NA CHLORIDE 0.9% 250 ML IVPB SCH (21:13)
[2020-11-18 22:42] LABS: Urine Appearance CLEAR (Clear); Urine Bilirubin NEGATIVE (Negative); Urine Blood NEGATIVE (Negative); Urine Color YELLOW (Yellow); Urine Glucose NEGATIVE (Negative); Urine Protein NEGATIVE (Negative); Urine Specific Gravity 1.025 (1.005-1.030)
[2020-11-18 22:56] LABS: Urine Microscopic Reflex NO UMIC
[2020-11-19] MEDS: ALBUTEROL 2.5 MG/3 ML NEB SOL NEB PRN ×2 (01:25→19:20)
[2020-11-19] MEDS: IPRATROPIUM BROM 0.5MG/2.5ML NEB SCH ×4 (01:30→19:20)
[2020-11-19] MEDS: Meropenem 500 MG in NA CHLORIDE 0.9% 100 ML IV SCH ×3 (01:32→16:44)
[2020-11-19] MEDS ORDERED: ALBUTEROL 2.5 MG/3 ML NEB SOL ONE (01:47)
[2020-11-19 06:30] LABS: Absolute Lymphocytes (CBC) 1.6 K/uL (0.7-4.9); Basophils % 0.3 % (0-1.3); Hematocrit 36.1 % (39.6-49.0); MPV 8.7 fL (7.6-11.3); RBC Red Blood Cell Count 4.53 M/uL (4.33-5.43)
[2020-11-19] MEDS: JEVITY 1.5 CAL LIQUID 1,000 ML BOT FT SCH ×6 (06:47→22:00)
[2020-11-19] MEDS: ENOXAPARIN 40 MG/0.4 ML SQ SCH (09:00)
[2020-11-19] MEDS: Fluticasone/Umeclidin/Vilanter [Trelegy Ellipta 100-62.5-25] Blst.W.Dev IH SCH (09:00)
[2020-11-19] MEDS: FOLIC ACID 1 MG TABLET FT SCH (09:43)
[2020-11-19] MEDS: THIAMINE HCL 100 MG TABLET FT SCH (09:43)
[2020-11-19] MEDS: predniSONE 10 MG TAB PO SCH ×2 (09:43→21:38)
[2020-11-19] MEDS: FAMOTIDINE 20 MG TAB FT SCH ×2 (09:43→21:38)
[2020-11-19 10:29] LABS: BUN Blood Urea Nitrogen 21 mg/dL (7-18); Bicarbonate 31 mmol/L (21-32); Glucose Level 121 mg/dL (74-106); Potassium 4.5 mmol/L (3.5-5.1); Sodium Level 143 mmol/L (136-145)
[2020-11-19] MEDS: VANCOMYCIN 1.25 GM in NA CHLORIDE 0.9% 250 ML IVPB SCH (15:47)
[2020-11-19] MEDS: ACETAMINOPHEN 500 MG TAB PO PRN (16:44)
--- NOTE | 2020-11-19 16:54 | P.PN ---
Subjective Date of Service: 11/19/20 Chief Complaint: SOB Patient with persistent copious tracheal secretions. He is tolerating PEG tube feeding. Physical Examination - Vital Signs Temperature: 99.8 F Blood Pressure: 106/62 Pulse: 87 Respirations: 20 Pulse Ox (%): 92 - Physical Exam General: Alert, In no apparent distress Neck: Other (Tracheostomy) Respiratory: Other (Diffuse upper airway transmitted sounds) Cardiovascular: No edema, Regular rate/rhythm, Normal S1 S2 Gastrointestinal: Soft and benign, Non-distended, No tenderness Musculoskeletal: No swelling Neurological: Other (Awake and alert.) Assessment And Plan Physician Review Additional Text: Problem List acute hypoxic respiratory failure secondary to RLL/RML pneumonia, likely aspiration pneumonia acute on chronic COPD exacerbation h/o Silent aspiration / dysphagia Liver cirrhosis BPH HTN h/o laryngeal cancer s/p trach -continue broad spectrum antibiotics -sputum Gram stain is pending. -pulmonology is following. He may need bronchoscopy if no significant improvement in oxygenation, has persistent copious secretions and mucous plugging -continue steroids -may consider a trial of glycopyrrolate to reduce the tracheal secretions -continue home medications -continue tube feeding. -nothing by mouth. Medications and feeding strictly through PEG tube. -prior sputum culture with significant MDR bacteria, repeat sputum cultures pending. -monitor CBC to follow leukocytosis. VTE: lovenox Code: full
[2020-11-19] MEDS: HYDROCODONE/APAP 5/325 MG TAB PO PRN (21:38)
[2020-11-20] MEDS: Meropenem 500 MG in NA CHLORIDE 0.9% 100 ML IV SCH ×3 (01:40→16:31)
[2020-11-20] MEDS: IPRATROPIUM BROM 0.5MG/2.5ML NEB SCH ×4 (01:40→20:05)
[2020-11-20] MEDS: ALBUTEROL 2.5 MG/3 ML NEB SOL NEB PRN (01:40)
[2020-11-20] MEDS: JEVITY 1.5 CAL LIQUID 1,000 ML BOT FT SCH ×6 (06:17→21:31)
[2020-11-20 06:39] LABS: Basophils % 0.1 % (0-1.3); Hematocrit 35.1 % (39.6-49.0); Lymphocytes % 9.3 % (15.3-44.8); MPV 8.4 fL (7.6-11.3); RBC Red Blood Cell Count 4.42 M/uL (4.33-5.43)
[2020-11-20 07:04] LABS: BUN Blood Urea Nitrogen 14 mg/dL (7-18); Bicarbonate 30 mmol/L (21-32); Glucose Level 85 mg/dL (74-106); Potassium 4.2 mmol/L (3.5-5.1); Sodium Level 139 mmol/L (136-145)
[2020-11-20] MEDS: Fluticasone/Umeclidin/Vilanter [Trelegy Ellipta 100-62.5-25] Blst.W.Dev IH SCH (09:00)
[2020-11-20] MEDS: ENOXAPARIN 40 MG/0.4 ML SQ SCH (09:00)
[2020-11-20] MEDS: FAMOTIDINE 20 MG TAB FT SCH ×2 (09:34→21:31)
[2020-11-20] MEDS: predniSONE 10 MG TAB PO SCH ×2 (09:34→21:31)
[2020-11-20] MEDS: THIAMINE HCL 100 MG TABLET FT SCH (09:34)
[2020-11-20] MEDS: VANCOMYCIN 1.25 GM in NA CHLORIDE 0.9% 250 ML IVPB SCH (09:34)
[2020-11-20] MEDS: FOLIC ACID 1 MG TABLET FT SCH (09:34)
--- NOTE | 2020-11-20 16:01 | P.PN ---
Subjective Date of Service: 11/20/20 Chief Complaint: SOB Patient with persistent copious tracheal secretions. He is tolerating PEG tube feeding. No changes from yesterday Physical Examination - Vital Signs Temperature: 97 F Blood Pressure: 135/69 Pulse: 77 Respirations: 18 Pulse Ox (%): 98 - Physical Exam General: Confused, Other (Awake) Respiratory: Other (Bilateral upper airway transmitted sounds.) Cardiovascular: No edema, Regular rate/rhythm, Normal S1 S2 Gastrointestinal: Normal bowel sounds, Soft and benign, Non-distended, No tenderness Musculoskeletal: No swelling Neurological: Other (Moves all extremities.) Assessment And Plan Physician Review Additional Text: Problem List acute hypoxic respiratory failure secondary to RLL/RML pneumonia, likely aspiration pneumonia acute on chronic COPD exacerbation h/o Silent aspiration / dysphagia Liver cirrhosis BPH HTN h/o laryngeal cancer s/p trach -continue broad spectrum antibiotics -sputum culture growing Gram negative rods. -prior sputum culture with significant MDR bacteria. -pulmonology is following. He may need bronchoscopy if no significant improvement in oxygenation, has persistent copious secretions and mucous plugging -continue steroids -pulmonary considering nebulized antibiotics like tobramycin. -may consider a trial of glycopyrrolate to reduce the tracheal secretions -continue home medications -continue tube feeding. -nothing by mouth. Medications and feeding strictly through PEG tube. -leukocytosis is improving. Monitor CBC. VTE: lovenox Code: full
[2020-11-20] MEDS: HYDROCODONE/APAP 5/325 MG TAB PO PRN (21:31)
[2020-11-21] MEDS: Meropenem 500 MG in NA CHLORIDE 0.9% 100 ML IV SCH (02:09)
[2020-11-21] MEDS: IPRATROPIUM BROM 0.5MG/2.5ML NEB SCH ×4 (02:25→20:50)
[2020-11-21] MEDS: VANCOMYCIN 1.25 GM in NA CHLORIDE 0.9% 250 ML IVPB SCH (03:34)
[2020-11-21] MEDS: HYDROCODONE/APAP 5/325 MG TAB PO PRN ×2 (03:34→21:25)
[2020-11-21 05:59] LABS: Absolute Lymphocytes (CBC) 1.3 K/uL (0.7-4.9); Basophils % 0.2 % (0-1.3); MPV 8.3 fL (7.6-11.3)
[2020-11-21 06:27] LABS: BUN Blood Urea Nitrogen 14 mg/dL (7-18); Bicarbonate 29 mmol/L (21-32); Glucose Level 100 mg/dL (74-106); Potassium 4.5 mmol/L (3.5-5.1); Sodium Level 136 mmol/L (136-145)
[2020-11-21] MEDS: JEVITY 1.5 CAL LIQUID 1,000 ML BOT FT SCH ×5 (06:41→21:24)
[2020-11-21] MEDS: ALBUTEROL 2.5 MG/3 ML NEB SOL NEB PRN ×2 (08:22→13:22)
[2020-11-21] MEDS: Fluticasone/Umeclidin/Vilanter [Trelegy Ellipta 100-62.5-25] Blst.W.Dev IH SCH (09:00)
[2020-11-21] MEDS: ENOXAPARIN 40 MG/0.4 ML SQ SCH (09:00)
[2020-11-21] MEDS: FAMOTIDINE 20 MG TAB FT SCH ×2 (10:37→21:20)
[2020-11-21] MEDS: FOLIC ACID 1 MG TABLET FT SCH (10:37)
[2020-11-21] MEDS: SMZ./TMP. 800/160 MG TABLET PO SCH ×2 (10:37→21:20)
[2020-11-21] MEDS: THIAMINE HCL 100 MG TABLET FT SCH (10:38)
[2020-11-21] MEDS: predniSONE 10 MG TAB PO SCH ×2 (10:38→21:20)
--- NOTE | 2020-11-21 16:20 | P.PN ---
Subjective Date of Service: 11/21/20 Chief Complaint: SOB Patient with persistent copious tracheal secretions. Nursing staff report he desaturated to 67% on oxygen and had to be suctioned multiple times this morning. He is tolerating PEG tube feeding. Physical Examination - Vital Signs Temperature: 97.6 F Blood Pressure: 117/69 Pulse: 116 Respirations: 24 Pulse Ox (%): 81 - Physical Exam General: Other (Awake) Neck: Other (Tracheostomy-collar.) Respiratory: Crackles/rales (Bilateral), Other (Upper airway transmitted sounds) Cardiovascular: No edema, Other (Tachycardia, regular.) Gastrointestinal: Normal bowel sounds, Soft and benign, Non-distended Musculoskeletal: No swelling Neurological: Other (No focal motor deficit.) - Studies Microbiology Data (last 24 hrs): 11/16/20 07:58 Blood - Blood Aerobic Blood Culture - Final No growth in 5 days. 11/16/20 07:58 Blood - Blood Anaerobic Blood Culture - Final No growth in 5 days. 11/16/20 06:30 Blood - Blood Aerobic Blood Culture - Final No growth in 5 days. 11/16/20 06:30 Blood - Blood Anaerobic Blood Culture - Final No growth in 5 days. Assessment And Plan Physician Review Additional Text: Problem List acute hypoxic respiratory failure secondary to RLL/RML pneumonia, likely aspiration pneumonia acute on chronic COPD exacerbation h/o Silent aspiration / dysphagia Liver cirrhosis BPH HTN h/o laryngeal cancer s/p trach -continue broad spectrum antibiotics -sputum culture growing Acinetobacter sensitive to Bactrim. -antibiotics changed to Bactrim. -tracheal suctioning as needed. -continue steroids -trial of Glycopyrrolate. -continue home medications -continue tube feeding. -nothing by mouth. Medications and feeding strictly through PEG tube. -leukocytosis is improving. Monitor CBC. VTE: lovenox Code: full
[2020-11-21] MEDS: GLYCOPYRROLATE 0.2 MG/ML SYR IV SCH (19:29)
[2020-11-22] MEDS: GLYCOPYRROLATE 0.2 MG/ML SYR IV SCH ×2 (00:47→05:53)
[2020-11-22] MEDS: JEVITY 1.5 CAL LIQUID 1,000 ML BOT FT SCH ×6 (02:32→21:34)
[2020-11-22] MEDS: IPRATROPIUM BROM 0.5MG/2.5ML NEB SCH ×4 (02:35→20:45)
[2020-11-22 06:25] LABS: Basophils % 0.2 % (0-1.3); Hematocrit 38.5 % (39.6-49.0); Lymphocytes % 7.7 % (15.3-44.8); MPV 8.3 fL (7.6-11.3); RBC Red Blood Cell Count 4.79 M/uL (4.33-5.43)
[2020-11-22] MEDS: ALBUTEROL 2.5 MG/3 ML NEB SOL NEB PRN ×3 (08:40→20:45)
[2020-11-22] MEDS: ENOXAPARIN 40 MG/0.4 ML SQ SCH (09:00)
[2020-11-22] MEDS: Fluticasone/Umeclidin/Vilanter [Trelegy Ellipta 100-62.5-25] Blst.W.Dev IH SCH (09:00)
[2020-11-22] MEDS: predniSONE 10 MG TAB PO SCH ×2 (09:00→21:33)
[2020-11-22] MEDS: SCOPOLAMINE HYDROBROMIDE PATCH TD SCH (09:00)
[2020-11-22] MEDS: SMZ./TMP. 800/160 MG TABLET PO SCH ×2 (10:23→21:33)
[2020-11-22] MEDS: FOLIC ACID 1 MG TABLET FT SCH (10:23)
[2020-11-22] MEDS: THIAMINE HCL 100 MG TABLET FT SCH (10:24)
[2020-11-22] MEDS: FAMOTIDINE 20 MG TAB FT SCH ×2 (10:24→21:33)
[2020-11-22 10:36] LABS: Blood Morphology Comment NOT SEEN (NOT SEEN); Platelet Estimate ADEQ
--- NOTE | 2020-11-22 10:47 | P.PN ---
Subjective Date of Service: 11/22/20 Chief Complaint: Acinetobacter tracheobronchitis Subjective: Improving (Patient is improving his secretions are declining oxygen requirements also decline E) Physical Examination - Vital Signs Temperature: 98.4 F Blood Pressure: 110/78 Pulse: 91 Respirations: 20 Pulse Ox (%): 99 - Studies Microbiology Data (last 24 hrs): 11/16/20 07:58 Blood - Blood Aerobic Blood Culture - Final No growth in 5 days. 11/16/20 07:58 Blood - Blood Anaerobic Blood Culture - Final No growth in 5 days. 11/16/20 06:30 Blood - Blood Aerobic Blood Culture - Final No growth in 5 days. 11/16/20 06:30 Blood - Blood Anaerobic Blood Culture - Final No growth in 5 days. Assessment & Plan - Problems (Diagnosis) (1) Tracheobronchitis Current Visit: Yes Status: Acute Plan: Patient's condition is improving titrate O2 down about 90% continue with Bactrim for 2 weeks once is O2 is down to 90% can be discharged home
--- NOTE | 2020-11-22 12:25 | P.PN ---
Subjective Date of Service: 11/22/20 Chief Complaint: Acinetobacter tracheobronchitis Patient with persistent copious tracheal secretions. Patient is currently comfortable without the oxygen mask on the trach. He is tolerating PEG tube feeding. Physical Examination - Vital Signs Temperature: 98.4 F Blood Pressure: 110/78 Pulse: 91 Respirations: 20 Pulse Ox (%): 99 - Physical Exam General: Alert, In no apparent distress Neck: JVD not distended Respiratory: Crackles/rales (Bilateral crackles, bilateral upper airway transmitted sounds.) Cardiovascular: No edema, Regular rate/rhythm, Normal S1 S2 Gastrointestinal: Soft and benign, Non-distended, No tenderness Musculoskeletal: No swelling Neurological: Other (No focal motor deficit.) - Studies Microbiology Data (last 24 hrs): 11/16/20 07:58 Blood - Blood Aerobic Blood Culture - Final No growth in 5 days. 11/16/20 07:58 Blood - Blood Anaerobic Blood Culture - Final No growth in 5 days. 11/16/20 06:30 Blood - Blood Aerobic Blood Culture - Final No growth in 5 days. 11/16/20 06:30 Blood - Blood Anaerobic Blood Culture - Final No growth in 5 days. Assessment And Plan Physician Review Additional Text: Problem List acute hypoxic respiratory failure secondary to RLL/RML pneumonia, likely aspiration pneumonia acute on chronic COPD exacerbation h/o Silent aspiration / dysphagia Liver cirrhosis BPH HTN h/o laryngeal cancer s/p trach -sputum culture growing Acinetobacter sensitive to Bactrim. -antibiotics changed to Bactrim. -tracheal suctioning as needed. -have instructed the nursing staff to teach the patient how to suction from his tracheostomy. -continue steroids -trial of Glycopyrrolate. -continue home medications -continue tube feeding. -nothing by mouth. Medications and feeding strictly through PEG tube. - Monitor CBC. VTE: lovenox Code: full
[2020-11-23] MEDS: JEVITY 1.5 CAL LIQUID 1,000 ML BOT FT SCH ×6 (01:00→21:00)
[2020-11-23] MEDS: IPRATROPIUM BROM 0.5MG/2.5ML NEB SCH ×4 (02:15→20:30)
[2020-11-23] MEDS: ALBUTEROL 2.5 MG/3 ML NEB SOL NEB PRN ×4 (02:15→20:30)
[2020-11-23 06:36] LABS: Absolute Lymphocytes (CBC) 1.3 K/uL (0.7-4.9); Basophils % 0.2 % (0-1.3); Hematocrit 40.2 % (39.6-49.0); Lymphocytes % 6.9 % (15.3-44.8); MPV 8.4 fL (7.6-11.3); RBC Red Blood Cell Count 5.07 M/uL (4.33-5.43)
[2020-11-23 06:47] LABS: BUN Blood Urea Nitrogen 17 mg/dL (7-18); Bicarbonate 33 mmol/L (21-32); Glucose Level 100 mg/dL (74-106); Sodium Level 135 mmol/L (136-145)
[2020-11-23 07:47] LABS: Blood Morphology Comment NOT SEEN (NOT SEEN); Platelet Estimate INCR
[2020-11-23] MEDS: FAMOTIDINE 20 MG TAB FT SCH ×2 (09:00→21:00)
[2020-11-23] MEDS: SMZ./TMP. 800/160 MG TABLET PO SCH ×2 (09:00→21:00)
[2020-11-23] MEDS: FOLIC ACID 1 MG TABLET FT SCH (09:00)
[2020-11-23] MEDS: predniSONE 10 MG TAB PO SCH ×2 (09:00→21:00)
[2020-11-23] MEDS: THIAMINE HCL 100 MG TABLET FT SCH (09:00)
[2020-11-23] MEDS: ENOXAPARIN 40 MG/0.4 ML SQ SCH (09:00)
[2020-11-23] MEDS: Fluticasone/Umeclidin/Vilanter [Trelegy Ellipta 100-62.5-25] Blst.W.Dev IH SCH (09:00)
--- NOTE | 2020-11-23 12:39 | P.PN ---
Subjective Date of Service: 11/23/20 Chief Complaint: Acinetobacter tracheobronchitis Patient with persistent copious tracheal secretions. Patient pulled out his PEG tube today. Physical Examination - Vital Signs Temperature: 98.8 F Blood Pressure: 120/69 Pulse: 103 Respirations: 20 Pulse Ox (%): 100 - Physical Exam General: Confused, Other (Awake) Neck: Other (Tracheostomy) Respiratory: Crackles/rales (Bilateral, ), Other (bilateral upper airway transmitted sounds.) Cardiovascular: Regular rate/rhythm, Normal S1 S2 Gastrointestinal: Soft and benign, Non-distended, Other (PEG tube stoma-clean) Musculoskeletal: No contractures Neurological: Other (Nonfocal) Assessment And Plan Physician Review Additional Text: Problem List acute hypoxic respiratory failure secondary to RLL/RML pneumonia, likely aspiration pneumonia acute on chronic COPD exacerbation h/o Silent aspiration / dysphagia Liver cirrhosis BPH HTN h/o laryngeal cancer s/p trach -sputum culture growing Acinetobacter sensitive to Bactrim. -continue Bactrim. -tracheal suctioning as needed. -have instructed the nursing staff to teach the patient how to suction from his tracheostomy. -continue steroids -trial of Glycopyrrolate. -continue home medications -GI consult for PEG tube reinsertion -nothing by mouth. Medications and feeding strictly through PEG tube. - Monitor CBC. VTE: lovenox Code: full
--- NOTE | 2020-11-23 12:56 | RAD REPORT ---
EXAM DESCRIPTION: CT - Chest For Pe Angio - 11/23/2020 12:28 pm CLINICAL HISTORY: Shortness of breath COMPARISON: November 16, 2020 TECHNIQUE: Dynamically enhanced axial 3 mm thick images of the chest were obtained during administra tion of <100> mL Isovue 370 IV contrast. Coronal and oblique reconstruction images were generated and reviewed. Exam utilizes a protocol for optimal evaluation of pulmonary arterial tree. Maximum intensity projections 3D imaging was utilized All CT scans are performed using dose optimization technique as appropriate and may include automated exposure control or mA/KV adjustment according to patient size. FINDINGS: A pulmonary embolus is not seen. A thoracic aortic aneurysm is not noted. A pleural effusion is not seen. A pericardial effusion is not seen. A right lower lobe mucus plugging within bronchi. Progression and right lower lobe consolidation. Add itional reticular opacities right middle lobe. Development of left lower lobe consolidation. Resolution of the left lung nodule IMPRESSION: Negative for a pulmonary embolism. Bilateral lower lobe consolidation
[2020-11-23] MEDS: D5 0.9 NS 1,000 ML IV SCH (16:00)
[2020-11-24] MEDS: JEVITY 1.5 CAL LIQUID 1,000 ML BOT FT SCH ×6 (01:00→22:12)
[2020-11-24] MEDS: IPRATROPIUM BROM 0.5MG/2.5ML NEB SCH ×4 (02:40→19:45)
[2020-11-24] MEDS: ALBUTEROL 2.5 MG/3 ML NEB SOL NEB PRN ×2 (02:41→13:55)
[2020-11-24 03:56] LABS: Absolute Lymphocytes (CBC) 1.2 K/uL (0.7-4.9); Basophils % 0.6 % (0-1.3); Hematocrit 40.6 % (39.6-49.0); Lymphocytes % 9.4 % (15.3-44.8); RBC Red Blood Cell Count 5.03 M/uL (4.33-5.43)
[2020-11-24 04:21] LABS: BUN Blood Urea Nitrogen 16 mg/dL (7-18); Bicarbonate 33 mmol/L (21-32); Glucose Level 119 mg/dL (74-106); Potassium 4.7 mmol/L (3.5-5.1); Sodium Level 136 mmol/L (136-145)
[2020-11-24] MEDS: D5 0.9 NS 1,000 ML IV SCH ×2 (05:17→17:34)
[2020-11-24] MEDS: FOLIC ACID 1 MG TABLET FT SCH (09:00)
[2020-11-24] MEDS: Fluticasone/Umeclidin/Vilanter [Trelegy Ellipta 100-62.5-25] Blst.W.Dev IH SCH (09:00)
[2020-11-24] MEDS: SMZ./TMP. 800/160 MG TABLET PO SCH ×2 (09:00→22:08)
[2020-11-24] MEDS: THIAMINE HCL 100 MG TABLET FT SCH (09:00)
[2020-11-24] MEDS: predniSONE 10 MG TAB PO SCH ×2 (09:00→22:08)
[2020-11-24] MEDS: FAMOTIDINE 20 MG TAB FT SCH ×2 (09:00→22:08)
[2020-11-24] MEDS: ENOXAPARIN 40 MG/0.4 ML SQ SCH (09:00)
[2020-11-24] MEDS ORDERED: LIDOCAINE 1% MPF 5 ML VIAL ONE (11:33)
[2020-11-24] MEDS ORDERED: NA CHLORIDE 0.9% 500 ML ONE (11:33)
[2020-11-24] MEDS ORDERED: propofoL 200 MG/20 ML VIAL IV ONE (11:33)
[2020-11-24] MEDS ORDERED: CEFAZOLIN/SWI 1gm 1 GM/10 ML SYR ONE (11:34)
--- NOTE | 2020-11-24 12:07 | ENDO RPT ---
[address], [address] EGD WITH PEG PROCEDURE REPORT EXAM DATE: 11/24/2020 PATIENT NAME: Abilio Torrez MR #: [id number] BIRTHDATE: 1950 ATTENDING: Abilio Brooks Dr STATUS: inpatient - 7 SPINDLE CARVER: Romelia Villa RN and Shelly Washburn CST INDICATIONS: The patient is a 70 yr old Male here for an EGD with PEG due to dysphagia and risk of malnutrition, prior PEG tube pulled out by patient PROCEDURE PERFORMED: EGD with PEG placement MEDICATIONS: Per Anesthesia. TOPICAL ANESTHETIC: none CONSENT: The patient understands the risks and benefits of the procedure and understands that these risks include, but are not limited to: sedation, allergic reaction, infection, perforation and/or bleeding. Alternative means of evaluation and treatment include, among others: physical exam, x-rays, and/or surgical intervention. The patient elects to proceed with this endoscopic procedure. DESCRIPTION OF PROCEDURE: During intra-op preparation period all mechanical medical equipment was checked for proper function. Hand hygiene and appropriate measures for infection prevention was taken. After the risks, benefits and alternatives of the procedure were thoroughly explained, Informed consent was verified, confirmed and timeout was successfully executed by the treatment team. The patient was anesthetized with topical anesthesia and the Pentax EG-2990i ([id number]) endoscope was introduced through the mouth and advanced to the bulb of duodenum. The instrument was slowly withdrawn as the mucosa was fully examined. A moderate sized hiatal hernia was found Post-operative change was noted in the body of the stomach. An erosion was found in the antrum. Duodenitis was found in the bulb of the duodenum. Multiple erosions were found in the bulb of the duodenum. Multiple ulcers were found in the bulb of the duodenum. The stomach was then inflated with air, and by a combination of transillumination and manual palpation, the site for the prior gastrostomy tube placement / stoma was identified on the anterior abdominal wall. The skin of the anterior abdomen was surgically prepped and draped with sterile towels. Utilizing strict sterile technique, the insertion wire was passed through the stoma and into the stomach lumen. The snare was positioned to snare the insertion wire. The snare was then pulled up to the endoscope distal tip, and the scope was then withdrawn bringing with it the snare and insertion wire. The insertion wire was then released from the snare, and the PEG PUSH gastrostomy tube placed over the guidewire. Using the push technique, the tube was then pushed into place over the insertion wire at the abdominal wall end. The tube insertion site was then cleansed once again, and the external bolster was placed over the tube to secure it to the abdominal wall. A sterile dressing was then applied, and the procedure terminated. Retroflexed views revealed a moderate sized hiatal hernia. The gastroscope was then slowly withdrawn and removed. ADVERSE EVENT: There were no complications. IMPRESSIONS: 1. Status post 20 Fr percutaneous endoscopic gastrostomy 2. Moderate sized hiatal hernia 3. Post-operative change / old PEG stoma in the body of the stomach 4. Erosion in the antrum (no biopsy on Lovenox) 5. Duodenitis in the bulb of the duodenum 6. Multiple erosions in the bulb of the duodenum 7. Multiple (3) small 2 mm shallow clean-based ulcers in the bulb of the duodenum RECOMMENDATIONS: 1. begin PEG use in 3 hours 2. check helicobacter pylori status, treat as indicated 3. acid suppression therapy REPEAT EXAM: Abilio Brooks Dr eSigned: Abilio Brooks Dr 11/24/2020 12:07 PM cc: CPT CODES: ICD9 CODES: PATIENT NAME: Abilio Torrez MR#: [id number]
--- NOTE | 2020-11-24 13:02 | P.PN ---
Subjective Date of Service: 11/24/20 Chief Complaint: Acinetobacter tracheobronchitis Patient with persistent copious tracheal secretions. Patient pulled out his PEG tube yesterday. No issues overnight. Physical Examination - Vital Signs Temperature: 97.2 F Blood Pressure: 121/67 Pulse: 97 Respirations: 28 Pulse Ox (%): 89 - Physical Exam General: In no apparent distress, Confused Neck: Other (Tracheostomy-collar) Respiratory: Crackles/rales (Bilateral) Cardiovascular: No edema, Regular rate/rhythm, Normal S1 S2 Gastrointestinal: Soft and benign, Non-distended, No tenderness Musculoskeletal: No swelling Neurological: Other (No focal motor deficit) Assessment And Plan Physician Review Additional Text: Problem List acute hypoxic respiratory failure secondary to RLL/RML pneumonia, likely aspiration pneumonia acute on chronic COPD exacerbation h/o Silent aspiration / dysphagia Liver cirrhosis BPH HTN h/o laryngeal cancer s/p trach -sputum culture growing Acinetobacter sensitive to Bactrim. -continue Bactrim. -tracheal suctioning as needed. -have instructed the nursing staff to teach the patient how to suction from his tracheostomy. -continue steroids -Glycopyrrolate p.r.n. for excessive tracheal secretion. -CT chest-worsening pneumonia and right lower lobe bronchi mucus plugging. -pulmonary to follow. -chest physiotherapy as tolerated. -continue home medications -seen by GI. PEG tube reinserted. EGD shows erosions and ulcers in the gastric mucosa and duodenum. -start PPI. -Helicobacter screen. -resume PEG tube feeding and medications. -nothing by mouth. Medications and feeding strictly through PEG tube. - Monitor CBC. VTE: lovenox Code: full
--- NOTE | 2020-11-24 16:23 | CON ---
Date of Consultation: 11/24/2020 Reason For Consultation: PEG tube management, the patient pulled PEG tube out last night. History Of Present Illness: The patient is a 70-year-old male with history of hyper tension, laryngeal squamous cell cancer, status post trach, cirrhosis, COPD, benign prostatic hypertr ophy, and PEG tube placement in the past with multifocal pneumonia, predominantly right lower lobe re cently. The patient presented to the hospital with shortness of breath, was admitted for worsening p neumonia predominantly in the right lower lobe of the lungs, but multifocal. The patient pulled his PEG tube out last night. Staff including electrician helper powerhouse unable to replace the tube in despite mult iple attempts. GI was called for difficult replacement of PEG tube. There has been no melena, hemat ochezia, hematemesis, coffee-ground emesis, hematuria, dysuria, polydipsia, chest pain, muscle aches, joint aches, backaches. Past Medical History: Significant for hypertension, benign prostatic hypertrophy, cirrhosis, COPD, l aryngeal squamous cell cancer, status post tracheostomy and PEG tube placement in the past. He also has a history of multifocal pneumonia on recent admission approximately 3 to 4 weeks ago and now back for recurrent and continued infection that did not improve. Medications: At home include Tylenol, Mucomyst, Cardura, famotidine, Atrovent inhaler, multivitamin, scopolamine patch, senna, Trelegy Ellipta, folic acid, thiamine. Allergies: NKDA. Social History: He lives at a custodial. Former smoker. No alcohol. Family History: Unobtainable from this patient. Review of Systems: The patient has shortness of breath, dysphagia. Denies any melena, hematochezia, hematemesis, coffee -ground emesis, hematuria, dysuria, polydipsia, chest pain, muscle aches, joint aches, backaches, hem optysis, hematuria, dysuria, polydipsia. Physical Examination: Vital Signs: Temperature is 97.8 degrees Fahrenheit, pulse 101, respirations 20, blood pressure 108/ 66, O2 saturation anywhere from 89% to 99% by chart review. General: He is a thin, slightly cachectic male, lying in bed, no acute distress. HEENT: Normocephalic, atraumatic. Anicteric. Pupils equal, round, and reactive to light. Extraocu lar movements intact. Oropharynx clear. Neck: Supple. No masses. Respirations: Clear to auscultation bilaterally. Cardiac: Regular rate and rhythm. No gallops. Abdomen: Positive bowel sounds. Soft, nontender, and nondistended. No hepatosplenomegaly. PEG sto ma site seems largely closed. Unable to see any clear opening to the stomach and seems like this may be the problem for the electrician helper powerhouse, but no peritoneal or Antoine sign. No rebound or guarding. Extremities: No clubbing, cyanosis, or edema. 2+ pulses. Neuro: Alert and oriented x1. He does respond to verbal commands so really cannot say oriented, but able to move all extremities somewhat. Laboratory Data: The patient has a white count of 13.1 down from 19.1 yesterday, hemoglobin of 12.9, hematocrit 41, MCV of 81, platelet count of 383, polys of 70%, lymphocytes 9%, monocytes 12%. He muir s a PT of 16.5, INR of 1.43. Blood gas shows a pH of 7.45, pO2 of 39, oxygen saturation 82%, O2 satu ration 84% on 100% FiO2. Sodium of 136, potassium 4.7, chloride 99, BUN of 16, bicarb 33, glucose 11 9, calcium 10.0. On the , the patient had an AST of 47, ALT 57, alkaline phosphatase 82, magnesi um 2.2, total protein 7.4, albumin 2.2, globulin 5.2, phosphorus 2.6, C-reactive protein of 39.4. Tr lizbet ketones. Serum alcohol level really high and COVID-19 testing on the was negativ e as was influenza A and B testing. CT chest yesterday revealed bilateral lower lobe consolidation c onsistent with his prior pneumonia, this is like right lower lobe mucous plugging within bronchi, pro gression of right lower lobe consolidation, development of left lower lobe consolidation as well and some additional reticular opacities in the right middle lobe. Impression: 1.PEG tube pulled out last night. Staff include electrician helper powerhouse unable to replace PEG tube at beds sheyla, we will proceeded with GI evaluation and possible EGD with PEG tube placement. 2.Dysphagia, increase risk for malnutrition. Already, albumin is down to 2.2. 3.Protein-calorie malnutrition, albumin 2.2. Will need PEG tube with enteral nutrition, had to repl lizbet that and also have some type of restraint in order to prevent the patient from pulling PEG out ag ain once replaced. 4.Dysphagia with increased risk of malnutrition. 5.Pneumonia, multifocal, predominant in the right lower lobe as stated above. A CT done yesterday. 6.Cirrhosis of the liver. Albumin 2.2, but globulin 5.2, possibly indicative of autoimmune disease. We will check other autoimmune type markers like ALT, ALK, ERIK, anti-smooth muscle antibody, and ot hers. Consider liver biopsy in this patient, but with his poor clinical status, we will discuss with the patient and primary care. Also, his sedimentation rate is high at 39. If no other source such as arthritis or other inflammation is present, will have to consider that this may be due to his auto immune liver disease or other. Recommendations: 1.Proceed with EGD with PEG tube placement. 2.Check prealbumin. 3.Continue IV fluids and IV antibiotics as the patient has pneumonia. 4.Check other autoimmune markers such as ERIK, anti-smooth muscle antibody, anti-LKM. The patient malena maciel have an autoimmune, etiology for possible cirrhosis of the liver. TRIP/MODL Voice ID: [id number] Report ID: [id number]
[2020-11-24] MEDS: HYDROCODONE/APAP 5/325 MG TAB PO PRN (22:08)
[2020-11-25] MEDS: JEVITY 1.5 CAL LIQUID 1,000 ML BOT FT SCH ×6 (01:00→21:03)
[2020-11-25] MEDS: IPRATROPIUM BROM 0.5MG/2.5ML NEB SCH ×4 (01:35→19:25)
[2020-11-25 04:37] LABS: Absolute Lymphocytes (CBC) 0.6 K/uL (0.7-4.9); Basophils % 0.2 % (0-1.3); Hematocrit 35.8 % (39.6-49.0); Lymphocytes % 3.3 % (15.3-44.8); MPV 8.2 fL (7.6-11.3); RBC Red Blood Cell Count 4.46 M/uL (4.33-5.43)
[2020-11-25 04:57] LABS: ALT/SGPT 58 U/L (12-78); AST/SGOT 26 U/L (15-37); Alkaline Phosphatase 106 U/L (45-117); BUN Blood Urea Nitrogen 16 mg/dL (7-18); Bicarbonate 34 mmol/L (21-32); Bilirubin Total 0.2 mg/dL (0.2-1.0); Glucose Level 102 mg/dL (74-106); Protein, Total 7.2 g/dL (6.4-8.2); Sodium Level 137 mmol/L (136-145)
[2020-11-25] MEDS: Fluticasone/Umeclidin/Vilanter [Trelegy Ellipta 100-62.5-25] Blst.W.Dev IH SCH (09:00)
[2020-11-25] MEDS: ENOXAPARIN 40 MG/0.4 ML SQ SCH (09:00)
[2020-11-25] MEDS: D5 0.9 NS 1,000 ML IV SCH (10:20)
[2020-11-25] MEDS: FAMOTIDINE 20 MG TAB FT SCH ×2 (10:21→21:02)
[2020-11-25] MEDS: PANTOPRAZOLE 40 MG INJ IVP SCH (10:21)
[2020-11-25] MEDS: SMZ./TMP. 800/160 MG TABLET PO SCH ×2 (10:21→21:02)
[2020-11-25] MEDS: FOLIC ACID 1 MG TABLET FT SCH (10:21)
[2020-11-25] MEDS: THIAMINE HCL 100 MG TABLET FT SCH (10:22)
[2020-11-25] MEDS: predniSONE 10 MG TAB PO SCH ×2 (10:22→21:02)
[2020-11-25] MEDS: SCOPOLAMINE HYDROBROMIDE PATCH TD SCH (10:24)
--- NOTE | 2020-11-25 13:01 | P.PN ---
Subjective Date of Service: 11/25/20 Chief Complaint: Acinetobacter tracheobronchitis Physical Examination - Vital Signs Temperature: 97.3 F Blood Pressure: 109/59 Pulse: 89 Respirations: 20 Pulse Ox (%): 84 Assessment & Plan Physician Review Additional Text: Physical Exam General: In no apparent distress, slight confusion, difficult to understand, cachectic Neck: Tracheostomy-collar, lots of secretions Respiratory: Crackles/rales bilaterally at bases Cardiovascular: No edema, Regular rate/rhythm, Normal S1 S2 Gastrointestinal: Soft and benign, Non-distended, No tenderness Musculoskeletal: No swelling Neurological: No focal motor deficit Problem List acute hypoxic respiratory failure secondary to RLL/RML pneumonia, likely aspiration pneumonia acute on chronic COPD exacerbation h/o Silent aspiration / dysphagia Liver cirrhosis BPH HTN h/o laryngeal cancer s/p trach -sputum culture growing Acinetobacter sensitive to Bactrim. continue Bactrim. -tracheal suctioning as needed. - requiring frequent suctioning -occasionally desaturating, likely from mucus plugging -continue steroids, scopolamine patch -will add sublingual atropine -pulmonary following - will discuss further today -chest physiotherapy as tolerated. -continue home medications -seen by GI. PEG tube reinserted. EGD shows erosions and ulcers in the gastric mucosa and duodenum. started PPI. Helicobacter screen. -resumed PEG tube feeding and medications. -nothing by mouth. Medications and feeding strictly through PEG tube. VTE: lovenox Code: full Dispo: requiring constant suctioning for copious amounts of secretions, mucus plugging, anticipate hospitalization >2 days Time Spent Managing Pts Care (In Minutes): 35
[2020-11-25] MEDS: ATROPINE 1% OPTH DROPS 5ML SL PRN (16:26)
[2020-11-25] MEDS: ALBUTEROL 2.5 MG/3 ML NEB SOL NEB PRN (19:25)
[2020-11-26] MEDS: JEVITY 1.5 CAL LIQUID 1,000 ML BOT FT SCH ×6 (00:48→20:14)
[2020-11-26] MEDS: IPRATROPIUM BROM 0.5MG/2.5ML NEB SCH ×4 (01:05→21:05)
[2020-11-26 04:06] LABS: Absolute Lymphocytes (CBC) 0.8 K/uL (0.7-4.9); Basophils % 0.2 % (0-1.3); Hematocrit 35.4 % (39.6-49.0); Lymphocytes % 6.1 % (15.3-44.8); MPV 8.8 fL (7.6-11.3)
[2020-11-26 04:29] LABS: ALT/SGPT 63 U/L (12-78); AST/SGOT 35 U/L (15-37); Alkaline Phosphatase 116 U/L (45-117); BUN Blood Urea Nitrogen 14 mg/dL (7-18); Bicarbonate 30 mmol/L (21-32); Bilirubin Total 0.2 mg/dL (0.2-1.0); Glucose Level 129 mg/dL (74-106); Potassium 4.4 mmol/L (3.5-5.1); Protein, Total 7.4 g/dL (6.4-8.2); Sodium Level 136 mmol/L (136-145)
[2020-11-26] MEDS: ALBUTEROL 2.5 MG/3 ML NEB SOL NEB PRN (08:02)
[2020-11-26] MEDS: THIAMINE HCL 100 MG TABLET FT SCH (08:40)
[2020-11-26] MEDS: FAMOTIDINE 20 MG TAB FT SCH ×2 (08:40→20:14)
[2020-11-26] MEDS: PANTOPRAZOLE 40 MG INJ IVP SCH (08:40)
[2020-11-26] MEDS: SMZ./TMP. 800/160 MG TABLET PO SCH ×2 (08:40→20:14)
[2020-11-26] MEDS: FOLIC ACID 1 MG TABLET FT SCH (08:40)
[2020-11-26] MEDS: predniSONE 10 MG TAB PO SCH ×2 (08:40→20:14)
[2020-11-26] MEDS: ENOXAPARIN 40 MG/0.4 ML SQ SCH (08:41)
[2020-11-26] MEDS: Fluticasone/Umeclidin/Vilanter [Trelegy Ellipta 100-62.5-25] Blst.W.Dev IH SCH (08:41)
[2020-11-26] MEDS: SODIUM CHLORIDE 0.9% 10ML INJ IV PRN (08:42)
--- NOTE | 2020-11-26 10:08 | RAD REPORT ---
EXAM DESCRIPTION: RAD - Chest Single View - 11/26/2020 6:53 am CLINICAL HISTORY: hypoxia, pneumonia, mucous plugging Chest pain. COMPARISON: Chest Single View dated 11/18/2020; Chest Single View dated 11/17/2020; Chest Single View dated 11/17/2020; Chest Single View dated 11/16/2020; Chest For Pe Angio dated 11/23/2020 FINDINGS: Portable technique limits examination quality. Emphysematous changes are present throughout the lungs with mild linear opacities in both lung bases likely representing consolidation/pneumonia. Overall, basilar lung aeration appears mildly worse on t he right. The heart is moderately enlarged. Tracheostomy tube is unchanged in position. IMPRESSION: Mild worsening in bibasilar lung opacities since 11/18/2020, particularly in the right b ase.
--- NOTE | 2020-11-26 10:24 | P.PN ---
Subjective Date of Service: 11/26/20 Chief Complaint: Dysphagia, protein-calorie malnutrition, Acinetobacter tracheobronchitis Subjective: Improving (S/p PEG replacement 2 days ago and tolerating TFs.) Review of Systems 10-point ROS is otherwise unremarkable General: Weakness Physical Examination - Vital Signs Temperature: 97.6 F Blood Pressure: 96/58 Pulse: 92 Respirations: 19 Pulse Ox (%): 92 - Physical Exam General: Alert, In no apparent distress, Cachectic HEENT: Atraumatic, Normocephalic, PERRLA, EOMI Neck: Supple Cardiovascular: Normal pulses Gastrointestinal: Soft and benign, No tenderness, No rebound, No guarding Assessment And Plan - Current Problems (Diagnosis) (1) Dysphagia Current Visit: Yes Status: Acute (2) Protein calorie malnutrition Current Visit: Yes Status: Acute Comment: Albumin 2.0 (3) Tracheobronchitis Current Visit: Yes Status: Acute (4) Cirrhosis of liver Current Visit: No Status: Acute (5) HTN (hypertension) Current Visit: No Status: Acute (6) Laryngeal cancer Current Visit: No Status: Acute (7) Pneumonia Current Visit: No Status: Acute Qualifiers: Pneumonia type: due to unspecified organism Laterality: unspecified laterality Lung location: unspecified part of lung Qualified Code(s): J18.9 - Pneumonia, unspecified organism (8) Duodenitis Current Visit: Yes Status: Acute (9) Duodenal ulcer disease Current Visit: Yes Status: Acute (10) Duodenal erosion Current Visit: Yes Status: Acute - Plan REC: 1) continue PEG TFs with increase for wt gain 2) check pre-albumin 3) continue PPI therapy 4) await HP status and treat if positive Physician Review Additional Text: Physical Exam General: In no apparent distress, slight confusion, difficult to understand, cachectic Neck: Tracheostomy-collar, lots of secretions Respiratory: Crackles/rales bilaterally at bases Cardiovascular: No edema, Regular rate/rhythm, Normal S1 S2 Gastrointestinal: Soft and benign, Non-distended, No tenderness Musculoskeletal: No swelling Neurological: No focal motor deficit Problem List acute hypoxic respiratory failure secondary to RLL/RML pneumonia, likely aspiration pneumonia acute on chronic COPD exacerbation h/o Silent aspiration / dysphagia Liver cirrhosis BPH HTN h/o laryngeal cancer s/p trach -sputum culture growing Acinetobacter sensitive to Bactrim. continue Bactrim. -tracheal suctioning as needed. - requiring frequent suctioning -occasionally desaturating, likely from mucus plugging -continue steroids, scopolamine patch -will add sublingual atropine -pulmonary following - will discuss further today -chest physiotherapy as tolerated. -continue home medications -seen by GI. PEG tube reinserted. EGD shows erosions and ulcers in the gastric mucosa and duodenum. started PPI. Helicobacter screen. -resumed PEG tube feeding and medications. -nothing by mouth. Medications and feeding strictly through PEG tube. VTE: lovenox Code: full Dispo: requiring constant suctioning for copious amounts of secretions, mucus p lugging, anticipate hospitalization >2 days
--- NOTE | 2020-11-26 14:17 | P.PN ---
Subjective Date of Service: 11/26/20 Chief Complaint: Dysphagia, protein-calorie malnutrition, Acinetobacter tracheobronchitis Subjective: Improving (feels slightly better today, secretions about the same "maybe a little better". breathing more comfortably. needing frequent suctioning.) Review of Systems 10-point ROS is otherwise unremarkable Physical Examination - Vital Signs Temperature: 97.3 F Blood Pressure: 121/77 Pulse: 90 Respirations: 18 Pulse Ox (%): 96 Assessment & Plan Physician Review Additional Text: Physical Exam General: In no apparent distress, cachectic Neck: Tracheostomy-collar, lots of thick secretions Respiratory: Crackles/rales bilaterally at bases Cardiovascular: No edema, Regular rate/rhythm, Normal S1 S2 Gastrointestinal: Soft and benign, Non-distended, No tenderness Musculoskeletal: No swelling Problem List acute hypoxic respiratory failure secondary to RLL/RML pneumonia, likely aspiration pneumonia acute on chronic COPD exacerbation h/o Silent aspiration / dysphagia Liver cirrhosis BPH HTN h/o laryngeal cancer s/p trach -sputum culture growing Acinetobacter sensitive to Bactrim. continue Bactrim. -tracheal suctioning as needed. - requiring frequent suctioning -occasionally desaturating, likely from mucus plugging -continue steroids, scopolamine patch, sublingual atropin -pulmonary following -chest physiotherapy as tolerated. -continue home medications -seen by GI. PEG tube reinserted. EGD shows erosions and ulcers in the gastric mucosa and duodenum. started PPI. Helicobacter screen sent -resumed PEG tube feeding and medications. -nothing by mouth. Medications and feeding strictly through PEG tube. -slowly improving, still with significant secretions - suctioning ~1L daily VTE: lovenox Code: full Dispo: requiring constant suctioning for copious amounts of secretions, mucus plugging seems to be improving/stabilizing. possible dc in ~2days max oxygen that can be given at intermediate is 6 L, weaning as tolerated Sister visited today, updated. Time Spent Managing Pts Care (In Minutes): 35
[2020-11-27] MEDS: JEVITY 1.5 CAL LIQUID 1,000 ML BOT FT SCH ×6 (01:00→20:58)
[2020-11-27] MEDS: IPRATROPIUM BROM 0.5MG/2.5ML NEB SCH ×4 (01:45→20:00)
[2020-11-27 06:11] LABS: Absolute Lymphocytes (CBC) 1.5 K/uL (0.7-4.9); Basophils % 0.2 % (0-1.3); Hematocrit 39.1 % (39.6-49.0); Lymphocytes % 14.1 % (15.3-44.8); MPV 8.5 fL (7.6-11.3); RBC Red Blood Cell Count 4.84 M/uL (4.33-5.43)
[2020-11-27 06:39] LABS: ALT/SGPT 79 U/L (12-78); AST/SGOT 42 U/L (15-37); Albumin 2.2 g/dL (3.4-5.0); Alkaline Phosphatase 112 U/L (45-117); BUN Blood Urea Nitrogen 15 mg/dL (7-18); Bicarbonate 31 mmol/L (21-32); Bilirubin Total 0.2 mg/dL (0.2-1.0); Glucose Level 122 mg/dL (74-106); Magnesium 2.2 mg/dL (1.8-2.4); Potassium 4.5 mmol/L (3.5-5.1); Protein, Total 8.2 g/dL (6.4-8.2); Sodium Level 135 mmol/L (136-145)
[2020-11-27] MEDS: ENOXAPARIN 40 MG/0.4 ML SQ SCH (08:24)
[2020-11-27] MEDS: FOLIC ACID 1 MG TABLET FT SCH (08:25)
[2020-11-27] MEDS: PANTOPRAZOLE 40 MG INJ IVP SCH (08:25)
[2020-11-27] MEDS: SMZ./TMP. 800/160 MG TABLET PO SCH ×2 (08:25→20:58)
[2020-11-27] MEDS: FAMOTIDINE 20 MG TAB FT SCH ×2 (08:25→20:58)
[2020-11-27] MEDS: predniSONE 10 MG TAB PO SCH ×2 (08:25→20:58)
[2020-11-27] MEDS: THIAMINE HCL 100 MG TABLET FT SCH (08:25)
[2020-11-27] MEDS: Fluticasone/Umeclidin/Vilanter [Trelegy Ellipta 100-62.5-25] Blst.W.Dev IH SCH (08:26)
[2020-11-27] MEDS: SODIUM CHLORIDE 0.9% 10ML INJ IV PRN (08:26)
--- NOTE | 2020-11-27 10:48 | P.PN ---
Subjective Date of Service: 11/27/20 Chief Complaint: Dysphagia, protein-calorie malnutrition, Acinetobacter tracheobronchitis Subjective: No new changes (reports he feels slightly better today - breathing more comfortably, no change in sputum production / secretions per patient. helps with frequent suctioning. still on 10L trach collar.) Review of Systems 10-point ROS is otherwise unremarkable Physical Examination - Vital Signs Temperature: 98.6 F Blood Pressure: 113/92 Pulse: 102 Respirations: 20 Pulse Ox (%): 89 Assessment & Plan Physician Review Additional Text: Physical Exam General: In no apparent distress, cachectic Neck: Tracheostomy-collar, lots of thick secretions Respiratory: Crackles/rales bilaterally at bases Cardiovascular: No edema, Regular rate/rhythm, Normal S1 S2 Gastrointestinal: Soft and benign, Non-distended, No tenderness Musculoskeletal: No swelling, no tenderness Problem List acute hypoxic respiratory failure secondary to RLL/RML pneumonia, likely aspiration pneumonia acute on chronic COPD exacerbation h/o Silent aspiration / dysphagia Liver cirrhosis BPH HTN h/o laryngeal cancer s/p trach -sputum initially grew acinetobacter sensitive to bactrim, repeat culture now beal-resistant -ID consulted -tracheal suctioning as needed. - requiring frequent suctioning -occasionally becomes more hypoxic, likely from mucus plugging, improves with suctioning, less frequent occurrence with more frequent suctioning -continue steroids, scopolamine patch, sublingual atropine, pulmonary following chest physiotherapy as tolerated. -continue home medications -seen by GI. PEG tube reinserted. EGD with erosions and ulcers in the gastric mucosa and duodenum. started PPI. Helicobacter screen sent -resumed PEG tube feeding and medications. -nothing by mouth. Medications and feeding strictly through PEG tube. -slowly improving, still with significant secretions - suctioning ~1L daily -CRP downtrending VTE: lovenox Code: full Dispo: requiring constant suctioning for copious amounts of secretions, mucus plugging. somewhat stabilizing, feels better today now with multi-drug resistant bacterial growth max oxygen that can be given at halfway is 6 L, weaning as tolerated Time Spent Managing Pts Care (In Minutes): 35
--- NOTE | 2020-11-27 11:08 | P.PN ---
Subjective Date of Service: 11/27/20 Chief Complaint: Dysphagia, protein-calorie malnutrition, Acinetobacter tracheobronchitis The patient is a 70-year-old male with a past medical history of BPH, cirrhosis, CABG, hypertension, laryngeal cancer s/p tracheotomy placed, who comes from correction due to shortness breath and cough. Per nursing staff the patient has had increased secretions from history tracheotomy, and has had decreasing O2 stats. History difficult to obtain, history obtained from chart review. Chest x-ray shows right lower lobe/right middle lobe pneumonia, likely due to aspiration. Patient has PEG tube placed. Sputum culture taken on 11/17 2 grew Acinetobactor tra/haem with sensitivity only to Bactrim. Repeat sputum culture performed on 11/25 still grew Acinetobactor tra/haem however showed beal resistance. Review of Systems is unable to be obtained Physical Examination - Vital Signs Temperature: 98.6 F Blood Pressure: 113/92 Pulse: 102 Respirations: 20 Pulse Ox (%): 89 - Physical Exam General: Alert, In no apparent distress HEENT: Atraumatic, Normocephalic Neck: 2+ carotid pulse no bruit, JVD not distended, Other (Tracheostomy) Respiratory: Other (Crackles/rales bilaterally) Cardiovascular: No edema, Regular rate/rhythm Capillary refill: <2 Seconds Gastrointestinal: Normal bowel sounds, Non-distended, Other (PEG tube placed) Musculoskeletal: Other (Diffuse muscle wasting) Integumentary: No rashes, No breakdown, No significant lesion - Studies Temp Pulse Resp BP Pulse Ox 98.6 F 102 H 20 113/92 H 89 L 11/27/20 11:08 11/27/20 11:08 11/27/20 11:08 11/27/20 11:08 11/27/20 11:08 Laboratory Last Values WBC 15.80 K/uL (4.3-10.9) H D 11/17/20 05:54 RBC 4.67 M/uL (4.33-5.43) 11/17/20 05:54 Hgb 11.9 g/dL (13.6-17.9) L 11/17/20 05:54 Hct 37.3 % (39.6-49.0) L 11/17/20 05:54 MCV 79.7 fL (80-100) L 11/17/20 05:54 MCH 25.5 pg (27.0-35.0) L 11/17/20 05:54 MCHC 32.0 g/dL (32.0-36.0) 11/17/20 05:54 RDW 18.0 % (12.1-15.2) H 11/17/20 05:54 Plt Count 362 K/uL (152-406) 11/17/20 05:54 MPV 8.7 fL (7.6-11.3) 11/17/20 05:54 Neutrophils % 87.5 % (41.7-73.7) H 11/17/20 05:54 Lymphocytes % 6.4 % (15.3-44.8) L 11/17/20 05:54 Monocytes % 5.8 % (3.3-12.3) 11/17/20 05:54 Eosinophils % 0.0 % (0-4.4) 11/17/20 05:54 Basophils % 0.3 % (0-1.3) 11/17/20 05:54 Absolute Neutrophils 13.8 K/uL (1.8-8.0) H 11/17/20 05:54 Absolute Lymphocytes 1.0 K/uL (0.7-4.9) 11/17/20 05:54 Absolute Monocytes 0.9 K/uL (0.1-1.3) 11/17/20 05:54 Absolute Eosinophils 0.0 K/uL (0-0.5) 11/17/20 05:54 Absolute Basophils 0.0 K/uL (0-0.5) 11/17/20 05:54 Platelet Estimate Adeq 11/17/20 05:54 Morphology Comment Not seen (NOT SEEN) 11/17/20 05:54 PT 16.5 SECONDS (9.5-12.5) H 11/16/20 06:30 INR 1.43 11/16/20 06:30 Sodium 142 mmol/L (136-145) 11/17/20 05:54 Potassium 4.0 mmol/L (3.5-5.1) 11/17/20 05:54 Chloride 109 mmol/L (98-107) H 11/17/20 05:54 Carbon Dioxide 25 mmol/L (21-32) 11/17/20 05:54 BUN 18 mg/dL (7-18) 11/17/20 05:54 Creatinine 0.61 mg/dL (0.55-1.3) 11/17/20 05:54 Estimated GFR > 90 mL/min (=/>90) 11/17/20 05:54 Glucose 133 mg/dL (74-106) H 11/17/20 05:54 Hemoglobin A1c 6.0 % (4.2-6.3) 11/16/20 14:20 Calcium 9.4 mg/dL (8.5-10.1) 11/17/20 05:54 Magnesium 2.2 mg/dL (1.8-2.4) 11/16/20 06:30 Total Bilirubin 0.3 mg/dL (0.2-1.0) 11/16/20 06:30 Direct Bilirubin < 0.1 mg/dL (0-0.2) 11/16/20 06:30 AST 28 U/L (15-37) 11/16/20 06:30 ALT 41 U/L (12-78) 11/16/20 06:30 Alkaline Phosphatase 94 U/L (45-117) 11/16/20 06:30 Rapid Troponin I < 0.02 ng/mL (0.0-0.045) 11/16/20 06:30 NT-Pro-B Natriuret Pep 173 pg/mL (<125) H 11/16/20 06:30 Serum Total Protein 8.7 g/dL (6.4-8.2) H 11/16/20 06:30 Albumin 2.6 g/dL (3.4-5.0) L 11/16/20 06:30 Globulin 6.1 g/dL (2.3-3.5) H 11/16/20 06:30 Albumin/Globulin Ratio 0.4 (1.1-1.8) L 11/16/20 06:30 Triglycerides 80 mg/dL (<150) 11/16/20 14:20 Cholesterol 192 mg/dL (<200) 11/16/20 14:20 LDL Cholesterol, Calc 117 (<130) 11/16/20 14:20 HDL Cholesterol 59 mg/dL (40-60) 11/16/20 14:20 Cholesterol/HDL Ratio 3.25 11/16/20 14:20 Vancomycin Trough 12.8 ug/mL (5.0-20.0) 11/16/20 13:53 Influenza Type A RNA Negative (NEGATIVE) 11/16/20 06:55 Influenza Type B RNA Negative (NEGATIVE) 11/16/20 06:55 SARS-CoV-2 RNA (RT-PCR) Negative (NEGATIVE) 11/16/20 06:55 Smear Scan Ok (OK) 11/17/20 05:54 Assessment And Plan - Plan Antibiotics: Bactrim start: 11/21 stop: -- Polymyxin B Start: 11/27 stop: -- Assessment: -beal resistant aspiration pneumonia and -acute respiratory failure with hypoxia -liver cirrhosis -history of laryngeal cancer status post tracheostomy -anemia -protein caloric malnutrition moderate Plan: -sputum cultures taken on 11/17 grew Acinetobactor tra/haem sensitive only to Bactrim. Repeat speed will 11/25 still grew Acinetobactor tra/haem however showed beal resistance. Continue Bactrim. Patient started on polymyxin B 150 mg Q 24 hr. Monitor kidney function daily. -medical management per primary team -continue monitor CBC and BMP -continue to monitor for signs of infection Plan of care discussed with Dr. Washington Thank you for consultation
[2020-11-27] MEDS ORDERED: NA CHLORIDE 0.9% IVPB SCH (12:00)
[2020-11-27] MEDS ORDERED: COLISTIMETHATE IVPB SCH (12:00)
[2020-11-27] MEDS ORDERED: NA CHLORIDE 0.9% 250 ML ONE (13:01)
[2020-11-27] MEDS: ATROPINE 1% OPTH DROPS 5ML SL PRN (16:33)
[2020-11-28] MEDS: JEVITY 1.5 CAL LIQUID 1,000 ML BOT FT SCH ×6 (01:00→22:13)
[2020-11-28] MEDS: IPRATROPIUM BROM 0.5MG/2.5ML NEB SCH ×4 (01:35→20:00)
[2020-11-28 05:52] LABS: Absolute Lymphocytes (CBC) 1.4 K/uL (0.7-4.9); Basophils % 0.3 % (0-1.3); Hematocrit 38.4 % (39.6-49.0); Lymphocytes % 12.6 % (15.3-44.8); MPV 8.2 fL (7.6-11.3); RBC Red Blood Cell Count 4.79 M/uL (4.33-5.43)
[2020-11-28 06:07] LABS: BUN Blood Urea Nitrogen 19 mg/dL (7-18); Bicarbonate 31 mmol/L (21-32); Glucose Level 89 mg/dL (74-106); Magnesium 2.2 mg/dL (1.8-2.4); Potassium 4.7 mmol/L (3.5-5.1); Sodium Level 135 mmol/L (136-145)
[2020-11-28] MEDS: predniSONE 10 MG TAB PO SCH (09:00)
[2020-11-28] MEDS: Fluticasone/Umeclidin/Vilanter [Trelegy Ellipta 100-62.5-25] Blst.W.Dev IH SCH (09:00)
[2020-11-28] MEDS: SMZ./TMP. 800/160 MG TABLET PO SCH (09:00)
[2020-11-28] MEDS: ENOXAPARIN 40 MG/0.4 ML SQ SCH (09:00)
[2020-11-28 09:55] LABS: Platelet Estimate ADEQ
[2020-11-28 09:56] LABS: Blood Morphology Comment NOT SEEN (NOT SEEN); Platelets, Giant PRESENT
--- NOTE | 2020-11-28 10:53 | P.PN ---
Subjective Date of Service: 11/28/20 Chief Complaint: Dysphagia, protein-calorie malnutrition, Acinetobacter tracheobronchitis Patient seen examined at bedside, has aches secretions from tracheostomy site. Working with pharmacy to administer colistin in the inhaled form. Will do 75 mg b.i.d.. Review of Systems 10-point ROS is otherwise unremarkable Physical Examination - Vital Signs Temperature: 97.9 F Blood Pressure: 98/64 Pulse: 99 Respirations: 18 Pulse Ox (%): 99 - Studies Temp Pulse Resp BP Pulse Ox 97.9 F 99 H 18 98/64 99 11/28/20 08:00 11/28/20 08:00 11/28/20 08:00 11/28/20 08:00 11/28/20 08:00 Laboratory Last Values WBC 15.80 K/uL (4.3-10.9) H D 11/17/20 05:54 RBC 4.67 M/uL (4.33-5.43) 11/17/20 05:54 Hgb 11.9 g/dL (13.6-17.9) L 11/17/20 05:54 Hct 37.3 % (39.6-49.0) L 11/17/20 05:54 MCV 79.7 fL (80-100) L 11/17/20 05:54 MCH 25.5 pg (27.0-35.0) L 11/17/20 05:54 MCHC 32.0 g/dL (32.0-36.0) 11/17/20 05:54 RDW 18.0 % (12.1-15.2) H 11/17/20 05:54 Plt Count 362 K/uL (152-406) 11/17/20 05:54 MPV 8.7 fL (7.6-11.3) 11/17/20 05:54 Neutrophils % 87.5 % (41.7-73.7) H 11/17/20 05:54 Lymphocytes % 6.4 % (15.3-44.8) L 11/17/20 05:54 Monocytes % 5.8 % (3.3-12.3) 11/17/20 05:54 Eosinophils % 0.0 % (0-4.4) 11/17/20 05:54 Basophils % 0.3 % (0-1.3) 11/17/20 05:54 Absolute Neutrophils 13.8 K/uL (1.8-8.0) H 11/17/20 05:54 Absolute Lymphocytes 1.0 K/uL (0.7-4.9) 11/17/20 05:54 Absolute Monocytes 0.9 K/uL (0.1-1.3) 11/17/20 05:54 Absolute Eosinophils 0.0 K/uL (0-0.5) 11/17/20 05:54 Absolute Basophils 0.0 K/uL (0-0.5) 11/17/20 05:54 Platelet Estimate Adeq 11/17/20 05:54 Morphology Comment Not seen (NOT SEEN) 11/17/20 05:54 PT 16.5 SECONDS (9.5-12.5) H 11/16/20 06:30 INR 1.43 11/16/20 06:30 Sodium 142 mmol/L (136-145) 11/17/20 05:54 Potassium 4.0 mmol/L (3.5-5.1) 11/17/20 05:54 Chloride 109 mmol/L (98-107) H 11/17/20 05:54 Carbon Dioxide 25 mmol/L (21-32) 11/17/20 05:54 BUN 18 mg/dL (7-18) 11/17/20 05:54 Creatinine 0.61 mg/dL (0.55-1.3) 11/17/20 05:54 Estimated GFR > 90 mL/min (=/>90) 11/17/20 05:54 Glucose 133 mg/dL (74-106) H 11/17/20 05:54 Hemoglobin A1c 6.0 % (4.2-6.3) 11/16/20 14:20 Calcium 9.4 mg/dL (8.5-10.1) 11/17/20 05:54 Magnesium 2.2 mg/dL (1.8-2.4) 11/16/20 06:30 Total Bilirubin 0.3 mg/dL (0.2-1.0) 11/16/20 06:30 Direct Bilirubin < 0.1 mg/dL (0-0.2) 11/16/20 06:30 AST 28 U/L (15-37) 11/16/20 06:30 ALT 41 U/L (12-78) 11/16/20 06:30 Alkaline Phosphatase 94 U/L (45-117) 11/16/20 06:30 Rapid Troponin I < 0.02 ng/mL (0.0-0.045) 11/16/20 06:30 NT-Pro-B Natriuret Pep 173 pg/mL (<125) H 11/16/20 06:30 Serum Total Protein 8.7 g/dL (6.4-8.2) H 11/16/20 06:30 Albumin 2.6 g/dL (3.4-5.0) L 11/16/20 06:30 Globulin 6.1 g/dL (2.3-3.5) H 11/16/20 06:30 Albumin/Globulin Ratio 0.4 (1.1-1.8) L 11/16/20 06:30 Triglycerides 80 mg/dL (<150) 11/16/20 14:20 Cholesterol 192 mg/dL (<200) 11/16/20 14:20 LDL Cholesterol, Calc 117 (<130) 11/16/20 14:20 HDL Cholesterol 59 mg/dL (40-60) 11/16/20 14:20 Cholesterol/HDL Ratio 3.25 11/16/20 14:20 Vancomycin Trough 12.8 ug/mL (5.0-20.0) 11/16/20 13:53 Influenza Type A RNA Negative (NEGATIVE) 11/16/20 06:55 Influenza Type B RNA Negative (NEGATIVE) 11/16/20 06:55 SARS-CoV-2 RNA (RT-PCR) Negative (NEGATIVE) 11/16/20 06:55 Smear Scan Ok (OK) 11/17/20 05:54 Assessment And Plan - Plan General: Alert, In no apparent distress HEENT: Atraumatic, Normocephalic Neck: 2+ carotid pulse no bruit, JVD not distended, Other (Tracheostomy) Respiratory: Other (Crackles/rales bilaterally) Cardiovascular: No edema, Regular rate/rhythm Capillary refill: <2 Seconds Gastrointestinal: Normal bowel sounds, Non-distended, Other (PEG tube placed) Musculoskeletal: Other (Diffuse muscle wasting) Integumentary: No rashes, No breakdown, No significant lesion Antibiotics: Bactrim start: 11/21 stop: -- colistin start: 11/28 stop: 12/04 Assessment: -beal resistant aspiration pneumonia and -acute respiratory failure with hypoxia -liver cirrhosis -history of laryngeal cancer status post tracheostomy -anemia -protein caloric malnutrition moderate Plan: -sputum cultures taken on 11/17 grew Acinetobactor tra/haem sensitive only to Bactrim. Repeat speed will 11/25 still grew Acinetobactor tra/haem however showed beal resistance. Continue Bactrim. Patient started on colistin nebulized formula 75 mg Q b.i.d. -continue monitor CBC and BMP -continue to monitor for signs of infection Plan of care discussed with Dr. Washington Thank you for consultation
[2020-11-28] MEDS: FOLIC ACID 1 MG TABLET FT SCH (11:04)
--- NOTE | 2020-11-28 11:04 | P.PN ---
Subjective Date of Service: 11/28/20 Chief Complaint: Respiratory failure copious secretions No change patient continues to have copious secretions Acinetobacter is planned resistant he has a nebulize colistin still continues to be hypoxic Review of Systems is unable to be obtained Physical Examination - Vital Signs Temperature: 97.9 F Blood Pressure: 98/64 Pulse: 99 Respirations: 18 Pulse Ox (%): 99 - Physical Exam General: Alert, Mild distress Respiratory: Expiratory wheezes Cardiovascular: No edema, Normal S1 S2 Assessment & Plan - Problems (Diagnosis) (1) Tracheobronchitis Current Visit: Yes Status: Acute Plan: Patient continues to have tracheobronchitis secondary to resistant Acinetobacter this is a nebulize call a stain Dc steroids chemistries reviewed patient appears to have an infiltrate in the right lower lobe with some atelectasis in the left lower lobe plantar removed the trach cannula I have added Levsin for his secretions
[2020-11-28] MEDS: PANTOPRAZOLE 40 MG INJ IVP SCH (11:06)
[2020-11-28] MEDS: THIAMINE HCL 100 MG TABLET FT SCH (11:06)
[2020-11-28] MEDS: FAMOTIDINE 20 MG TAB FT SCH ×2 (11:06→22:12)
[2020-11-28] MEDS: ACETAMINOPHEN 500 MG TAB PO PRN ×2 (11:07→22:12)
[2020-11-28] MEDS: SCOPOLAMINE HYDROBROMIDE PATCH TD SCH (11:09)
[2020-11-28] MEDS: HYOSCYAMINE SULF 0.125 MG TAB PO SCH ×3 (14:38→22:12)
--- NOTE | 2020-11-28 15:12 | P.PN ---
Subjective Date of Service: 11/28/20 Chief Complaint: Respiratory failure copious secretions Subjective: No new changes (No acute events overnight, patient reports she feels about the same as yesterday. No significant change in secretions. Reports has been few days since last BM, no nausea/vomiting / abd pain) Review of Systems 10-point ROS is otherwise unremarkable Physical Examination - Vital Signs Temperature: 97.3 F Blood Pressure: 113/71 Pulse: 92 Respirations: 18 Pulse Ox (%): 100 Assessment & Plan Physician Review Additional Text: Physical Exam General: In no apparent distress Neck: Tracheostomy-collar, lots of thick secretions Respiratory: bronchial sounds / crackles throughout - transmitted upper airway sounds, on 10L trach collar Cardiovascular: No edema, Regular rate/rhythm, Normal S1 S2 Gastrointestinal: Soft and benign, Non-distended, No tenderness Musculoskeletal: No swelling, no tenderness Problem List acute hypoxic respiratory failure secondary to RLL/RML pneumonia, likely aspiration pneumonia acute on chronic COPD exacerbation h/o Silent aspiration / dysphagia Liver cirrhosis BPH HTN h/o laryngeal cancer s/p trach -sputum initially grew acinetobacter sensitive to bactrim, repeat culture now beal-resistant -ID consulted, Continue Bactrim. Patient started on colistin nebulized formula 75 mg Q b.i.d. -CRP downtrending -tracheal suctioning as needed -continue steroids, scopolamine patch, sublingual atropine, pulmonary following chest physiotherapy as tolerated, levsin added -continue home medications -seen by GI. PEG tube reinserted. EGD with erosions and ulcers in the gastric mucosa and duodenum. started PPI. Helicobacter screen sent -continue PEG tube feeding and medications. -nothing by mouth. Medications and feeding strictly through PEG tube. -slowly improving, still with significant secretions - suctioning ~1L daily VTE: lovenox Code: full Dispo: requiring constant suctioning for copious amounts of secretions, mucus plugging. somewhat stabilizing now with multi-drug resistant bacterial growth max oxygen that can be given at prison is 6 L, weaning as tolerated given continued clinical status with slow improvement, SW/CM consulted for LTAC, patient is agreeable, sister agreeable as well Time Spent Managing Pts Care (In Minutes): 35
[2020-11-28] MEDS: COLISTIMETHATE NA 150 MG/VIAL IH SCH (20:25)
[2020-11-29] MEDS: JEVITY 1.5 CAL LIQUID 1,000 ML BOT FT SCH ×6 (00:46→20:26)
[2020-11-29] MEDS: IPRATROPIUM BROM 0.5MG/2.5ML NEB SCH ×4 (01:15→19:30)
[2020-11-29] MEDS: ACETAMINOPHEN 500 MG TAB PO PRN ×2 (05:00→17:00)
[2020-11-29 05:38] LABS: Hematocrit 38.9 % (39.6-49.0); MPV 8.4 fL (7.6-11.3); RBC Red Blood Cell Count 4.77 M/uL (4.33-5.43)
[2020-11-29] MEDS: COLISTIMETHATE NA 150 MG/VIAL IH SCH ×2 (08:15→19:43)
[2020-11-29] MEDS: Fluticasone/Umeclidin/Vilanter [Trelegy Ellipta 100-62.5-25] Blst.W.Dev IH SCH (09:00)
[2020-11-29] MEDS: ENOXAPARIN 40 MG/0.4 ML SQ SCH (09:00)
--- NOTE | 2020-11-29 09:17 | P.PN ---
Subjective Date of Service: 11/29/20 Chief Complaint: Respiratory failure copious secretions Subjective: No new changes (says he feels a little better each day. continues with secretions and needing frequent suctioning, feels maybe a little better. no BM in a few days, no abd pain/distention, no nausea, +flatus, asking for suppository) Review of Systems 10-point ROS is otherwise unremarkable Physical Examination - Vital Signs Temperature: 98.3 F Blood Pressure: 102/73 Pulse: 100 Respirations: 18 Pulse Ox (%): 89 Assessment & Plan Physician Review Additional Text: Physical Exam General: In no apparent distress Neck: Tracheostomy-collar, lots of thick secretions Respiratory: secretions, crackles at bases, expiratory wheeze, on 8L trach collar Cardiovascular: No edema, Regular rate/rhythm, Normal S1 S2 Gastrointestinal: Soft and benign, Non-distended, No tenderness Musculoskeletal: No swelling, no tenderness Neuro: moves all extremities, follows commands Problem List acute hypoxic respiratory failure secondary to RLL/RML pneumonia, likely aspiration pneumonia acute on chronic COPD exacerbation h/o Silent aspiration / dysphagia Liver cirrhosis BPH HTN h/o laryngeal cancer s/p trach -sputum initially grew acinetobacter sensitive to bactrim, repeat culture now beal-resistant -ID consulted, Continue Bactrim. Patient started on colistin nebulized formula 75 mg Q b.i.d. -CRP downtrending -tracheal suctioning as needed -continue steroids, scopolamine patch, sublingual atropine, pulmonary following chest physiotherapy as tolerated, levsin added on 11/28 -seen by GI - pt removed PEG tube earlier in hospitalization. PEG tube reinserted. EGD with erosions and ulcers in the gastric mucosa and duodenum. started PPI. Helicobacter screen sent -continue PEG tube feeding and medications. -nothing by mouth. Medications and feeding strictly through PEG tube. High risk aspiration -slowly improving, still with significant secretions VTE: lovenox Code: full Dispo: requiring constant suctioning for copious amounts of secretions, mucus plugging. now with multi-drug resistant bacterial growth slow improvement, would benefit from pulm rehab, awaiting approval for LTAC Time Spent Managing Pts Care (In Minutes): 37
[2020-11-29] MEDS: THIAMINE HCL 100 MG TABLET FT SCH (10:03)
[2020-11-29] MEDS: FOLIC ACID 1 MG TABLET FT SCH (10:03)
[2020-11-29] MEDS: PANTOPRAZOLE 40 MG INJ IVP SCH (10:03)
[2020-11-29] MEDS: HYOSCYAMINE SULF 0.125 MG TAB PO SCH ×4 (10:03→20:25)
[2020-11-29] MEDS: FAMOTIDINE 20 MG TAB FT SCH ×2 (10:03→20:25)
--- NOTE | 2020-11-29 11:24 | RAD REPORT ---
EXAM DESCRIPTION: Ramon Single View11/29/2020 11:17 am CLINICAL HISTORY: Hypoxia COMPARISON: November 26, 2020 FINDINGS: Tracheostomy tube in place. Partial resolution in light bilateral pulmonary opacities. Heart is normal size IMPRESSION: Improvement in the bilateral pneumonia
[2020-11-30] MEDS: JEVITY 1.5 CAL LIQUID 1,000 ML BOT FT SCH ×6 (00:50→21:12)
[2020-11-30] MEDS: IPRATROPIUM BROM 0.5MG/2.5ML NEB SCH ×4 (01:25→20:20)
[2020-11-30 06:13] LABS: Absolute Lymphocytes (CBC) 1.7 K/uL (0.7-4.9); Basophils % 0.9 % (0-1.3); Hematocrit 37.6 % (39.6-49.0); Lymphocytes % 16.8 % (15.3-44.8); MPV 8.2 fL (7.6-11.3); RBC Red Blood Cell Count 4.74 M/uL (4.33-5.43)
[2020-11-30] MEDS: COLISTIMETHATE NA 150 MG/VIAL IH SCH ×2 (08:30→20:35)
[2020-11-30] MEDS: ENOXAPARIN 40 MG/0.4 ML SQ SCH (09:00)
[2020-11-30] MEDS: Fluticasone/Umeclidin/Vilanter [Trelegy Ellipta 100-62.5-25] Blst.W.Dev IH SCH (09:00)
[2020-11-30] MEDS: FAMOTIDINE 20 MG TAB FT SCH ×2 (09:29→21:12)
[2020-11-30] MEDS: FOLIC ACID 1 MG TABLET FT SCH (09:29)
[2020-11-30] MEDS: PANTOPRAZOLE 40 MG INJ IVP SCH (09:29)
[2020-11-30] MEDS: THIAMINE HCL 100 MG TABLET FT SCH (09:29)
[2020-11-30] MEDS: HYOSCYAMINE SULF 0.125 MG TAB PO SCH ×4 (09:30→21:12)
--- NOTE | 2020-11-30 15:35 | P.PN ---
Subjective Date of Service: 11/30/20 Chief Complaint: Respiratory failure copious secretions Subjective: Improving (slowly, still with lots of secretions but also seem to be decreasing) Review of Systems 10-point ROS is otherwise unremarkable Physical Examination - Vital Signs Temperature: 97.8 F Blood Pressure: 117/76 Pulse: 99 Respirations: 16 Pulse Ox (%): 97 Assessment & Plan Physician Review Additional Text: Physical Exam General: In no apparent distress, thin Neck: Tracheostomy-collar, +thick secretions Respiratory: secretions, crackles at bases, expiratory wheeze, on 8L trach collar Cardiovascular: No edema, Regular rate/rhythm, Normal S1 S2 Gastrointestinal: Soft and benign, Non-distended, No tenderness Musculoskeletal: No swelling, no tenderness Neuro: moves all extremities, follows commands Problem List acute hypoxic respiratory failure secondary to RLL/RML pneumonia, likely aspiration pneumonia acute on chronic COPD exacerbation h/o Silent aspiration / dysphagia Liver cirrhosis BPH HTN h/o laryngeal cancer s/p trach -sputum initially grew acinetobacter sensitive to bactrim, repeat culture now beal-resistant -ID consulted, Continue Bactrim. Patient started on colistin nebulized formula 75 mg Q b.i.d. -CRP downtrending -tracheal suctioning as needed -continue steroids, scopolamine patch, sublingual atropine, pulmonary following chest physiotherapy as tolerated, levsin added on 11/28 -seen by GI - pt removed PEG tube earlier in hospitalization. PEG tube reinserted. EGD with erosions and ulcers in the gastric mucosa and duodenum. started PPI. Helicobacter screen sent -continue PEG tube feeding and medications. -nothing by mouth. Medications and feeding strictly through PEG tube. High risk aspiration -slowly improving, still with significant amount of secretions but seems to be improving as well VTE: lovenox Code: full Dispo: requiring constant suctioning for copious amounts of secretions, mucus plugging. now with multi-drug resistant bacterial growth slow improvement, would benefit from pulm rehab, awaiting approval for LTAC Time Spent Managing Pts Care (In Minutes): 35
[2020-12-01] MEDS: IPRATROPIUM BROM 0.5MG/2.5ML NEB SCH ×4 (01:05→20:05)
[2020-12-01] MEDS: JEVITY 1.5 CAL LIQUID 1,000 ML BOT FT SCH ×6 (01:49→21:37)
[2020-12-01] MEDS: COLISTIMETHATE NA 150 MG/VIAL IH SCH ×2 (08:19→20:25)
[2020-12-01] MEDS: SCOPOLAMINE HYDROBROMIDE PATCH TD SCH (08:45)
[2020-12-01] MEDS: HYOSCYAMINE SULF 0.125 MG TAB PO SCH ×4 (08:45→21:36)
[2020-12-01] MEDS: THIAMINE HCL 100 MG TABLET FT SCH (08:45)
[2020-12-01] MEDS: FOLIC ACID 1 MG TABLET FT SCH (08:46)
[2020-12-01] MEDS: PANTOPRAZOLE 40 MG INJ IVP SCH (08:46)
[2020-12-01] MEDS: FAMOTIDINE 20 MG TAB FT SCH ×2 (08:46→21:36)
[2020-12-01] MEDS: ENOXAPARIN 40 MG/0.4 ML SQ SCH (08:48)
[2020-12-01] MEDS: Fluticasone/Umeclidin/Vilanter [Trelegy Ellipta 100-62.5-25] Blst.W.Dev IH SCH (08:52)
--- NOTE | 2020-12-01 10:13 | RAD REPORT ---
EXAM DESCRIPTION: Ramon Single View12/01/2020 6:23 am CLINICAL HISTORY: Hypoxia COMPARISON: November 29, 2020 FINDINGS: No significant change in the bibasilar lung opacities. Heart is normal size. Tracheostomy tube in place IMPRESSION: No significant change in the bibasilar pneumonia
--- NOTE | 2020-12-01 10:48 | P.PN ---
Subjective Date of Service: 12/01/20 Chief Complaint: Respiratory failure copious secretions Subjective: No new changes (feels about the same as yesterday. RT reports secretions are less, but still requiring frequent suctioning. FiO2 need increasing.) Review of Systems 10-point ROS is otherwise unremarkable Physical Examination - Vital Signs Temperature: 97.1 F Blood Pressure: 92/60 Pulse: 103 Respirations: 21 Pulse Ox (%): 91 Assessment & Plan Physician Review Additional Text: Physical Exam General: In no apparent distress, thin Neck: Tracheostomy-collar, +thick secretions Respiratory: crackles at bases bilaterally, on trach collar Cardiovascular: No edema, Regular rate/rhythm, Normal S1 S2 Gastrointestinal: Soft and benign, Non-distended, No tenderness, PEG tube in place Musculoskeletal: No swelling, no tenderness Neuro: moves all extremities, follows commands Problem List acute hypoxic respiratory failure secondary to RLL/RML pneumonia, likely aspiration pneumonia acute on chronic COPD exacerbation h/o Silent aspiration / dysphagia Liver cirrhosis BPH HTN h/o laryngeal cancer s/p trach -sputum initially grew acinetobacter sensitive to bactrim, repeat culture beal- resistant -ID consulted, Continue Bactrim. Patient started on colistin nebulized formula 75 mg Q b.i.d. -CRP downtrended and now around 40-50 -tracheal suctioning as needed -continue steroids, scopolamine patch, sublingual atropine, pulmonary following chest physiotherapy as tolerated, levsin added on 11/28 -seen by GI - pt removed PEG tube earlier in hospitalization. PEG tube reinserted. EGD with erosions and ulcers in the gastric mucosa and duodenum. started PPI. Helicobacter screen sent -continue PEG tube feeding and medications. nothing by mouth. Medications and feeding strictly through PEG tube. High risk aspiration -secretions slowly improving -CXR noted improvement 2days ago, repeat CXR today, FIO2 need increased. most likely from plugging VTE: lovenox Code: full Dispo: requiring constant suctioning for copious amounts of secretions, mucus plugging. now with multi-drug resistant bacterial growth slow improvement, would benefit from pulm rehab, awaiting approval for LTAC Time Spent Managing Pts Care (In Minutes): 35
--- NOTE | 2020-12-01 12:18 | PN ---
Subjective: The patient is lying in bed. Denied any discomfort. Trach collar in place. Right rohini pheral line is in place. SCD in place. According to the staff, the patient is able to holding his f eedings without any problems. The patient continues to be on high oxygen level. Objective: Vital Signs: Temperature 97, pulse 103, respirations 21, blood pressure 92/51, had 80% F iO2. Lungs: Basal crackles. Heart: S1, S2. Regular. Abdomen: Soft, nontender. Bowel sounds present. Extremity: No edema. Muscle wasting noted. Laboratory Data: Shows WBC 10.2, hemoglobin 12.4, platelets are 352. Chemistry shows sodium 135, po tassium 4.7, chloride 99, bicarb , BUN 19, creatinine 0.5, glucose 89. C-reactive protein is 54. Procalcitonin is 0.08. Micro data shows Acinetobacter baumannii in the sputum. Blood cultur es are negative for 5 days. The patient is resistant . Assessment And Plan: Aspiration pneumonia. The patient is currently being treated with oxygen thera py and also . We will continue to monitor his kidney function and monitor for signs of inf ection. Recommend to transfer the patient to long-term acute care. We will follow the patient as ne eded. NF/MODL Voice ID: [id number] Report ID: [id number]
[2020-12-02] MEDS: JEVITY 1.5 CAL LIQUID 1,000 ML BOT FT SCH ×6 (01:04→21:31)
[2020-12-02] MEDS: IPRATROPIUM BROM 0.5MG/2.5ML NEB SCH ×4 (01:25→20:50)
[2020-12-02 04:29] LABS: Absolute Lymphocytes (CBC) 1.3 K/uL (0.7-4.9); Basophils % 0.6 % (0-1.3); Hematocrit 34.8 % (39.6-49.0); Lymphocytes % 14.5 % (15.3-44.8); MPV 8.3 fL (7.6-11.3)
[2020-12-02 04:44] LABS: ALT/SGPT 53 U/L (12-78); AST/SGOT 28 U/L (15-37); Alkaline Phosphatase 98 U/L (45-117); BUN Blood Urea Nitrogen 17 mg/dL (7-18); Bicarbonate 35 mmol/L (21-32); Bilirubin Total 0.3 mg/dL (0.2-1.0); Glucose Level 106 mg/dL (74-106); Potassium 3.9 mmol/L (3.5-5.1); Protein, Total 7.4 g/dL (6.4-8.2); Sodium Level 135 mmol/L (136-145)
[2020-12-02] MEDS: COLISTIMETHATE NA 150 MG/VIAL IH SCH ×2 (08:39→21:05)
[2020-12-02] MEDS ORDERED: POTASSIUM 25 MEQ EFFERV TAB PO ONE (09:00)
[2020-12-02] MEDS: Fluticasone/Umeclidin/Vilanter [Trelegy Ellipta 100-62.5-25] Blst.W.Dev IH SCH (09:00)
[2020-12-02] MEDS: HYOSCYAMINE SULF 0.125 MG TAB PO SCH ×4 (10:21→21:30)
[2020-12-02] MEDS: FAMOTIDINE 20 MG TAB FT SCH ×2 (10:21→21:30)
[2020-12-02] MEDS: FOLIC ACID 1 MG TABLET FT SCH (10:21)
[2020-12-02] MEDS: PANTOPRAZOLE 40 MG INJ IVP SCH (10:21)
[2020-12-02] MEDS: THIAMINE HCL 100 MG TABLET FT SCH (10:21)
[2020-12-02] MEDS: ENOXAPARIN 40 MG/0.4 ML SQ SCH (10:22)
[2020-12-02] MEDS: ATROPINE 1% OPTH DROPS 5ML SL PRN (10:23)
--- NOTE | 2020-12-02 10:44 | P.PN ---
Subjective Date of Service: 12/02/20 Chief Complaint: Respiratory failure copious secretions Patient seen examined at bedside, no acute changes. Review of Systems 10-point ROS is otherwise unremarkable Physical Examination - Vital Signs Temperature: 97.3 F Blood Pressure: 98/58 Pulse: 104 Respirations: 20 Pulse Ox (%): 90 - Studies Temp Pulse Resp BP Pulse Ox 97.3 F 104 H 20 98/58 L 90 L 12/02/20 08:00 12/02/20 08:00 12/02/20 08:00 12/02/20 08:00 12/02/20 08:00 Active Medications Acetaminophen (Acetaminophen 500 Mg Tab) 500 mg PO Q6H PRN PRN Reason: TEMP > 100' F Last Admin: 11/29/20 17:00 Dose: 500 mg Documented by: Atropine Sulfate (Atropine 1% Opth Drops 5ml) 2 drops SL Q4H PRN PRN Reason: SECRETIONS Last Admin: 12/02/20 10:23 Dose: 2 drops Documented by: Colistimethate Sodium (Colistimethate Na 150 Mg/Vial) 75 mg IH Q12H [facility] Last Admin: 12/02/20 08:39 Dose: 75 mg Documented by: Enoxaparin Sodium (Enoxaparin 40 Mg/0.4 Ml) 40 mg SQ DAILY [facility] Last Admin: 12/02/20 10:22 Dose: 40 mg Documented by: Famotidine (Famotidine 20 Mg Tab) 20 mg FT Q12HR [facility]; Protocol Last Admin: 12/02/20 10:21 Dose: 20 mg Documented by: Folic Acid (Folic Acid 1 Mg Tablet) 1 mg FT DAILY [facility] Last Admin: 12/02/20 10:21 Dose: 1 mg Documented by: Home Med (Sennosides/Docusate Sodium [Senna Plus 8.6-50 Mg Softgel]) 8.6 mg FT Q12HP PRN PRN Reason: CONSTIPATION Home Med (Fluticasone/Umeclidin/Vilanter [Trelegy Ellipta 100-62.5-25]) 1 each IH DAILY [facility] Last Admin: 12/02/20 09:00 Dose: Not Given Documented by: Hyoscyamine Sulfate (Hyoscyamine Sulf 0.125 Mg Tab) 0.125 mg PO QID [facility] Last Admin: 12/02/20 10:21 Dose: 0.125 mg Documented by: Ipratropium [place] (Ipratropium Brom 0.5mg/2.5ml) 0.5 mg NEB [id number] [facility] Last Admin: 12/02/20 08:45 Dose: 0.5 mg Documented by: Ondansetron HCl (Ondansetron 4 Mg/2 Ml Vial) 4 mg IV Q6H PRN PRN Reason: NAUSEA / VOMITING Pantoprazole Sodium (Pantoprazole 40 Mg Inj) 40 mg IVP DAILY [facility]; Protocol Last Admin: 12/02/20 10:21 Dose: 40 mg Documented by: Scopolamine HBr (Scopolamine Hydrobromide Patch) 1 pat TD Q3D@0900 [facility] Last Admin: 12/01/20 08:45 Dose: 1 pat Documented by: Sodium Chloride (Flush Normal Saline 10 Ml) 10 ml IV BID [facility] Last Admin: 12/02/20 09:00 Dose: 10 ml Documented by: Sodium Chloride (Sodium Chloride 0.9% 10ml Inj) 10 ml IV UD PRN PRN Reason: Diluant Last Admin: 11/27/20 08:26 Dose: 10 ml Documented by: Thiamine HCl (Thiamine Hcl 100 Mg Tablet) 100 mg FT DAILY [facility] Last Admin: 12/02/20 10: Dose: 100 mg Documented by: Assessment And Plan - Plan General: Alert, In no apparent distress HEENT: Atraumatic, Normocephalic Neck: 2+ carotid pulse no bruit, JVD not distended, Other (Tracheostomy) Respiratory: Other (Crackles/rales bilaterally) Cardiovascular: No edema, Regular rate/rhythm Capillary refill: <2 Seconds Gastrointestinal: Normal bowel sounds, Non-distended, Other (PEG tube placed) Musculoskeletal: Other (Diffuse muscle wasting) Integumentary: No rashes, No breakdown, No significant lesion Antibiotics: colistin start: 11/28 stop: 12/04 Assessment: -bael resistant aspiration pneumonia and -acute respiratory failure with hypoxia -liver cirrhosis -history of laryngeal cancer status post tracheostomy -anemia -protein caloric malnutrition moderate Plan: -sputum cultures taken on 11/17 grew Acinetobactor tra/haem sensitive only to Bactrim. Repeat speed will 11/25 still grew Acinetobactor tra/haem however showed beal resistance. Patient completed course of bactrim. Patient started on colistin nebulized formula 75 mg Q b.i.d. -continue monitor CBC and BMP -inflammatory markers: CRP still elevated. Awaiting repeat procalcitonin. -continue to monitor for signs of infection Plan of care discussed with Dr. Washington Thank you for consultation
--- NOTE | 2020-12-02 13:44 | P.PN ---
Subjective Date of Service: 12/02/20 Chief Complaint: Respiratory failure copious secretions Patient has persistent copious tracheal secretions. He is tolerating PEG tube feeding. Currently owned 8 L oxygen by [id number]. Physical Examination - Vital Signs Temperature: 98.2 F Blood Pressure: 170/81 Pulse: 82 Respirations: 18 Pulse Ox (%): 96 - Physical Exam General: In no apparent distress, Confused Respiratory: Diminished, Other (Bilateral upper airway transmitted sounds) Cardiovascular: No edema, Regular rate/rhythm, Normal S1 S2 Gastrointestinal: Soft and benign, Non-distended, Other (PEG tube) Musculoskeletal: No swelling, No tenderness Integumentary: No rashes Assessment And Plan Physician Review Additional Text: Physical Exam General: In no apparent distress, thin Neck: Tracheostomy-collar, +thick secretions Respiratory: crackles at bases bilaterally, on trach collar Cardiovascular: No edema, Regular rate/rhythm, Normal S1 S2 Gastrointestinal: Soft and benign, Non-distended, No tenderness, PEG tube in place Musculoskeletal: No swelling, no tenderness Neuro: moves all extremities, follows commands Problem List acute hypoxic respiratory failure secondary to RLL/RML pneumonia, likely aspiration pneumonia acute on chronic COPD exacerbation h/o Silent aspiration / dysphagia Liver cirrhosis BPH HTN h/o laryngeal cancer s/p trach -sputum initially grew acinetobacter sensitive to bactrim, repeat culture shows beal-resistant organism -ID consulted, On Bactrim. Patient started on colistin nebulized formula 75 mg Q b.i.d. -CRP downtrended. -tracheal suctioning as needed -continue steroids, scopolamine patch, sublingual atropine, pulmonary following. -chest physiotherapy as tolerated, levsin added. -seen by GI - pt removed PEG tube earlier in hospitalization. PEG tube reinserted. EGD with erosions and ulcers in the gastric mucosa and duodenum. started PPI. Helicobacter screen sent -continue PEG tube feeding and medications. nothing by mouth. Medications and feeding strictly through PEG tube. High risk aspiration -secretions slowly improving -CXR noted improvement 2days ago, repeat CXR 12/01: No significant change. -wean FiO2 -november D/c to care home once he tolerate 6 L of oxygen VTE: lovenox Code: full
[2020-12-03] MEDS: JEVITY 1.5 CAL LIQUID 1,000 ML BOT FT SCH ×3 (01:46→09:00)
[2020-12-03] MEDS: IPRATROPIUM BROM 0.5MG/2.5ML NEB SCH ×3 (01:55→13:00)
[2020-12-03 06:16] LABS: BUN Blood Urea Nitrogen 16 mg/dL (7-18); Bicarbonate 36 mmol/L (21-32); Glucose Level 87 mg/dL (74-106); Sodium Level 137 mmol/L (136-145)
[2020-12-03] MEDS: COLISTIMETHATE NA 150 MG/VIAL IH SCH (07:58)
[2020-12-03] MEDS: ENOXAPARIN 40 MG/0.4 ML SQ SCH (09:00)
[2020-12-03] MEDS: Fluticasone/Umeclidin/Vilanter [Trelegy Ellipta 100-62.5-25] Blst.W.Dev IH SCH (09:00)
--- NOTE | 2020-12-03 09:53 | P.PN ---
Subjective Date of Service: 12/03/20 Chief Complaint: Respiratory failure copious secretions Patient seen examined at bedside, weaning oxygen as tolerated. Review of Systems 10-point ROS is otherwise unremarkable Physical Examination - Vital Signs Temperature: 97.9 F Blood Pressure: 105/62 Pulse: 90 Respirations: 24 Pulse Ox (%): 95 - Studies Temp Pulse Resp BP Pulse Ox 97.9 F 90 24 H 105/62 95 12/03/20 08:00 12/03/20 08:00 12/03/20 08:00 12/03/20 08:00 12/03/20 08:00 Active Medications Acetaminophen (Acetaminophen 500 Mg Tab) 500 mg PO Q6H PRN PRN Reason: TEMP > 100' F Last Admin: 11/29/20 17:00 Dose: 500 mg Documented by: Atropine Sulfate (Atropine 1% Opth Drops 5ml) 2 drops SL Q4H PRN PRN Reason: SECRETIONS Last Admin: 12/02/20 10:23 Dose: 2 drops Documented by: Colistimethate Sodium (Colistimethate Na 150 Mg/Vial) 75 mg IH Q12H [facility] Last Admin: 12/02/20 21:05 Dose: 75 mg Documented by: Enoxaparin Sodium (Enoxaparin 40 Mg/0.4 Ml) 40 mg SQ DAILY [facility] Last Admin: 12/02/20 10:22 Dose: 40 mg Documented by: Famotidine (Famotidine 20 Mg Tab) 20 mg FT Q12HR [facility]; Protocol Last Admin: 12/02/20 21:30 Dose: 20 mg Documented by: Folic Acid (Folic Acid 1 Mg Tablet) 1 mg FT DAILY [facility] Last Admin: 12/02/20 10:21 Dose: 1 mg Documented by: Home Med (Sennosides/Docusate Sodium [Senna Plus 8.6-50 Mg Softgel]) 8.6 mg FT Q12HP PRN PRN Reason: CONSTIPATION Home Med (Fluticasone/Umeclidin/Vilanter [Trelegy Ellipta 100-62.5-25]) 1 each IH DAILY [facility] Last Admin: 12/02/20 09:00 Dose: Not Given Documented by: Hyoscyamine Sulfate (Hyoscyamine Sulf 0.125 Mg Tab) 0.125 mg PO QID [facility] Last Admin: 12/02/20 21:30 Dose: 0.125 mg Documented by: Ipratropium [place] (Ipratropium Brom 0.5mg/2.5ml) 0.5 mg NEB [id number] [facility] Last Admin: 12/03/20 01:55 Dose: 0.5 mg Documented by: Ondansetron HCl (Ondansetron 4 Mg/2 Ml Vial) 4 mg IV Q6H PRN PRN Reason: NAUSEA / VOMITING Pantoprazole Sodium (Pantoprazole 40 Mg Inj) 40 mg IVP DAILY [facility]; Protocol Last Admin: 12/02/20 10:21 Dose: 40 mg Documented by: Scopolamine HBr (Scopolamine Hydrobromide Patch) 1 pat TD Q3D@0900 [facility] Last Admin: 12/01/20 08:45 Dose: 1 pat Documented by: Sodium Chloride (Flush Normal Saline 10 Ml) 10 ml IV BID [facility] Last Admin: 12/02/20 21:30 Dose: 10 ml Documented by: Sodium Chloride (Sodium Chloride 0.9% 10ml Inj) 10 ml IV UD PRN PRN Reason: Diluant Last Admin: 11/27/20 08:26 Dose: 10 ml Documented by: Thiamine HCl (Thiamine Hcl 100 Mg Tablet) 100 mg FT DAILY [facility] Last Admin: 12/02/20 10:21 Dose: 100 mg Documented by: Assessment And Plan - Plan General: Alert, In no apparent distress HEENT: Atraumatic, Normocephalic Neck: 2+ carotid pulse no bruit, JVD not distended, Other (Tracheostomy) Respiratory: Other (Crackles/rales bilaterally) Cardiovascular: No edema, Regular rate/rhythm Capillary refill: <2 Seconds Gastrointestinal: Normal bowel sounds, Non-distended, Other (PEG tube placed) Musculoskeletal: Other (Diffuse muscle wasting) Integumentary: No rashes, No breakdown, No significant lesion Antibiotics: colistin start: 11/28 stop: 12/04 Assessment: -beal resistant aspiration pneumonia and -acute respiratory failure with hypoxia -liver cirrhosis -history of laryngeal cancer status post tracheostomy -anemia -protein caloric malnutrition moderate Plan: -sputum cultures taken on 11/17 grew Acinetobactor tra/haem sensitive only to Bactrim. Repeat speed will 11/25 still grew Acinetobactor tar/haem however showed beal resistance. Patient completed course of bactrim. Patient started on colistin nebulized formula 75 mg Q b.i.d. -continue monitor CBC and BMP -inflammatory markers: CRP still elevated. Awaiting repeat procalcitonin. -continue to monitor for signs of infection Plan of care discussed with Dr. Washington Thank you for consultation
[2020-12-03] MEDS: THIAMINE HCL 100 MG TABLET FT SCH (10:15)
[2020-12-03] MEDS: HYOSCYAMINE SULF 0.125 MG TAB PO SCH ×3 (10:15→17:31)
[2020-12-03] MEDS: FAMOTIDINE 20 MG TAB FT SCH (10:16)
[2020-12-03] MEDS: FOLIC ACID 1 MG TABLET FT SCH (10:16)
[2020-12-03] MEDS: PANTOPRAZOLE 40 MG INJ IVP SCH (10:17)
[2020-12-03] MEDS: JEVITY 1.2 CAL LIQUID 1,000 ML BOT FT SCH ×2 (11:20→16:01)
[2020-12-03 13:52] VITALS: O2SAT 95
[2020-12-03 17:46] VITALS: BP 102/63; TEMP 98.3
--- NOTE | 2020-12-03 18:04 | P.DS ---
Admission Date: 11/17/20 Discharge Date: 12/03/20 Disposition: RETIREMENT ACUTE CARE FACILITY Discharge Condition: FAIR Reason for Admission: Respiratory failure copious secretions Consultations: Pulmonary GI - Problems (1) History of laryngeal cancer Current Visit: Yes Status: Acute (2) Dysphagia Current Visit: Yes Status: Acute (3) Protein calorie malnutrition Current Visit: Yes Status: Acute (4) Tracheobronchitis Current Visit: Yes Status: Acute (5) Cirrhosis of liver Current Visit: No Status: Acute (6) Pneumonia Current Visit: No Status: Acute Qualifiers: Pneumonia type: due to unspecified organism Laterality: unspecified laterality Lung location: unspecified part of lung Qualified Code(s): J18.9 - Pneumonia, unspecified organism Brief History of Present Illness: 70-year-old male a past medical history significant for BPH, Cirrhosis, COPD, Hypertension, Laryngeal CA, squamous cell carcinoma, status post tracheostomy was transferred from the senior living to the emergency department due to complaint of shortness of breath and cough. [facility] staff noted that patient had increased secretions from his tracheostomy and hypoxia. CT chest done in the emergency department demonstrated multilobular pneumonia and findings suggestive of mucus plugging. Patient was admitted for further management. Hospital Course: Diagnosis Acute hypoxic respiratory failure secondary to RLL/RML pneumonia, likely aspiration pneumonia acute on chronic COPD exacerbation h/o Silent aspiration / dysphagia Liver cirrhosis BPH HTN h/o laryngeal cancer s/p trach -patient started on broad-spectrum antibiotics. -pulmonary consulted to evaluate -sputum initially grew acinetobacter sensitive to bactrim, repeat culture shows beal-resistant organism -ID consulted, patient initially treated with Bactrim and then transitioned to colistin nebulized formula 75 mg Q b.i.d. due to beal resistant Acinetobacter -CRP downtrended. -tracheal suctioning done almost every 2 hours. -treated with steroids, scopolamine patch, sublingual atropine -chest physiotherapy as tolerated, levsin added for increased tracheal secretion. -seen by GI - pt removed PEG tube earlier in hospitalization. PEG tube reinserted by GI. EGD showed erosions and ulcers in the gastric mucosa and duodenum. -started PPI. Helicobacter screen sent and still pending. -continued PEG tube feeding and medications by PEG. nothing by mouth. Medications and feeding strictly through PEG tube. High risk aspiration -CXR noted improvement 2days ago, repeat CXR 12/01: No significant change. -he is tolerating 35% FiO2 via T-piece. -patient accepted to LTAC for further management. Vitals are stable for transfer. Vital Signs/Physical Exam: Temp Pulse Resp BP Pulse Ox 98.3 F 95 H 20 102/63 96 12/03/20 16:00 12/03/20 16:00 12/03/20 16:00 12/03/20 16:00 12/03/20 16:00 General: Confused, Other (Awake) Neck: Other (Tracheostomy) Respiratory: Crackles/rales (Bibasilar), Other (Bilateral upper airway transmitted sounds.) Cardiovascular: No edema, Regular rate/rhythm, Normal S1 S2 Gastrointestinal: Normal bowel sounds, Soft and benign, Non-distended, No tenderness, Other (PEG tube in place) Musculoskeletal: No swelling, No tenderness Integumentary: No rashes Neurological: Other (No focal motor deficit.) Laboratory Data at Discharge: WBC 9.20 K/uL (4.3-10.9) 12/02/20 03:55 Hgb 11.1 g/dL (13.6-17.9) L 12/02/20 03:55 Hct 34.8 % (39.6-49.0) L 12/02/20 03:55 Plt Count 329 K/uL (152-406) 12/02/20 03:55 PT 16.5 SECONDS (9.5-12.5) H 11/16/20 06:30 INR 1.43 11/16/20 06:30 Sodium 137 mmol/L (136-145) 12/03/20 05:24 Potassium 4.0 mmol/L (3.5-5.1) 12/03/20 05:24 BUN 16 mg/dL (7-18) 12/03/20 05:24 Creatinine 0.57 mg/dL (0.55-1.3) 12/03/20 05:24 Glucose 87 mg/dL (74-106) 12/03/20 05:24 Phosphorus 2.6 mg/dL (2.5-4.9) 11/18/20 04:57 Magnesium 2.0 mg/dL (1.8-2.4) 12/02/20 03:55 Total Bilirubin 0.3 mg/dL (0.2-1.0) 12/02/20 03:55 AST 28 U/L (15-37) 12/02/20 03:55 ALT 53 U/L (12-78) 12/02/20 03:55 Alkaline Phosphatase 98 U/L (45-117) 12/02/20 03:55 Triglycerides 80 mg/dL (<150) 11/16/20 14:20 Cholesterol 192 mg/dL (<200) 11/16/20 14:20 HDL Cholesterol 59 mg/dL (40-60) 11/16/20 14:20 Cholesterol/HDL Ratio 3.25 11/16/20 14:20 Home Medications: Acetylcysteine 3 ml NEB TID 10/02/20 Famotidine 20 mg FT Q12H 10/02/20 Sennosides/Docusate Sodium [Senna Plus 8.6-50 mg Softgel] 8.6 mg FT Q12HP PRN 10/02/20 Fluticasone/Umeclidin/Vilanter [Trelegy Ellipta 100-62.5-25] 1 each IH DAILY #1 blst.w.dev 10/03/20 Folic Acid 1 mg FT DAILY #90 tablet 10/03/20 Thiamine HCl 100 mg FT DAILY #90 tablet 10/03/20 Atropine 1% Opth Sally [Atropine 1% Opth Sally*] 2 drops SL Q4H PRN bot 12/03/20 Colistimethate [Coly-Mycin M*] 75 mg IH Q12H #2 vial 12/03/20 Hyoscyamine Sulfate [Levsin TAB*] 0.125 mg PO QID tab 12/03/20 Ipratropium Neb [Atrovent*] 0.5 mg NEB [id number] amp 12/03/20 Jevity 1.2 Henry Liquid 230 ml FT Q6H bot 12/03/20 Pantoprazole Inj [Protonix IV*] 40 mg IVP DAILY vial 12/03/20 Scopolamine Hydrobromide [Transderm-Scop*] 1 pat TD Q3D@0900 patch 12/03/20 Diet: G-tube. Activity: Fall precautions Followup: MANDA MCMANUS [Primary Care Provider] - Time spent managing pt's care (in minutes): 40
== END 2020-12-03 20:10 | DRG 177 ==
LOC: ER 06:10 → ERHOLD 10:22 → 2ND 12:37 → OBSVTOIN 11-17 07:53
PROVIDERS: ADMIT Hospitalist; ATTEND Internal Medicine
PROC: 0B21XFZ Change Tracheostomy Device in Trachea, External Approach (ICD-10-PCS; 2020-11-17)
PROC: 0DH63UZ Insertion of Feeding Device into Stomach, Percutaneous Approach (ICD-10-PCS; principal; 2020-11-24 10:30)
DX: J69.0 Pneumonitis due to inhalation of food and vomit (principal); G93.41 Metabolic encephalopathy; E43 Unspecified severe protein-calorie malnutrition; J96.01 Acute respiratory failure with hypoxia; J95.03 Malfunction of tracheostomy stoma; J44.1 Chronic obstructive pulmonary disease with (acute) exacerbation; J44.0 Chronic obstructive pulmonary disease with (acute) lower respiratory infection; Z16.20 Resistance to unspecified antibiotic; J20.9 Acute bronchitis, unspecified; K74.60 Unspecified cirrhosis of liver; K29.80 Duodenitis without bleeding; N40.0 Benign prostatic hyperplasia without lower urinary tract symptoms; D64.9 Anemia, unspecified; K26.9 Duodenal ulcer, unspecified as acute or chronic, without hemorrhage or perforation; K44.9 Diaphragmatic hernia without obstruction or gangrene; I10 Essential (primary) hypertension; B96.5 Pseudomonas (aeruginosa) (mallei) (pseudomallei) as the cause of diseases classified elsewhere; Z68.20 Body mass index [BMI] 20.0-20.9, adult; Z79.52 Long term (current) use of systemic steroids; Z79.899 Other long term (current) drug therapy; Z87.891 Personal history of nicotine dependence; Z85.21 Personal history of malignant neoplasm of larynx; Z20.822 Contact with and (suspected) exposure to COVID-19
CPT/HCPCS: 0240U; 36415; 71045; 71046; 71250; 71275; 80048; 80053; 80061; 80076; 80202; 81003; 82805; 83036; 83605; 83735; 83880; 84100; 84145; 84484; 85025; 85027; 85610; 86140; 87040; 87070; 87077; 87186; 87205; 93005; 94640; 94760; 96365; 96366; 96375; 97110; 97161; 97530; 99285; C9113; J0690; J0770; J1650; J2543; J2704; J2920; J2930; J3370; J7040; J7042; J7050; J7512; Q9967